=== PATIENT | female | born 1960 | race Caucasian/White ===

== ENCOUNTER 2017-05-27 16:38 | Inpatient (IN) | payer SELFPAY ==
[~2017-05-27] VITALS: Ht 157.5 cm; Wt 52.5 kg
[2017-05-27 17:11] VITALS: BP 140/78; PULSE 107; RESP 12; TEMP 97.7; O2SAT 97
[2017-05-27 17:22] VITALS: BP 140/78; PULSE 107; RESP 12; TEMP 97.7; O2SAT 97
[2017-05-27] MEDS ORDERED: SODIUM CHLORIDE 0.9% FLUSH 5 ML FLUSH IV FLUSH PRN (17:30)
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
--- NOTE | 2017-05-27 17:55 | RADRPT ---
EXAM DATE/TIME: 05/27/2017 17:38 [facility] COMPARISON: No previous studies available for comparison. INDICATIONS : Short of breath and syncope. MEDICAL HISTORY : None. SURGICAL HISTORY : None. ENCOUNTER: Initial ACUITY: 1 day PAIN SCORE: 0/10 LOCATION: Bilateral chest FINDINGS: A single view of the chest demonstrates the lungs to be symmetrically aerated without evidence of mas s, infiltrate or effusion. The cardiomediastinal contours are unremarkable. Osseous structures are intact. CONCLUSION: No acute disease. Dayron Lombardi MD on May 27, 2017 at 17:53 Board Certified Radiologist. This report was verified electronically.
[2017-05-27 18:14] LABS: BASOPHIL # 0.1 TH/MM3 (0-0.2); BASOPHIL % 0.6 % (0.0-2.0); HEMATOCRIT 36.9 % (35.0-46.0); HEMO FLAGS DIFF FINAL; LYMPH % 28.3 % (9.0-44.0); LYMPHOCYTE # 2.7 TH/MM3 (1.0-4.8); MEAN CELL VOLUME 91.6 FL (80.0-100.0); MEAN CORPUSCULAR HGB CONC 33.9 % (32.0-36.0); MONO % 8.7 % (0.0-8.0); NEUT % 62.4 % (16.0-70.0); PLATELET COUNT 332 TH/MM3 (150-450); RED BLOOD COUNT 4.03 MIL/MM3 (4.00-5.30); RED CELL DISTRIBUTION WIDTH 14.5 % (11.6-17.2); WHITE BLOOD COUNT 9.6 TH/MM3 (4.0-11.0)
[2017-05-27 18:27] LABS: INTERNATIONAL NORMALIZED RATIO 0.9 RATIO; PROTHROMBIN TIME - PATIENT 9.7 SEC (9.8-11.6)
[2017-05-27 18:28] LABS: ANION GAP 13 MEQ/L (5-15)
[2017-05-27 18:29] LABS: APTT (PATIENT) 24.1 SEC (24.3-30.1)
[2017-05-27 18:33] LABS: ALKALINE PHOSPHATASE 79 U/L (45-117); ALT (GPT) 85 U/L (10-53); AST (GOT) 89 U/L (15-37); BICARBONATE 23.4 MEQ/L (21.0-32.0); BLOOD UREA NITROGEN 10 MG/DL (7-18); CHLORIDE 83 MEQ/L (98-107); CREATINE KINASE 333 U/L (26-192); GLOMERULAR FILTRATION RATE 78 ML/MIN (>89); TOTAL BILIRUBIN ADULT 0.3 MG/DL (0.2-1.0)
[2017-05-27 18:45] LABS: ALCOHOL 374 MG/DL (0-5); POTASSIUM 4.8 MEQ/L (3.5-5.1)
[2017-05-27 18:46] LABS: SODIUM (NA) 119 MEQ/L (136-145)
--- NOTE | 2017-05-27 18:56 | RADRPT ---
EXAM DATE/TIME: 05/27/2017 18:28 [facility] COMPARISON: No previous studies available for comparison. INDICATIONS : Confusion with altered mental status. RADIATION DOSE: 28.45 CTDIvol (mGy) MEDICAL HISTORY : Diabetes mellitus type 2. SURGICAL HISTORY : Cholecystectomy. section. ENCOUNTER: Initial ACUITY: 1 day PAIN SCALE: 9/10 LOCATION: Bilateral cranial TECHNIQUE: Multiple contiguous axial images were obtained of the head. Using automated exposure control and adj ustment of the mA and/or kV according to patient size, radiation dose was kept as low as reasonably a chievable to obtain optimal diagnostic quality images. DICOM format image data is available electro nically for review and comparison. FINDINGS: CEREBRUM: The ventricles are normal for age. No evidence of midline shift, mass lesion, hemorrhage or acute in farction. No extra-axial fluid collections are seen. POSTERIOR FOSSA: The cerebellum and brainstem are intact. The 4th ventricle is midline. The cerebellopontine angle i s unremarkable. EXTRACRANIAL: The visualized portion of the orbits is intact. SKULL: The calvaria is intact. No evidence of skull fracture. CONCLUSION: Normal examination for a patient of this age. Kevin Whitaker MD on May 27, 2017 at 18:54 Board Certified Radiologist. This report was verified electronically.
[2017-05-27 19:01] LABS: CKMB 2.3 NG/ML (0.5-3.6)
[2017-05-27] MEDS ORDERED: SODIUM CHLOR 0.9% 1000 ML INJ 1,000 ML IV ONE ×2 (19:15→20:45)
[2017-05-27] MEDS ORDERED: SODIUM CHLOR 0.9% 1000 ML INJ 1,000 ML IV SCH (19:55)
[2017-05-27 19:59] LABS: LACTIC ACID GHOST NOT REPORTABLE
[2017-05-27] MEDS ORDERED: NALOXONE HCL 0.4 MG/ML AMP IV PRN (20:00)
[2017-05-27] MEDS ORDERED: SODIUM CHLORIDE 0.9% FLUSH 10 ML FLUSH IV FLUSH PRN (20:00)
[2017-05-27 20:06] VITALS: BP 134/91; PULSE 99; RESP 18; O2SAT 99
[2017-05-27 21:00] VITALS: BP 143/82; PULSE 93; RESP 20; TEMP 98.1; O2SAT 97
[2017-05-27] MEDS: SODIUM CHLORIDE 0.9% FLUSH 10 ML FLUSH IV FLUSH SCH (21:00)
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
[2017-05-27] MEDS: LORazepam 2 MG/ML VIAL IV PUSH PRN ×2 (21:39→23:57)
[2017-05-27 22:14] VITALS: PULSE 104
[2017-05-27] MEDS: SODIUM CHLOR 0.9% 1000 ML INJ 1,000 ML IV SCH (23:27)
[2017-05-28] VITALS (10 sets, daily range): BP systolic 117–153; BP diastolic 58–82; PULSE 81–120; RESP 16–22; TEMP 96.9–99.5; O2SAT 93–99
[2017-05-28 00:21] LABS: BICARBONATE 26.5 MEQ/L (21.0-32.0); POTASSIUM 3.9 MEQ/L (3.5-5.1)
[2017-05-28 00:44] LABS: CKMB 2.4 NG/ML (0.5-3.6)
[2017-05-28 00:47] LABS: BACTERIA, URINE RARE /hpf; BLOOD, URINE NEG (NEG); COMMENT (UR) CULT NOT INDICATED; CULTURE IF INDICATED CULT NOT INDICATED; GLUCOSE,URINE NEG (NEG); KETONE, URINE NEG (NEG); NITRITE,URINE NEG (NEG); PH, URINE 6.5 (5.0-8.5); SQUAMOUS EPITHELIAL CELL URINE <1 /hpf (0-5); URINE COLOR COLORLESS (YELLW/STRAW)
[2017-05-28 03:25] LABS: AUTOMATED NEUTROPHIL # 5.7 TH/MM3 (1.8-7.7); BASOPHIL % 0.4 % (0.0-2.0); EOSINOPHIL % 0.2 % (0.0-4.0); HEMATOCRIT 31.6 % (35.0-46.0); HEMO FLAGS DIFF FINAL; LYMPH % 17.7 % (9.0-44.0); LYMPHOCYTE # 1.4 TH/MM3 (1.0-4.8); MEAN CELL VOLUME 92.3 FL (80.0-100.0); MEAN CORPUSCULAR HEMOGLOBIN 31.9 PG (27.0-34.0); MEAN CORPUSCULAR HGB CONC 34.6 % (32.0-36.0); MONO % 7.8 % (0.0-8.0); NEUT % 73.9 % (16.0-70.0); PLATELET COUNT 232 TH/MM3 (150-450); RED BLOOD COUNT 3.42 MIL/MM3 (4.00-5.30); RED CELL DISTRIBUTION WIDTH 14.4 % (11.6-17.2); WHITE BLOOD COUNT 7.8 TH/MM3 (4.0-11.0)
[2017-05-28 03:43] LABS: ALT (GPT) 58 U/L (10-53); ANION GAP 12 MEQ/L (5-15); AST (GOT) 38 U/L (15-37); BICARBONATE 24.7 MEQ/L (21.0-32.0); BLOOD UREA NITROGEN 9 MG/DL (7-18); CHLORIDE 101 MEQ/L (98-107); GLOMERULAR FILTRATION RATE 80 ML/MIN (>89); POTASSIUM 3.8 MEQ/L (3.5-5.1); SODIUM (NA) 138 MEQ/L (136-145)
[2017-05-28 03:45] LABS: ALKALINE PHOSPHATASE 65 U/L (45-117); CREATINE KINASE 244 U/L (26-192); TOTAL BILIRUBIN ADULT 0.2 MG/DL (0.2-1.0)
[2017-05-28] MEDS: LORazepam 2 MG/ML VIAL IV PUSH PRN ×6 (03:58→21:31)
[2017-05-28 04:03] LABS: CKMB 1.7 NG/ML (0.5-3.6)
[2017-05-28] MEDS: chlordiazePOXIDE 25 MG CAP PO SCH ×3 (08:41→20:06)
[2017-05-28] MEDS: ENOXAPARIN SODIUM 40 MG/0.4 ML SYRINGE SQ SCH (08:41)
[2017-05-28] MEDS: PANTOPRAZOLE SOD 40 MG DELAYED RELEASE TAB PO SCH (08:41)
[2017-05-28] MEDS: SODIUM CHLOR 0.9% 1000 ML INJ 1,000 ML IV SCH ×2 (08:43→15:33)
[2017-05-28] MEDS: SODIUM CHLORIDE 0.9% FLUSH 10 ML FLUSH IV FLUSH SCH ×2 (08:50→21:00)
[2017-05-28] MEDS ORDERED: ASPIRIN 325 MG TAB PO ONE (09:15)
[2017-05-28] MEDS ORDERED: LORazepam 2 MG/ML VIAL IV PUSH PRN (09:15)
[2017-05-28] MEDS ORDERED: FLUMAZENIL 0.5 MG/5 ML VIAL IV PUSH PRN (09:15)
[2017-05-28] MEDS ORDERED: LORazepam 1 MG TAB PO PRN (09:15)
[2017-05-28 11:08] LABS: BICARBONATE 27.8 MEQ/L (21.0-32.0); POTASSIUM 3.4 MEQ/L (3.5-5.1)
[2017-05-28 11:11] LABS: CREATINE KINASE 231 U/L (26-192)
[2017-05-28 16:19] LABS: CREATINE KINASE 197 U/L (26-192)
[2017-05-28 16:31] LABS: CKMB 0.9 NG/ML (0.5-3.6)
[2017-05-28] MEDS ORDERED: POTASSIUM BICARBONATE 25 MEQ EFFERVESCENT TAB PO ONE (17:15)
--- NOTE | 2017-05-28 17:23 | EKG ---
Date Performed: 05/27/2017 Time Performed: 17:28:52 PTAGE: 56 years EKG: SINUS TACHYCARDIA ABNORMAL RHYTHM ECG NO PREVIOUS TRACING DOCTOR: Breann Henderson Interpretating Date/Time 05/28/2017 17:22:00
--- NOTE | 2017-05-28 17:23 | HHI.PR ---
Subjective Remarks Patient states she feels anxious denies sob however c/o chest pain denies nausea or vomiting denies hallucinations Objective Vitals Vital Signs Date Time Temp Pulse Resp B/P (MAP) Pulse Ox O2 Delivery O2 Flow Rate FiO2 05/28/17 15:47 94 05/28/17 12:08 93 05/28/17 12:00 99.3 108 18 142/75 (97) 99 05/28/17 12:00 99.3 108 18 142/75 (97) 99 05/28/17 08:05 97 05/28/17 08:00 99.1 101 16 134/78 (96) 93 05/28/17 04:07 99.3 120 22 153/79 (103) 98 05/28/17 00:09 109 05/28/17 00:00 96.9 81 18 117/58 (77) 98 05/28/17 00:00 98.9 110 20 130/75 (93) 98 05/27/17 22:14 104 05/27/17 21:00 98.1 93 20 143/82 (102) 97 05/27/17 20:39 05/27/17 20:06 99 18 134/91 (105) 99 Room Air 05/27/17 17:22 97.7 107 12 140/78 (98) 97 Room Air 05/27/17 17:11 97.7 107 12 140/78 (98) 97 I/O 05/27/17 05/27/17 05/27/17 05/28/17 05/28/17 05/28/17 06:59 14:59 22:59 06:59 14:59 22:59 Intake Total 1000 ml 1180 ml 1000 ml Output Total 1400 ml 1100 ml Balance 1000 ml -220 ml -100 ml Intake Oral 480 ml IV Total 1000 ml 700 ml 1000 ml Output Urine Total 1400 ml 1100 ml # Voids 1 Result Diagram: 05/28/17 0308 05/28/17 1031 Imaging Last Impressions Head CT 05/27/171719 Signed Impressions: Service Date/Time: Saturday, May 27, 2017 18:28 - CONCLUSION: Normal examination for a patient of this age. Kvein Whitaker MD Chest X-Ray 05/27/171719 Signed Impressions: Service Date/Time: Sejal, May 27, 2017 17:38 - CONCLUSION: No acute disease. Dayron Lombardi MD Objective Remarks GENERAL: This is middle aged lady, anxious, tremulous, pleasant, not in distress , some tremors noted SKIN: No rashes, ecchymoses or lesions. Cool and dry. HEAD: Atraumatic. Normocephalic. No temporal or scalp tenderness. EYES: Pupils equal round and reactive. Extraocular motions intact. No scleral icterus. No injection or drainage. ENT: Nose without bleeding, purulent drainage or septal hematoma. Airway patent. NECK: Trachea midline. No JVD CARDIOVASCULAR: Regular rate and rhythm without murmurs, gallops, or rubs. RESPIRATORY: Clear to auscultation. Breath sounds equal bilaterally. No wheezes , rales, or rhonchi. GASTROINTESTINAL: Abdomen soft, non-tender, nondistended. No guarding. MUSCULOSKELETAL: Extremities without clubbing, cyanosis, or edema.No calf tenderness. NEUROLOGICAL: Awake and alert. Motor and sensory grossly within normal limits. Normal speech. Medications and IVs Current Medications Medications (Trade) Dose Ordered Sig/Jeremy Route Start Time Stop Time Status Last Admin (NS Flush) 2 ml UNSCH PRN IV FLUSH 05/27/17 20:00 (NS Flush) 2 ml BID IV FLUSH 05/27/17 21:00 (Narcan Inj) 0.4 mg UNSCH PRN IV 05/27/17 20:00 Sodium Chloride 1,000 ml @ 125 mls/hr Q8H IV 05/27/17 20:00 05/28/17 15:33 (Ativan Inj) 1 mg Q15M PRN IV PUSH 05/27/17 20:45 05/28/17 08:42 (Ativan Inj) 1 mg Q2H PRN IV PUSH 05/27/17 21:30 05/28/17 05:51 (Librium) 25 mg TID PO 05/28/17 09:00 05/28/17 12:37 (Lovenox Inj) 40 mg Q24H SQ 05/28/17 09:00 05/28/17 08:41 (Protonix) 40 mg DAILY PO 05/28/17 09:00 05/28/17 08:41 (Romazicon Inj) 0.2 mg Q1M PRN IV PUSH 05/28/17 09:15 (Ativan) 1 mg Q4H PRN PO 05/28/17 09:15 (Ativan Inj) 1 mg Q4H PRN IV PUSH 05/28/17 09:15 (Ativan) 2 mg Q2H PRN PO 05/28/17 09:15 (Ativan Inj) 2 mg Q2H PRN IV PUSH 05/28/17 09:15 05/28/17 17:04 (Ativan Inj) 2 mg Q1H PRN IV PUSH 05/28/17 09:15 (Ativan Inj) 2 mg Q15M PRN IV PUSH 05/28/17 09:15 (Effer-K Eff) 25 meq ONCE ONCE PO 05/28/17 17:15 05/28/17 17:16 Urinary Catheter: No A/P Problem List: (1) Encephalopathy acute ICD Code: G93.40 - Encephalopathy, unspecified Plan: Encephalopathy likely multifactorial and related to alcohol intoxication , severe hyponatremia and possible seizure episode. CT scan was normal. Encephalopathy seems to be improving, continue current supportive therapy with IV fluids. Ammonia within normal range (2) Hyponatremia ICD Code: E87.1 - Hypo-osmolality and hyponatremia Status: Acute Plan: Hyponatremia seems to have been rapidly overcorrected with racing serum sodium from 119-136 in a matter of hours on admission. Will monitor neuro checks and switched to 1/2 NS. (3) Lactic acidosis ICD Code: E87.2 - Acidosis Status: Acute Plan: Likely secondary to dehydration and hypovolemia. Resolved after IV fluid administration. (4) Acute alcohol intoxication ICD Code: F10.929 - Alcohol use, unspecified with intoxication, unspecified Status: Acute Plan: Alcohol level on admission was 374. We'll repeat alcohol level. Add thiamine and folic acid. (5) Hypokalemia ICD Code: E87.6 - Hypokalemia Plan: Likely secondary to nutritional deficiency secondary to alcoholism. I will replace orally and continue to monitor BMP. (6) Transaminitis ICD Code: R74.0 - Nonspecific elevation of levels of transaminase and lactic acid dehydrogenase [LDH] Plan: Will check hepatitis profile. Transaminases trending down. Continues to monitor her function test. (7) Elevated CK ICD Code: R74.8 - Abnormal levels of other serum enzymes Plan: Likely mild rhabdomyolysis with total CK elevated at 333, improving with IV fluid administration. Continue IV fluids. (8) Seizure disorder ICD Code: G40.909 - Epilepsy, unspecified, not intractable, without status epilepticus Plan: Patient reportedly has seizure disorder and has been noncompliant with medications. Patient currently is not on any anticonvulsants and has not had seizures. I will check an EEG. (9) Chest pain ICD Code: R07.9 - Chest pain, unspecified Plan: EKG obtained 2 showed sinus rhythm without ST changes suggestive of active ischemia. Cardiac enzymes including troponins negative 3. Chest pain possibly musculoskeletal versus related to gastritis/peptic ulcer disease. Rx Maalox when necessary chest pain. (10) Hyperglycemia ICD Code: R73.9 - Hyperglycemia, unspecified Plan: Likely stress related. I will check hemoglobin A1c. Assessment and Plan GI prophylaxis: PPI. DVT plexus: Lovenox subcutaneously. Problem Qualifiers (1) Acute alcohol intoxication: Qualified Codes: F10.929 - Alcohol use, unspecified with intoxication, unspecified Juanpablo Patel MD May 28, 2017 17:22
--- NOTE | 2017-05-28 17:24 | EKG ---
Date Performed: 05/28/2017 Time Performed: 09:48:55 PTAGE: 56 years EKG: Sinus tachycardia Compared to prior tracing no significant change ABNORMAL RHYTHM ECG PREVIOUS TRACING : 05/27/2017 17.28 DOCTOR: Breann Henderson Interpretating Date/Time 05/28/2017 17:22:14
[2017-05-28 17:52] LABS: BICARBONATE 28.9 MEQ/L (21.0-32.0); POTASSIUM 3.2 MEQ/L (3.5-5.1)
[2017-05-28] MEDS: 1/2 NS + KCL 20 MEQ INJ 1,000 ML IV SCH (20:07)
[2017-05-28 22:02] LABS: CREATINE KINASE 164 U/L (26-192)
[2017-05-28 22:09] LABS: FREE T3 2.74 PG/ML (2.18-3.98); FREE T4 0.8 NG/DL (0.76-1.46)
[2017-05-29] VITALS (8 sets, daily range): BP systolic 126–145; BP diastolic 70–92; PULSE 86–115; RESP 16–20; TEMP 96.9–98.6; O2SAT 97–99
[2017-05-29] MEDS: LORazepam 2 MG/ML VIAL IV PUSH PRN ×15 (00:49→22:57)
[2017-05-29 01:04] LABS: ALT (GPT) 45 U/L (10-53); ANION GAP 6 MEQ/L (5-15); AST (GOT) 25 U/L (15-37); BICARBONATE 29.1 MEQ/L (21.0-32.0); BLOOD UREA NITROGEN 8 MG/DL (7-18); CHLORIDE 105 MEQ/L (98-107); GLOMERULAR FILTRATION RATE 93 ML/MIN (>89); MAGNESIUM 1.9 MG/DL (1.5-2.5); POTASSIUM 3.7 MEQ/L (3.5-5.1); SODIUM (NA) 140 MEQ/L (136-145)
[2017-05-29 01:07] LABS: ALKALINE PHOSPHATASE 61 U/L (45-117); CREATINE KINASE 146 U/L (26-192); TOTAL BILIRUBIN ADULT 0.4 MG/DL (0.2-1.0)
[2017-05-29] MEDS: 1/2 NS + KCL 20 MEQ INJ 1,000 ML IV SCH (05:34)
[2017-05-29 07:40] LABS: AUTOMATED NEUTROPHIL # 3.1 TH/MM3 (1.8-7.7); BASOPHIL % 0.7 % (0.0-2.0); EOSINOPHIL % 0.9 % (0.0-4.0); HEMATOCRIT 30.9 % (35.0-46.0); HEMO FLAGS DIFF FINAL; LYMPH % 31.3 % (9.0-44.0); LYMPHOCYTE # 1.6 TH/MM3 (1.0-4.8); MEAN CELL VOLUME 93.4 FL (80.0-100.0); MEAN CORPUSCULAR HEMOGLOBIN 32.4 PG (27.0-34.0); MEAN CORPUSCULAR HGB CONC 34.6 % (32.0-36.0); MONO % 6.6 % (0.0-8.0); NEUT % 60.5 % (16.0-70.0); PLATELET COUNT 211 TH/MM3 (150-450); RED CELL DISTRIBUTION WIDTH 14.2 % (11.6-17.2); WHITE BLOOD COUNT 5.1 TH/MM3 (4.0-11.0)
[2017-05-29] MEDS: ENOXAPARIN SODIUM 40 MG/0.4 ML SYRINGE SQ SCH (09:18)
[2017-05-29] MEDS: PANTOPRAZOLE SOD 40 MG DELAYED RELEASE TAB PO SCH (09:18)
[2017-05-29] MEDS: SODIUM CHLORIDE 0.9% FLUSH 10 ML FLUSH IV FLUSH SCH ×2 (09:18→19:40)
[2017-05-29] MEDS: chlordiazePOXIDE 25 MG CAP PO SCH ×3 (09:18→16:55)
--- NOTE | 2017-05-29 09:24 | RADRPT ---
EXAM DATE/TIME: 05/29/2017 07:57 [place] COMPARISON: No previous studies available for comparison. INDICATIONS : Increased lab values. MEDICAL HISTORY : Diabetes. Claustrophobia. SURGICAL HISTORY : Cholecystectomy. section. ENCOUNTER: Initial ACUITY: 1 day PAIN SCORE: 2/10 LOCATION: Bilateral upper quadrant MEASUREMENTS: LIVER: 18.7 cm length COMMON DUCT: 5 mm RIGHT KIDNEY: 10.8 x 4.1 x 4.0 cm SPLEEN: 8.5 cm length FINDINGS: LIVER: The liver is enlarged measuring up to 18.7 cm with no focal mass or ductal dilatation. There is no as cites. There is normal hepatopedal blood flow in the portal vein. COMMON DUCT: No intraluminal mass or stone visualized. GALLBLADDER: Status post cholecystectomy. PANCREAS: The visualized portions are within normal limits. RIGHT KIDNEY: No hydronephrosis, stone or solid mass. There is a small cyst in the upper pole. SPLEEN: No focal lesion. CONCLUSION: 1. Liver is mildly prominent with no focal abnormality. 2. Status post cholecystectomy. 3. Small simple cyst in the upper pole the right kidney. Robbie Ryder MD on May 29, 2017 at 9:22 Board Certified Radiologist. This report was verified electronically.
[2017-05-29 12:40] LABS: TRANSFERRIN IRON PROFILE 213 MG/DL (200-360)
[2017-05-29 12:43] LABS: FERRITIN 103 NG/ML (8-252)
[2017-05-29] MEDS: POTASSIUM PHOSPHATE/SODIUM PHOSPHATE 250 MG TAB PO SCH ×2 (12:56→20:42)
--- NOTE | 2017-05-29 15:28 | PD.PSY.CON ---
Provisional Diagnosis Admission Date May 27, 2017 at 19:18 [place] I. Unspecified psychosis, adjustment disorder with anxiety, alcohol use disorder [place] II. Deferred [place] III. HTN, diabetes, metabolic encephalopathy, transaminitis History of Present Illness Service Psychiatry Consult Requested By Dr. Mcdonough Reason for Consult Agitation, hostility, visual hallucinations Primary Care Physician No Primary Care Physician HPI The patient is a 56 years old woman, domiciled with friends in [facility] , unemployed, single, with psychiatric history of anxiety, depression, 3 previous psychiatric hospitalizations, last hospitalization was about 20 years ago, no established outpatient care, no medications, no previous suicidal attempts, alcohol use disorder, she denies history of withdrawal, no detox or rehabilitation programs in the past, medical history of diabetes, hypertension, who came to the ER intoxicated with alcohol, BAL initially was 374, acute transaminitis, chest pain, metabolic encephalopathy. mild rhabdomyolysis with total CK elevated at 333. Consulted to psychiatry due to agitation, hostility, disorganized and aggressive behavior in the floor, visual hallucinations. As per nursing charge patient has been very difficult to handle the floor, she has been voicing, cursing, agitated, had to be restrained in order to protect the IV line. I also spoke with Dr. Mcdonough personally requested the patient is admitted in the med psych unit due to the difficulties managing her in the medical floor. On psychiatric evaluation today patient is found restrained in 2 points. Patient is superficially cooperative, guarded. She is tearful, stating that she is very anxious and depressed. However, patient doesn't elaborate about the reason of her depression remains guarded. 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 At this moment she does not seem to be delirious. However, she reports visual hallucinations "people passing around me and screaming at me". Review of Systems Constitutional: DENIES: Diaphoretic episodes, Fatigue, Fever, Weight gain, Weight loss, Chills, Dizziness, Change in appetite, Night Sweats Endocrine: DENIES: Abnorml menstrual pattern, Heat/cold intolerance, Polydipsia , Polyuria, Polyphagia Eyes: DENIES: Blurred vision, Diplopia, Eye inflammation, Eye pain, Vision loss , Photosensitivity, Double Vision Ears, nose, mouth, throat: DENIES: Tinnitus, Hearing loss, Vertigo, Nasal discharge, Oral lesions, Throat pain, Hoarseness, Ear Pain, Running Nose, Epistaxis, Sinus Pain, Toothache, Odynophagia Respiratory: DENIES: Apneas, Cough, Snoring, Wheezing, Hemoptysis, Sputum production, Shortness of breath Cardiovascular: COMPLAINS OF: Chest pain, DENIES: Palpitations, Syncope, Dyspnea on Exertion, PND, Lower Extremity Edema, Orthopnea, Claudication Gastrointestinal: DENIES: Abdominal pain, Black stools, Bloody stools, Constipation, Diarrhea, Nausea, Vomiting, Difficulty Swallowing, Anorexia Musculoskeletal: DENIES: Joint pain, Muscle aches, Stiffness, Joint Swelling, Back pain, Neck pain Hematologic/lymphatic: DENIES: Bruising, Lymphadenopathy Immunologic/allergic: DENIES: Eczema, Urticaria Neurologic: DENIES: Abnormal gait, Headache, Localized weakness, Paresthesias, Seizures, Speech Problems, Tremor, Poor Balance Psychiatric: COMPLAINS OF: Anxiety, Depression, Hallucinations Past Family Social History Coded Allergies: No Known Allergies (Unverified , 05/27/17) Unable to Obtain Active Prescriptions or Reported Meds Current Medications Medications (Trade) Dose Ordered Sig/Jeremy Route Start Time Stop Time Status Last Admin (NS Flush) 2 ml UNSCH PRN IV FLUSH 05/27/17 20:00 (NS Flush) 2 ml BID IV FLUSH 05/27/17 21:00 (Narcan Inj) 0.4 mg UNSCH PRN IV 05/27/17 20:00 (Ativan Inj) 1 mg Q15M PRN IV PUSH 05/27/17 20:45 05/28/17 08:42 (Ativan Inj) 1 mg Q2H PRN IV PUSH 05/27/17 21:30 05/28/17 05:51 (Librium) 25 mg TID PO 05/28/17 09:00 05/29/17 12:56 (Lovenox Inj) 40 mg Q24H SQ 05/28/17 09:00 05/29/17 09:18 (Protonix) 40 mg DAILY PO 05/28/17 09:00 05/29/17 09:18 (Romazicon Inj) 0.2 mg Q1M PRN IV PUSH 05/28/17 09:15 (Ativan) 1 mg Q4H PRN PO 05/28/17 09:15 (Ativan Inj) 1 mg Q4H PRN IV PUSH 05/28/17 09:15 (Ativan) 2 mg Q2H PRN PO 05/28/17 09:15 (Ativan Inj) 2 mg Q2H PRN IV PUSH 05/28/17 09:15 05/29/17 13:59 (Ativan Inj) 2 mg Q1H PRN IV PUSH 05/28/17 09:15 05/29/17 12:56 (Ativan Inj) 2 mg Q15M PRN IV PUSH 05/28/17 09:15 Potassium Chloride/Sodium Chloride 1,000 ml @ 100 mls/hr Q10H IV 05/28/17 18:00 05/29/17 05:34 (K-Phos Neutral) 250 mg Q8HR PO 05/29/17 14:00 05/29/17 12:56 Family History She denies family psychiatric history, she says that she is adopted Social History Patient was born and raised in [place], she lives with friends in [facility], unemployed, single, highest level of education is some college Patient's Strengths (min. 2) Under observation Physical Exam Vital Signs Vital Signs Date Time Temp Pulse Resp B/P (MAP) Pulse Ox O2 Delivery O2 Flow Rate FiO2 05/29/17 11:33 96.9 112 16 141/80 (100) 99 05/27/17 20:06 Room Air I/O 05/29/17 05/29/17 05/30/17 08:00 16:00 00:00 Output Total 1000 ml 800 ml Balance -1000 ml -800 ml Lab Results Test 05/28/17 17:27 05/28/17 21:18 05/29/17 00:32 05/29/17 06:18 Blood Urea Nitrogen 5 MG/DL 8 MG/DL Creatinine 0.73 MG/DL 0.66 MG/DL Random Glucose 103 MG/DL 102 MG/DL Calcium Level 7.9 MG/DL 8.0 MG/DL Sodium Level 138 MEQ/L 140 MEQ/L Potassium Level 3.2 MEQ/L 3.7 MEQ/L Chloride Level 103 MEQ/L 105 MEQ/L Carbon Dioxide Level 28.9 MEQ/L 29.1 MEQ/L Anion Gap 6 MEQ/L 6 MEQ/L Estimat Glomerular Filtration Rate 82 ML/MIN 93 ML/MIN Lactic Acid Level 1.1 mmol/L 0.6 mmol/L Total Creatine Kinase 164 U/L 146 U/L Troponin I LESS THAN 0.02 NG/ML Free Thyroxine 0.80 NG/DL Free Triiodothyronine (T3) pg/dL 2.74 PG/ML Thyroid Stimulating Hormone 3rd Gen 0.887 uIU/ML Hepatitis A IgM Antibody NEGATIVE Hepatitis B Surface Antigen NEGATIVE Hepatitis B Core IgM Antibody NEGATIVE Hepatitis C Antibody REACTIVE Total Protein 6.0 GM/DL Albumin 3.0 GM/DL Phosphorus Level 2.3 MG/DL Magnesium Level 1.9 MG/DL Alkaline Phosphatase 61 U/L Aspartate Amino Transf (AST/SGOT) 25 U/L Alanine Aminotransferase (ALT/SGPT) 45 U/L Total Bilirubin 0.4 MG/DL Iron Level 81 MCG/DL Total Iron Binding Capacity 298 MCG/DL Percent Iron Saturation 27.2 % Ferritin 103 NG/ML White Blood Count 5.1 TH/MM3 Red Blood Count 3.30 MIL/MM3 Hemoglobin 10.7 GM/DL Hematocrit 30.9 % Mean Corpuscular Volume 93.4 FL Mean Corpuscular Hemoglobin 32.4 PG Mean Corpuscular Hemoglobin Concent 34.6 % Red Cell Distribution Width 14.2 % Platelet Count 211 TH/MM3 Mean Platelet Volume 8.7 FL Neutrophils (%) (Auto) 60.5 % Lymphocytes (%) (Auto) 31.3 % Monocytes (%) (Auto) 6.6 % Eosinophils (%) (Auto) 0.9 % Basophils (%) (Auto) 0.7 % Neutrophils # (Auto) 3.1 TH/MM3 Lymphocytes # (Auto) 1.6 TH/MM3 Monocytes # (Auto) 0.3 TH/MM3 Eosinophils # (Auto) 0.0 TH/MM3 Basophils # (Auto) 0.0 TH/MM3 CBC Comment DIFF FINAL Differential Comment Date/Time Source Procedure Growth Status 05/27/17 23:50 Blood Peripheral Aerobic Blood Culture - Preliminary NO GROWTH IN 2 DAYS Resulted 05/27/17 23:50 Blood Peripheral Anaerobic Blood Culture - Preliminary NO GROWTH IN 2 DAYS Resulted 05/29/17 10:00 Stool Stool Stool Occult Blood (BEKA) - Final HEMOCCULT NEGATIVE Complete Mental Status Examination Appearance woman, age appearing, poorly cooperative, guarded Speech: Unremarkable Orientation: x3 Memory: Unremarkable Thought Process: Goal Directed, Linear Thought Content: Unremarkable Hallucination Type: None Attention and Concentration: Good Suicidal Ideation: No Previous Suicide Attempts: No Homicidal Ideation: No Previous Homicide Attempts: No Judgment: Poor Affect: Sad Mood: Sad Motor Activity: Normal gait Assessment & Plan Problem List: (1) Unspecified psychosis ICD Codes: F29 - Unspecified psychosis not due to a substance or known physiological condition Assessment & Plan: Patient presents with agitation, restraint and 2 points, visual hallucinations, episodic hostility, she also reports depressed mood and anxiety. Patient has been difficult to handle in the medical floor due to her behavioral dysregulation and disorganization. Patient qualifies to be transferred to med psych floor. Continue CIWA protocol. Will increase Librium to 50 mg 3 times a day. Will add Seroquel 50 mg twice a day. Can also give Haldol 2 milligrams IM every 8 hours when necessary agitation and hostility. Assessment & Plan Estimated LOS: Fabio Vidales MD May 29, 2017 15:28
--- NOTE | 2017-05-29 15:43 | HHI.PR ---
Subjective Remarks Patient very confused, having hallucinations and nit following commands as per RN As per RN patient scoring 17 on CIWA assessment scale Patient denies cp/sob afebrile tachycardic Objective Vitals Vital Signs Date Time Temp Pulse Resp B/P (MAP) Pulse Ox O2 Delivery O2 Flow Rate FiO2 05/29/17 11:33 96.9 112 16 141/80 (100) 99 05/29/17 08:00 97.7 94 18 141/86 (104) 99 05/29/17 07:39 86 05/29/17 04:00 97.7 99 20 145/92 (109) 99 05/29/17 00:00 98.6 90 18 126/70 (88) 97 05/28/17 20:00 98.9 97 18 128/78 (95) 96 05/28/17 16:00 99.5 84 18 132/82 (99) 97 05/28/17 15:47 94 I/O 05/28/17 05/28/17 05/28/17 05/29/17 05/29/17 05/29/17 07:00 15:00 23:00 07:00 15:00 23:00 Intake Total 1180 ml 1925 ml Output Total 1400 ml 3100 ml 1000 ml 800 ml Balance -220 ml -1175 ml -1000 ml -800 ml Intake Oral 480 ml 360 ml IV Total 700 ml 1565 ml Output Urine Total 1400 ml 3100 ml 1000 ml 800 ml # Voids 2 # Bowel Movements 3 1 Result Diagram: 05/29/17 0618 05/29/17 0032 Imaging Last Impressions Liver Ultrasound 05/29/17 0000 Signed Impressions: Service Date/Time: April 07:57 - CONCLUSION: 1. Liver is mildly prominent with no focal abnormality. 2. Status post cholecystectomy. 3. Small simple cyst in the upper pole the right kidney. Robbie Ryder MD Head CT 05/27/171719 Signed Impressions: Service Date/Time: Saturday, May 27, 2017 18:28 - CONCLUSION: Normal examination for a patient of this age. Kevin Whitaker MD Chest X-Ray 05/27/171719 Signed Impressions: Service Date/Time: Saturday, May 27, 2017 17:38 - CONCLUSION: No acute disease. Dayron Lobmardi MD Objective Remarks GENERAL: This is middle aged lady, confused, anxious. SKIN: No rashes, ecchymoses or lesions. Cool and dry. HEAD: Atraumatic. Normocephalic. No temporal or scalp tenderness. EYES: Pupils equal round and reactive. Extraocular motions intact. No scleral icterus. No injection or drainage. ENT: Nose without bleeding, purulent drainage or septal hematoma. Airway patent. NECK: Trachea midline. No JVD CARDIOVASCULAR: Tachycardic with regular rate and rhythm without murmurs, gallops, or rubs. RESPIRATORY: Clear to auscultation. Breath sounds equal bilaterally. No wheezes , rales, or rhonchi. GASTROINTESTINAL: Abdomen soft, non-tender, nondistended. No guarding. MUSCULOSKELETAL: Extremities without clubbing, cyanosis, or edema.No calf tenderness. NEUROLOGICAL: Awake and alert. Motor and sensory grossly within normal limits. Normal speech. Medications and IVs Current Medications Medications (Trade) Dose Ordered Sig/Jeremy Route Start Time Stop Time Status Last Admin (NS Flush) 2 ml UNSCH PRN IV FLUSH 05/27/17 20:00 (NS Flush) 2 ml BID IV FLUSH 05/27/17 21:00 (Narcan Inj) 0.4 mg UNSCH PRN IV 05/27/17 20:00 (Ativan Inj) 1 mg Q15M PRN IV PUSH 05/27/17 20:45 05/28/17 08:42 (Ativan Inj) 1 mg Q2H PRN IV PUSH 05/27/17 21:30 05/28/17 05:51 (Lovenox Inj) 40 mg Q24H SQ 05/28/17 09:00 05/29/17 09:18 (Protonix) 40 mg DAILY PO 05/28/17 09:00 05/29/17 09:18 (Romazicon Inj) 0.2 mg Q1M PRN IV PUSH 05/28/17 09:15 (Ativan) 1 mg Q4H PRN PO 05/28/17 09:15 (Ativan Inj) 1 mg Q4H PRN IV PUSH 05/28/17 09:15 (Ativan) 2 mg Q2H PRN PO 05/28/17 09:15 (Ativan Inj) 2 mg Q2H PRN IV PUSH 05/28/17 09:15 05/29/17 13:59 (Ativan Inj) 2 mg Q1H PRN IV PUSH 05/28/17 09:15 05/29/17 12:56 (Ativan Inj) 2 mg Q15M PRN IV PUSH 05/28/17 09:15 Potassium Chloride/Sodium Chloride 1,000 ml @ 100 mls/hr Q10H IV 05/28/17 18:00 05/29/17 05:34 (K-Phos Neutral) 250 mg Q8HR PO 05/29/17 14:00 05/29/17 12:56 (Librium) 50 mg TID PO 05/29/17 18:00 (SEROquel) 25 mg BID PO 05/29/17 15:00 Urinary Catheter: No Vascular Central Line Catheter: No A/P Problem List: (1) Encephalopathy acute ICD Code: G93.40 - Encephalopathy, unspecified Plan: Encephalopathy likely multifactorial and related to alcohol intoxication , severe hyponatremia and possible seizure episode. CT scan was normal. Ammonia within normal range. 05/29 Patient with worsening delirium due to etoh withdrawal. Discussed w RN, I consulted psychiatry. Discussed the case with Dr. Nguyen who recommended increasing Librium dose to 50 mg by mouth 3 times a day to decrease the requirement of IV Ativan. I will also transfer the patient to [facility] [place] [place] given that the patient requires closer monitoring. Retrain physically with soft limb restraints as needed. (2) Hyponatremia ICD Code: E87.1 - Hypo-osmolality and hyponatremia Status: Acute Plan: Hyponatremia seems to have been rapidly overcorrected with racing serum sodium from 119-136 in a matter of hours on admission. Patient with increasing sodium, will switch to 1/4 ns and monitor BMP every 6 hours. (3) Lactic acidosis ICD Code: E87.2 - Acidosis Status: Acute (4) Acute alcohol intoxication ICD Code: F10.929 - Alcohol use, unspecified with intoxication, unspecified Status: Acute Plan: Alcohol level on admission was 374. We'll repeat alcohol level. Add thiamine and folic acid. (5) Hypokalemia ICD Code: E87.6 - Hypokalemia Plan: Likely secondary to nutritional deficiency secondary to alcoholism. K within normal range - continue fluids with K to avoid drop. (6) Transaminitis ICD Code: R74.0 - Nonspecific elevation of levels of transaminase and lactic acid dehydrogenase [LDH] Status: Resolved Plan: Will check hepatitis profile. Transaminases trending down. Continues to monitor her function test. hepatitis C antibody reactive - Patient has h/o hepatitis C. Liver ultrasound did not show any major abnormalities. A small simple cyst on the upper pole of the right kidney. (7) Elevated CK ICD Code: R74.8 - Abnormal levels of other serum enzymes Plan: Likely mild rhabdomyolysis with total CK elevated at 333, improving with IV fluid administration. Continue IV fluids. 05/29 total ck down to normal level. (8) Seizure disorder ICD Code: G40.909 - Epilepsy, unspecified, not intractable, without status epilepticus Plan: Patient reportedly has seizure disorder and has been noncompliant with medications. Patient currently is not on any anticonvulsants and has not had seizures. EEG ordered and pending. (9) Chest pain ICD Code: R07.9 - Chest pain, unspecified Plan: EKG obtained 2 showed sinus rhythm without ST changes suggestive of active ischemia. Cardiac enzymes including troponins negative 3. Chest pain possibly musculoskeletal versus related to gastritis/peptic ulcer disease. Rx Maalox when necessary chest pain. 05/29 repeat EKG on night of 12/27 showed sinus rythm without st changes. (10) Hyperglycemia ICD Code: R73.9 - Hyperglycemia, unspecified Plan: Likely stress related. I will check hemoglobin A1c ----> pending Blood sugars reviewed and stable. Assessment and Plan GI prophylaxis: PPI. DVT plexus: Lovenox subcutaneously. Discharge Planning Transfer to [facility] [place] [place] due to worsening etoh withdrawal. Problem Qualifiers (1) Acute alcohol intoxication: Qualified Codes: F10.929 - Alcohol use, unspecified with intoxication, unspecified Juanpablo Patel MD May 29, 2017 15:43
[2017-05-29] MEDS: THIAMINE INJ 100 MG in SODIUM CHLORIDE 0.9% INJ 100 ML IV SCH (15:45)
[2017-05-29 16:39] LABS: HEMOGLOBIN A1a 1.5 %; HEMOGLOBIN Ao 83.4 %; HEMOGLOBIN F 1.1 %; HEMOGLOBIN LA1C 2.2 %; HEMOGLOBIN P3 4.3 %
[2017-05-29] MEDS: QUEtiapine FUMARATE 25 MG TAB PO SCH ×2 (16:55→19:40)
[2017-05-29] MEDS: POTASSIUM CHLORIDE INJ 20 MEQ, SODIUM CHLORIDE 23.4% INJ 38.5 MEQ in WATER STERILE FOR ... IV SCH (17:00)
--- NOTE | 2017-05-29 17:45 | EKG ---
Date Performed: 05/28/2017 Time Performed: 14:08:57 PTAGE: 56 years EKG: Sinus rhythm NORMAL ECG Compared to prior tracing no significant change PREVIOUS TRACING : 05/28/2017 09.48 DOCTOR: Warren Chandra Interpretating Date/Time 05/29/2017 17:45:39
--- NOTE | 2017-05-29 17:47 | EKG ---
Date Performed: 05/28/2017 Time Performed: 21:09:48 PTAGE: 56 years EKG: Sinus rhythm POSSIBLE RIGHT VENTRICULAR CONDUCTION DELAY BORDERLINE ECG Compared to prior tracing no significant change PREVIOUS TRACING : 05/28/2017 14.08 DOCTOR: Warren Chandra Interpretating Date/Time 05/29/2017 17:46:09
[2017-05-29 21:17] LABS: BICARBONATE 23.6 MEQ/L (21.0-32.0); POTASSIUM 3.9 MEQ/L (3.5-5.1)
[2017-05-29] MEDS: DEXMEDETOMIDINE INJ 200 MCG in SODIUM CHLORIDE 0.9% INJ 50 ML IV PRN (23:44)
[2017-05-30] VITALS (9 sets, daily range): BP systolic 87–125; BP diastolic 55–77; PULSE 53–101; RESP 16–18; TEMP 98–99; O2SAT 96–98
[2017-05-30] MEDS: POTASSIUM PHOSPHATE/SODIUM PHOSPHATE 250 MG TAB PO SCH ×3 (05:35→20:40)
[2017-05-30] MEDS: LORazepam 2 MG/ML VIAL IV PUSH PRN ×9 (05:36→23:17)
[2017-05-30] MEDS: POTASSIUM CHLORIDE INJ 20 MEQ, SODIUM CHLORIDE 23.4% INJ 38.5 MEQ in WATER STERILE FOR ... IV SCH ×3 (05:38→23:16)
[2017-05-30 05:57] LABS: BICARBONATE 25.5 MEQ/L (21.0-32.0); POTASSIUM 3.7 MEQ/L (3.5-5.1)
[2017-05-30] MEDS: THIAMINE INJ 100 MG in SODIUM CHLORIDE 0.9% INJ 100 ML IV SCH (09:00)
[2017-05-30] MEDS: QUEtiapine FUMARATE 25 MG TAB PO SCH ×2 (09:10→20:40)
[2017-05-30] MEDS: PANTOPRAZOLE SOD 40 MG DELAYED RELEASE TAB PO SCH (09:10)
[2017-05-30] MEDS: chlordiazePOXIDE 25 MG CAP PO SCH ×3 (09:10→18:44)
[2017-05-30] MEDS: ENOXAPARIN SODIUM 40 MG/0.4 ML SYRINGE SQ SCH (09:11)
[2017-05-30] MEDS: SODIUM CHLORIDE 0.9% FLUSH 10 ML FLUSH IV FLUSH SCH ×2 (09:14→20:43)
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
[2017-05-30] MEDS ORDERED: SODIUM CHLORID 0.9% 500 ML INJ 500 ML IV ONE (18:45)
--- NOTE | 2017-05-30 18:50 | HHI.PR ---
Subjective Remarks fu for encephalopathy, acute alcohol intoxication, seizure disorder, alcohol withdrawal. As per RN patient very agitated all day that she had to be restrained. As per RN the patient set up and pulled her IV use and her mouth Patient has been trying to get out of bed, is on and off awake/drowsy. Objective Vitals Vital Signs Date Time Temp Pulse Resp B/P (MAP) Pulse Ox O2 Delivery O2 Flow Rate FiO2 05/30/17 16:00 98.8 96 18 98/65 (76) 96 05/30/17 16:00 81 05/30/17 14:00 72 05/30/17 12:00 99.0 86 16 87/55 (66) 96 05/30/17 12:00 86 05/30/17 08:00 98.8 96 18 114/75 (88) 96 05/30/17 08:00 96 05/30/17 04:00 98.0 91 16 120/77 (91) 98 05/30/17 04:00 91 05/30/17 00:00 98.3 101 18 125/76 (92) 96 05/30/17 00:00 101 05/29/17 20:00 98.0 115 20 140/83 (102) 98 I/O 05/29/17 05/29/17 05/29/17 05/30/17 05/30/17 05/30/17 06:59 14:59 22:59 06:59 14:59 22:59 Intake Total 560 ml 350 ml Output Total 1000 ml 800 ml Balance -1000 ml -240 ml 350 ml Intake Oral 560 ml 350 ml Output Urine Total 1000 ml 800 ml # Voids 3 2 3 # Bowel Movements 5 1 0 Result Diagram: 05/29/17 0618 05/30/17 0500 Imaging Last Impressions Liver Ultrasound 05/29/17 0000 Signed Impressions: Service Date/Time: April 07:57 - CONCLUSION: 1. Liver is mildly prominent with no focal abnormality. 2. Status post cholecystectomy. 3. Small simple cyst in the upper pole the right kidney. Robbie Ryder MD Head CT 05/27/17 1720 Signed Impressions: Service Date/Time: Saturday, May 27, 2017 18:28 - CONCLUSION: Normal examination for a patient of this age. Kevin Whitaker MD Chest X-Ray 05/27/17 1720 Signed Impressions: Service Date/Time: Saturday, May 27, 2017 17:38 - CONCLUSION: No acute disease. Dayron Lombardi MD Objective Remarks GENERAL: This is middle aged lady, lethargic under the effect of Precedex. SKIN: No rashes, ecchymoses or lesions. Cool and dry. HEAD: Atraumatic. Normocephalic. No temporal or scalp tenderness. EYES: Pupils equal round and reactive. Extraocular motions intact. No scleral icterus. No injection or drainage. ENT: Nose without bleeding, purulent drainage or septal hematoma. Airway patent. NECK: Trachea midline. No JVD CARDIOVASCULAR: Tachycardic with regular rate and rhythm without murmurs, gallops, or rubs. RESPIRATORY: Clear to auscultation. Breath sounds equal bilaterally. No wheezes , rales, or rhonchi. GASTROINTESTINAL: Abdomen soft, non-tender, nondistended. No guarding. MUSCULOSKELETAL: Extremities without clubbing, cyanosis, or edema.No calf tenderness. NEUROLOGICAL: Awake and alert. Motor and sensory grossly within normal limits. Normal speech. Medications and IVs Current Medications Medications (Trade) Dose Ordered Sig/Jeremy Route Start Time Stop Time Status Last Admin (NS Flush) 2 ml UNSCH PRN IV FLUSH 05/27/17 20:00 (NS Flush) 2 ml BID IV FLUSH 05/27/17 21:00 05/30/17 09:14 (Narcan Inj) 0.4 mg UNSCH PRN IV 05/27/17 20:00 (Ativan Inj) 1 mg Q15M PRN IV PUSH 05/27/17 20:45 05/28/17 08:42 (Ativan Inj) 1 mg Q2H PRN IV PUSH 05/27/17 21:30 05/28/17 05:51 (Lovenox Inj) 40 mg Q24H SQ 05/28/17 09:00 05/30/17 09:11 (Protonix) 40 mg DAILY PO 05/28/17 09:00 05/30/17 09:10 (Romazicon Inj) 0.2 mg Q1M PRN IV PUSH 05/28/17 09:15 (Ativan) 1 mg Q4H PRN PO 05/28/17 09:15 (Ativan Inj) 1 mg Q4H PRN IV PUSH 05/28/17 09:15 (Ativan) 2 mg Q2H PRN PO 05/28/17 09:15 (Ativan Inj) 2 mg Q2H PRN IV PUSH 05/28/17 09:15 05/29/17 13:59 (Ativan Inj) 2 mg Q1H PRN IV PUSH 05/28/17 09:15 05/30/17 10:15 (Ativan Inj) 2 mg Q15M PRN IV PUSH 05/28/17 09:15 05/30/17 15:58 (K-Phos Neutral) 250 mg Q8HR PO 05/29/17 14:00 05/30/17 13:53 (Librium) 50 mg TID PO 05/29/17 18:00 05/30/17 13:53 (SEROquel) 25 mg BID PO 05/29/17 15:00 05/30/17 09:10 Thiamine HCl 100 mg/Sodium Chloride 101 ml @ 101 mls/hr DAILY IV 05/29/17 15:45 Potassium Chloride 20 meq/ Sodium Chloride 38.5 meq/Sterile Water 1,019.625 ml @ 100 mls/hr [id number] IV 05/29/17 17:00 05/30/17 05:38 Dexmedetomidine HCl 200 mcg/ Sodium Chloride 52 ml @ 2.36 mls/hr TITRATE PRN IV 05/29/17 23:30 05/29/17 23:44 Urinary Catheter: No Vascular Central Line Catheter: No A/P Problem List: (1) Encephalopathy acute ICD Code: G93.40 - Encephalopathy, unspecified (2) Hyponatremia ICD Code: E87.1 - Hypo-osmolality and hyponatremia Status: Acute (3) Lactic acidosis ICD Code: E87.2 - Acidosis Status: Acute (4) Acute alcohol intoxication ICD Code: F10.929 - Alcohol use, unspecified with intoxication, unspecified Status: Acute (5) Hypokalemia ICD Code: E87.6 - Hypokalemia (6) Transaminitis ICD Code: R74.0 - Nonspecific elevation of levels of transaminase and lactic acid dehydrogenase [LDH] Status: Resolved (7) Elevated CK ICD Code: R74.8 - Abnormal levels of other serum enzymes (8) Seizure disorder ICD Code: G40.909 - Epilepsy, unspecified, not intractable, without status epilepticus (9) Chest pain ICD Code: R07.9 - Chest pain, unspecified (10) Hyperglycemia ICD Code: R73.9 - Hyperglycemia, unspecified (11) Hypotension ICD Code: I95.9 - Hypotension, unspecified Status: Acute Plan: Likely secondary to increase in Precedex drip. I will order 500 miles of normal saline IV bolus and to hold Precedex drip until BP improved. Assessment and Plan (1) Encephalopathy acute Plan: Encephalopathy likely multifactorial and related to alcohol intoxication , severe hyponatremia and possible seizure episode. CT scan was normal. Ammonia within normal range. 05/29 Patient with worsening delirium due to etoh withdrawal. Discussed w RN, I consulted psychiatry. Discussed the case with Dr. Nguyen who recommended increasing Librium dose to 50 mg by mouth 3 times a day to decrease the requirement of IV Ativan. I will also [place] [facility] that the patient requires closer monitoring. Retrain physically with soft limb restraints as needed. 05/30 patient very agitated and confused, trying to climb out of bed and is pulling IV lines. Needs continued rehabilitation and restraints as needed. Patient was started on Precedex drip overnight. RN states he had been going up and the dose. We'll try to titrate as per protocol. (2) Hyponatremia Plan: Hyponatremia seems to have been rapidly overcorrected with racing serum sodium from 119-136 in a matter of hours on admission. Patient with increasing sodium, will switch to 1/4 ns and monitor BMP every 6 hours. 05/30 sodium has been stable, patient not getting IV fluids consistently since she has been pulling IV lines. Continue 1/4 NS and continue to monitor BMP. (3) Lactic acidosis Plan: Lactic acidosis resolved after IV fluid administration. Likely secondary to dehydration and hypovolemia. Continue IV fluids for now. (4) Acute alcohol intoxication Plan: Alcohol level on admission was 374. We'll repeat alcohol level. Add thiamine and folic acid. (5) Hypokalemia Plan: Likely secondary to nutritional deficiency secondary to alcoholism. K within normal range - continue fluids with K to avoid drop. (6) Transaminitis Plan: Will check hepatitis profile. Transaminases trending down. Continues to monitor her function test. hepatitis C antibody reactive - Patient has h/o hepatitis C. Liver ultrasound did not show any major abnormalities. A small simple cyst on the upper pole of the right kidney. (7) Elevated CK Plan: Likely mild rhabdomyolysis with total CK elevated at 333, improving with IV fluid administration. Continue IV fluids. 05/29 total ck down to normal level. (8) Seizure disorder Plan: Patient reportedly has seizure disorder and has been noncompliant with medications. Patient currently is not on any anticonvulsants and has not had seizures. 05/30 EKG showed overall normal appearing EEG. Some beta with frequency seen at times possible due to medicine effects such as benzodiazepines. No epileptic form features reported. (9) Chest pain Plan: EKG obtained 2 showed sinus rhythm without ST changes suggestive of active ischemia. Cardiac enzymes including troponins negative 3. Chest pain possibly musculoskeletal versus related to gastritis/peptic ulcer disease. Rx Maalox when necessary chest pain. 05/29 repeat EKG on night of 12/27 showed sinus rythm without st changes. (10) Hyperglycemia Plan: Likely stress related. I will check hemoglobin A1c ----> 6.1. Patient is prediabetic. Will likely benefit from being started on metformin upon discharge. Blood sugars reviewed and stable. GI prophylaxis: PPI. DVT plexus: Lovenox subcutaneously. Discharge Planning [place] [facility] Problem Qualifiers (1) Acute alcohol intoxication: Qualified Codes: F10.929 - Alcohol use, unspecified with intoxication, unspecified (2) Hypotension: Qualified Codes: I95.2 - Hypotension due to drugs Juanpablo Patel MD May 30, 2017 18:50
[2017-05-30] MEDS: DEXMEDETOMIDINE INJ 200 MCG in SODIUM CHLORIDE 0.9% INJ 50 ML IV PRN (20:43)
[2017-05-31] VITALS (12 sets, daily range): BP systolic 86–146; BP diastolic 55–76; PULSE 50–99; RESP 16–33; TEMP 97.6–98.7; O2SAT 92–98
[2017-05-31] MEDS: DEXMEDETOMIDINE INJ 200 MCG in SODIUM CHLORIDE 0.9% INJ 50 ML IV PRN ×5 (00:20→20:06)
[2017-05-31] MEDS: LORazepam 2 MG/ML VIAL IV PUSH PRN ×6 (02:25→23:02)
[2017-05-31] MEDS: POTASSIUM PHOSPHATE/SODIUM PHOSPHATE 250 MG TAB PO SCH ×3 (05:19→19:56)
[2017-05-31] MEDS: POTASSIUM CHLORIDE INJ 20 MEQ, SODIUM CHLORIDE 23.4% INJ 38.5 MEQ in WATER STERILE FOR ... IV SCH ×2 (05:54→17:06)
[2017-05-31 05:57] LABS: BICARBONATE 27.7 MEQ/L (21.0-32.0)
[2017-05-31] MEDS: QUEtiapine FUMARATE 25 MG TAB PO SCH ×2 (09:35→19:56)
[2017-05-31] MEDS: chlordiazePOXIDE 25 MG CAP PO SCH ×3 (09:35→17:06)
[2017-05-31] MEDS: SODIUM CHLORIDE 0.9% FLUSH 10 ML FLUSH IV FLUSH SCH ×2 (09:35→19:56)
[2017-05-31] MEDS: PANTOPRAZOLE SOD 40 MG DELAYED RELEASE TAB PO SCH (09:35)
[2017-05-31] MEDS: THIAMINE INJ 100 MG in SODIUM CHLORIDE 0.9% INJ 100 ML IV SCH (09:36)
[2017-05-31] MEDS: ENOXAPARIN SODIUM 40 MG/0.4 ML SYRINGE SQ SCH (09:36)
[2017-05-31] MEDS ORDERED: ALUMINUM/MAGNESIUM/SIMETH 30 ML CUP PO PRN (12:15)
[2017-05-31] MEDS ORDERED: ALUMINUM/MAGNESIUM/SIMETH 30 ML CUP PO ONE (12:15)
--- NOTE | 2017-05-31 12:29 | HHI.PR ---
Subjective Remarks Patient is more awake c/o of chest pain and back pain in the lower and midthoracic region denies sob c/o tremors (+) visual hallucinations denies nausea or abdominal pain As per RN patient has been scoring 18 on her CIWA protocol assesment Objective Vitals Vital Signs Date Time Temp Pulse Resp B/P (MAP) Pulse Ox O2 Delivery O2 Flow Rate FiO2 05/31/17 10:00 69 05/31/17 08:00 54 05/31/17 08:00 97.6 54 18 146/72 (96) 95 05/31/17 06:00 54 05/31/17 04:00 97.9 52 16 131/65 (87) 96 05/31/17 04:00 52 05/31/17 02:00 53 05/31/17 00:00 98.5 61 18 104/65 (78) 96 05/31/17 00:00 50 05/30/17 22:00 53 05/30/17 20:00 98.0 63 16 103/70 (81) 98 05/30/17 20:00 63 05/30/17 18:00 61 05/30/17 16:00 98.8 96 18 98/65 (76) 96 05/30/17 16:00 81 05/30/17 14:00 72 I/O 05/30/17 05/30/17 05/30/17 05/31/17 05/31/17 05/31/17 07:00 15:00 23:00 07:00 15:00 23:00 Intake Total 350 ml 800 ml 720 ml 151 ml Balance 350 ml 800 ml 720 ml 151 ml Intake Oral 350 ml 800 ml 720 ml IV Total 151 ml # Voids 3 4 3 # Bowel Movements 0 0 Result Diagram: 05/29/17 0618 05/31/17 0507 Imaging Last Impressions Liver Ultrasound 05/29/17 0000 Signed Impressions: Service Date/Time: April 07:57 - CONCLUSION: 1. Liver is mildly prominent with no focal abnormality. 2. Status post cholecystectomy. 3. Small simple cyst in the upper pole the right kidney. Robbie Ryder MD Head CT 05/27/17 1720 Signed Impressions: Service Date/Time: Saturday, May 27, 2017 18:28 - CONCLUSION: Normal examination for a patient of this age. Kevin J. Siragusa, MD Chest X-Ray 05/27/17 1720 Signed Impressions: Service Date/Time: Saturday, May 27, 2017 17:38 - CONCLUSION: No acute disease. Dayron Lombardi MD Objective Remarks GENERAL: This is middle aged lady, awake and alert, tremulous. SKIN: No rashes, ecchymoses or lesions. Cool and dry. HEAD: Atraumatic. Normocephalic. No temporal or scalp tenderness. EYES: Pupils equal round and reactive. Extraocular motions intact. No scleral icterus. No injection or drainage. ENT: Nose without bleeding, purulent drainage or septal hematoma. Airway patent. NECK: Trachea midline. No JVD CARDIOVASCULAR: S1-S2 present with regular rate and rhythm without murmurs, gallops, or rubs. RESPIRATORY: Clear to auscultation. Breath sounds equal bilaterally. No wheezes , rales, or rhonchi. GASTROINTESTINAL: Abdomen soft, non-tender, nondistended. No guarding. MUSCULOSKELETAL: Extremities without clubbing, cyanosis, or edema.No calf tenderness. NEUROLOGICAL: Awake and alert. Motor and sensory grossly within normal limits. Normal speech. Medications and IVs Current Medications Medications (Trade) Dose Ordered Sig/Jeremy Route Start Time Stop Time Status Last Admin (NS Flush) 2 ml UNSCH PRN IV FLUSH 05/27/17 20:00 (NS Flush) 2 ml BID IV FLUSH 05/27/17 21:00 05/31/17 09:35 (Narcan Inj) 0.4 mg UNSCH PRN IV 05/27/17 20:00 (Ativan Inj) 1 mg Q15M PRN IV PUSH 05/27/17 20:45 05/28/17 08:42 (Ativan Inj) 1 mg Q2H PRN IV PUSH 05/27/17 21:30 05/28/17 05:51 (Lovenox Inj) 40 mg Q24H SQ 05/28/17 09:00 05/31/17 09:36 (Protonix) 40 mg DAILY PO 05/28/17 09:00 05/31/17 09:35 (Romazicon Inj) 0.2 mg Q1M PRN IV PUSH 05/28/17 09:15 (Ativan) 1 mg Q4H PRN PO 05/28/17 09:15 (Ativan Inj) 1 mg Q4H PRN IV PUSH 05/28/17 09:15 (Ativan) 2 mg Q2H PRN PO 05/28/17 09:15 (Ativan Inj) 2 mg Q2H PRN IV PUSH 05/28/17 09:15 05/31/17 02:25 (Ativan Inj) 2 mg Q1H PRN IV PUSH 05/28/17 09:15 05/31/17 11:39 (Ativan Inj) 2 mg Q15M PRN IV PUSH 05/28/17 09:15 05/30/17 15:58 (K-Phos Neutral) 250 mg Q8HR PO 05/29/17 14:00 05/31/17 05:19 (Librium) 50 mg TID PO 05/29/17 18:00 05/31/17 09:35 (SEROquel) 25 mg BID PO 05/29/17 15:00 05/31/17 09:35 Thiamine HCl 100 mg/Sodium Chloride 101 ml @ 101 mls/hr DAILY IV 05/29/17 15:45 05/31/17 09:36 Potassium Chloride 20 meq/ Sodium Chloride 38.5 meq/Sterile Water 1,019.625 ml @ 100 mls/hr [id number] IV 05/29/17 17:00 05/31/17 05:54 Dexmedetomidine HCl 200 mcg/ Sodium Chloride 52 ml @ 2.36 mls/hr TITRATE PRN IV 05/29/17 23:30 05/31/17 10:30 (Mag-Al Plus Susp Liq) 30 ml ONCE ONCE PO 05/31/17 12:15 05/31/17 12:16 UNV (Mag-Al Plus Susp Liq) 30 ml Q6H PRN PO 05/31/17 12:15 UNV Urinary Catheter: No Vascular Central Line Catheter: No A/P Problem List: (1) Encephalopathy acute ICD Code: G93.40 - Encephalopathy, unspecified (2) Hyponatremia ICD Code: E87.1 - Hypo-osmolality and hyponatremia Status: Acute (3) Lactic acidosis ICD Code: E87.2 - Acidosis Status: Acute (4) Acute alcohol intoxication ICD Code: F10.929 - Alcohol use, unspecified with intoxication, unspecified Status: Acute (5) Hypokalemia ICD Code: E87.6 - Hypokalemia (6) Transaminitis ICD Code: R74.0 - Nonspecific elevation of levels of transaminase and lactic acid dehydrogenase [LDH] Status: Resolved (7) Elevated CK ICD Code: R74.8 - Abnormal levels of other serum enzymes Status: Resolved (8) Seizure disorder ICD Code: G40.909 - Epilepsy, unspecified, not intractable, without status epilepticus Status: Chronic (9) Chest pain ICD Code: R07.9 - Chest pain, unspecified Status: Acute (10) Hyperglycemia ICD Code: R73.9 - Hyperglycemia, unspecified Status: Acute (11) Hypotension ICD Code: I95.9 - Hypotension, unspecified Status: Resolved Plan: Hypotension resolved after Precedex strip was titrated. Patient also on IV fluids. Continue IV fluids. Assessment and Plan (1) Encephalopathy acute Plan: Encephalopathy likely multifactorial and related to alcohol intoxication , severe hyponatremia and possible seizure episode. CT scan was normal. Ammonia was checked and within normal range. The patient with worsening diarrhea delirium on 05/29. Psychiatry was consulted and the case was discussed with Dr. Nguyen who recommended increasing the dose of Librium from 25 minutes by mouth 3 times a day to 50 minutes by mouth 3 times a day in an effort to decrease the doses of IV Ativan that were being administered at the time. The patient was very agitated and confused and scoring 17-18 on the CIWA protocol so she was transferred to the intensive care unit where she was started on Precedex. 9/2 Toxic metabolic encephalopathy from etoh withdrawal. Improving. Continue Precedex and titrate as per RASS. Continue with oral Librium at same dose and continue to administer Ativan as per CIWA protocol. (2) Hyponatremia Plan: Hyponatremia seems to have been rapidly overcorrected with racing serum sodium from 119-136 in a matter of hours on admission. Patient had increase in sodium at 140 and fluids were switched initially to half -normal saline and then to one fourth normal saline. 9/2 sodium is now improving and down to 138. Continue hypotonic saline and continue to monitor BMP. (3) Lactic acidosis Plan: Lactic acidosis resolved after IV fluid administration. Likely secondary to dehydration and hypovolemia. Continue IV fluids for now. (4) Acute alcohol intoxication Plan: Alcohol level on admission was 374. We'll repeat alcohol level. Continue thiamine and folic acid. (5) Hypokalemia Plan: Likely secondary to nutritional deficiency secondary to alcoholism. Potassium within normal level. Continue to administer fluids with added potassium. (6) Transaminitis Plan: Will check hepatitis profile. Transaminases trending down. Continues to monitor her function test. hepatitis C antibody reactive - Patient has h/o hepatitis C. Liver ultrasound did not show any major abnormalities. A small simple cyst on the upper pole of the right kidney. (7) Elevated CK Plan: Likely mild rhabdomyolysis with total CK elevated at 333, improving with IV fluid administration. Continue IV fluids. 05/29 total ck down to normal level. (8) Seizure disorder Plan: Patient reportedly has seizure disorder and has been noncompliant with medications. Patient currently is not on any anticonvulsants and has not had seizures. 05/30 EEG showed overall normal appearing EEG. Some beta with frequency seen at times possible due to medicine effects such as benzodiazepines. No epileptic form features reported. (9) Chest pain Plan: EKG obtained 2 showed sinus rhythm without ST changes suggestive of active ischemia. Cardiac enzymes including troponins negative 3. Chest pain possibly musculoskeletal versus related to gastritis/peptic ulcer disease. Rx Maalox when necessary chest pain. 05/29 repeat EKG on night of 12/27 showed sinus rythm without st changes. 05/31 comprise of chest pain. Ordered EKG stat which shows sinus rhythm at a ventricular rate of [address]-T changes suggestive of active ischemia. (10) Hyperglycemia Plan: Likely stress related. I will check hemoglobin A1c ----> 6.1. Patient is prediabetic. Will likely benefit from being started on metformin upon discharge. Blood sugars reviewed and stable. GI prophylaxis: PPI. DVT plexus: Lovenox subcutaneously. Discharge Planning Continue care at [facility] [place]. Patient still on Precedex drip and scoring high on the CIWA protocol Problem Qualifiers (1) Acute alcohol intoxication: Qualified Codes: F10.929 - Alcohol use, unspecified with intoxication, unspecified (2) Hypotension: Qualified Codes: I95.2 - Hypotension due to drugs Juanpablo Patel MD May 31, 2017 12:29
--- NOTE | 2017-05-31 17:20 | EKG ---
Date Performed: 05/31/2017 Time Performed: 12:17:54 PTAGE: 56 years EKG: Sinus rhythm Normal ECG PREVIOUS TRACING : 05/28/2017 21.09 DOCTOR: Neel Cerna Interpretating Date/Time 05/31/2017 17:18:15
[2017-05-31] MEDS: LORazepam 2 MG TAB PO PRN (20:04)
[2017-05-31] MEDS ORDERED: ACETAMINOPHEN/HYDROcodone 325 MG/5 MG TAB PO ONE (21:30)
[2017-06-01] VITALS (12 sets, daily range): BP systolic 87–99; BP diastolic 51–63; PULSE 58–99; RESP 19–25; TEMP 97.6–98.4; O2SAT 92–97
[2017-06-01] MEDS: LORazepam 2 MG TAB PO PRN ×3 (01:58→18:11)
[2017-06-01] MEDS: LORazepam 2 MG/ML VIAL IV PUSH PRN ×5 (03:05→20:41)
[2017-06-01] MEDS: POTASSIUM PHOSPHATE/SODIUM PHOSPHATE 250 MG TAB PO SCH ×3 (04:24→20:38)
[2017-06-01] MEDS: POTASSIUM CHLORIDE INJ 20 MEQ, SODIUM CHLORIDE 23.4% INJ 38.5 MEQ in WATER STERILE FOR ... IV SCH ×2 (04:24→18:11)
[2017-06-01 06:14] LABS: AUTOMATED NEUTROPHIL # 5.3 TH/MM3 (1.8-7.7); BASOPHIL % 0.6 % (0.0-2.0); EOSINOPHIL # 0.2 TH/MM3 (0-0.4); EOSINOPHIL % 2.1 % (0.0-4.0); HEMATOCRIT 34.4 % (35.0-46.0); HEMO FLAGS DIFF FINAL; LYMPH % 27.1 % (9.0-44.0); LYMPHOCYTE # 2.2 TH/MM3 (1.0-4.8); MEAN CELL VOLUME 93.7 FL (80.0-100.0); MEAN CORPUSCULAR HEMOGLOBIN 30.7 PG (27.0-34.0); MEAN CORPUSCULAR HGB CONC 32.7 % (32.0-36.0); MONO % 6.2 % (0.0-8.0); PLATELET COUNT 206 TH/MM3 (150-450); RED BLOOD COUNT 3.67 MIL/MM3 (4.00-5.30); WHITE BLOOD COUNT 8.2 TH/MM3 (4.0-11.0)
[2017-06-01 06:39] LABS: ANION GAP 9 MEQ/L (5-15); AST (GOT) 22 U/L (15-37); BICARBONATE 29.1 MEQ/L (21.0-32.0); BLOOD UREA NITROGEN 28 MG/DL (7-18); CHLORIDE 102 MEQ/L (98-107); GLOMERULAR FILTRATION RATE 69 ML/MIN (>89); POTASSIUM 4.3 MEQ/L (3.5-5.1); SODIUM (NA) 140 MEQ/L (136-145)
[2017-06-01 06:58] LABS: ALKALINE PHOSPHATASE 59 U/L (45-117); ALT (GPT) 38 U/L (10-53); TOTAL BILIRUBIN ADULT 0.3 MG/DL (0.2-1.0)
[2017-06-01] MEDS: ENOXAPARIN SODIUM 40 MG/0.4 ML SYRINGE SQ SCH (07:25)
[2017-06-01] MEDS: QUEtiapine FUMARATE 25 MG TAB PO SCH ×2 (07:25→20:37)
[2017-06-01] MEDS: PANTOPRAZOLE SOD 40 MG DELAYED RELEASE TAB PO SCH (07:26)
[2017-06-01] MEDS: chlordiazePOXIDE 25 MG CAP PO SCH ×3 (07:26→18:11)
[2017-06-01] MEDS: SODIUM CHLORIDE 0.9% FLUSH 10 ML FLUSH IV FLUSH SCH ×2 (07:26→20:37)
[2017-06-01] MEDS: THIAMINE INJ 100 MG in SODIUM CHLORIDE 0.9% INJ 100 ML IV SCH (07:26)
[2017-06-01] MEDS: DEXMEDETOMIDINE INJ 200 MCG in SODIUM CHLORIDE 0.9% INJ 50 ML IV PRN ×3 (09:49→20:39)
[2017-06-01] MEDS ORDERED: SODIUM CHLORID 0.9% 500 ML INJ 500 ML IV ONE ×2 (10:00→13:30)
--- NOTE | 2017-06-01 13:30 | HHI.PR ---
Subjective Remarks As per RN report the patient was very agitated last night. Noted to be hypotensive and lethargic but arousable when spoken to. denies cp/sob Objective Vitals Vital Signs Date Time Temp Pulse Resp B/P (MAP) Pulse Ox O2 Delivery O2 Flow Rate FiO2 06/01/17 12:02 97 06/01/17 12:00 97.6 58 25 87/55 (66) 94 06/01/17 12:00 58 06/01/17 10:00 66 06/01/17 08:00 60 06/01/17 08:00 98.3 60 23 97/61 (73) 93 06/01/17 06:00 95 06/01/17 04:00 97.9 64 19 91/51 (64) 97 06/01/17 04:00 64 06/01/17 02:00 99 06/01/17 00:00 70 06/01/17 00:00 98.3 70 24 99/63 (75) 92 05/31/17 22:00 99 05/31/17 20:00 98.7 72 33 93/65 (74) 96 05/31/17 20:00 72 05/31/17 18:00 69 05/31/17 16:00 68 05/31/17 16:00 97.8 68 23 86/55 (65) 92 05/31/17 14:00 82 I/O 05/31/17 05/31/17 05/31/17 06/01/17 06/01/17 06/01/17 07:00 15:00 23:00 07:00 15:00 23:00 Intake Total 720 ml 151 ml 3140.625 ml 350 ml 52 ml Balance 720 ml 151 ml 3140.625 ml 350 ml 52 ml Intake Oral 720 ml 960 ml 350 ml Oral Supplement 960 ml IV Total 151 ml 1220.625 ml 52 ml # Voids 3 6 5 # Bowel Movements 0 0 Result Diagram: 06/01/17 0533 06/01/17 0533 Imaging Last Impressions Liver Ultrasound 05/29/17 0000 Signed Impressions: Service Date/Time: April 07:57 - CONCLUSION: 1. Liver is mildly prominent with no focal abnormality. 2. Status post cholecystectomy. 3. Small simple cyst in the upper pole the right kidney. Robbie Ryder MD Head CT [id number]/27/[id number] Signed Impressions: Service Date/Time: Saturday, May 27, 2017 18:28 - CONCLUSION: Normal examination for a patient of this age. Kevin Whitaker MD Chest X-Ray 05/27/171719 Signed Impressions: Service Date/Time: Saturday, May 27, 2017 17:38 - CONCLUSION: No acute disease. Dayron Lombardi MD Objective Remarks GENERAL: This is middle aged lady, lethargic, no tremors noted. SKIN: No rashes, ecchymoses or lesions. Cool and dry. HEAD: Atraumatic. Normocephalic. No temporal or scalp tenderness. EYES: Pupils equal round and reactive. Extraocular motions intact. No scleral icterus. No injection or drainage. ENT: Nose without bleeding, purulent drainage or septal hematoma. Airway patent. NECK: Trachea midline. No JVD CARDIOVASCULAR: S1-S2 present with regular rate and rhythm without murmurs, gallops, or rubs. RESPIRATORY: Clear to auscultation. Breath sounds equal bilaterally. No wheezes , rales, or rhonchi. GASTROINTESTINAL: Abdomen soft, non-tender, nondistended. No guarding. MUSCULOSKELETAL: Extremities without clubbing, cyanosis, or edema.No calf tenderness. NEUROLOGICAL: Awake and alert. Motor and sensory grossly within normal limits. garbled speech. Procedures none Medications and IVs Current Medications Medications (Trade) Dose Ordered Sig/Jeremy Route Start Time Stop Time Status Last Admin (NS Flush) 2 ml UNSCH PRN IV FLUSH 05/27/17 20:00 (NS Flush) 2 ml BID IV FLUSH 05/27/17 21:00 06/01/17 07:26 (Narcan Inj) 0.4 mg UNSCH PRN IV 05/27/17 20:00 (Ativan Inj) 1 mg Q15M PRN IV PUSH 05/27/17 20:45 05/28/17 08:42 (Ativan Inj) 1 mg Q2H PRN IV PUSH 05/27/17 21:30 05/28/17 05:51 (Lovenox Inj) 40 mg Q24H SQ 05/28/17 09:00 06/01/17 07:25 (Protonix) 40 mg DAILY PO 05/28/17 09:00 06/01/17 07:26 (Romazicon Inj) 0.2 mg Q1M PRN IV PUSH 05/28/17 09:15 (Ativan) 1 mg Q4H PRN PO 05/28/17 09:15 (Ativan Inj) 1 mg Q4H PRN IV PUSH 05/28/17 09:15 (Ativan) 2 mg Q2H PRN PO 05/28/17 09:15 06/01/17 10:04 (Ativan Inj) 2 mg Q2H PRN IV PUSH 05/28/17 09:15 06/01/17 10:04 (Ativan Inj) 2 mg Q1H PRN IV PUSH 05/28/17 09:15 05/31/17 16:49 (Ativan Inj) 2 mg Q15M PRN IV PUSH 05/28/17 09:15 05/30/17 15:58 (K-Phos Neutral) 250 mg Q8HR PO 05/29/17 14:00 06/01/17 04:24 (Librium) 50 mg TID PO 05/29/17 18:00 06/01/17 07:26 (SEROquel) 25 mg BID PO 05/29/17 15:00 06/01/17 07:25 Thiamine HCl 100 mg/Sodium Chloride 101 ml @ 101 mls/hr DAILY IV 05/29/17 15:45 06/01/17 07:26 Potassium Chloride 20 meq/ Sodium Chloride 38.5 meq/Sterile Water 1,019.625 ml @ 100 mls/hr [id number] IV 05/29/17 17:00 06/01/17 04:24 Dexmedetomidine HCl 200 mcg/ Sodium Chloride 52 ml @ 2.36 mls/hr TITRATE PRN IV 05/29/17 23:30 06/01/17 09:49 (Mag-Al Plus Susp Liq) 30 ml Q6H PRN PO 05/31/17 12:15 Urinary Catheter: No Vascular Central Line Catheter: No A/P Problem List: (1) Encephalopathy acute ICD Code: G93.40 - Encephalopathy, unspecified (2) Hyponatremia ICD Code: E87.1 - Hypo-osmolality and hyponatremia Status: Acute (3) Lactic acidosis ICD Code: E87.2 - Acidosis Status: Acute (4) Acute alcohol intoxication ICD Code: F10.929 - Alcohol use, unspecified with intoxication, unspecified Status: Acute (5) Hypokalemia ICD Code: E87.6 - Hypokalemia (6) Transaminitis ICD Code: R74.0 - Nonspecific elevation of levels of transaminase and lactic acid dehydrogenase [LDH] Status: Resolved (7) Elevated CK ICD Code: R74.8 - Abnormal levels of other serum enzymes Status: Resolved (8) Seizure disorder ICD Code: G40.909 - Epilepsy, unspecified, not intractable, without status epilepticus Status: Chronic (9) Chest pain ICD Code: R07.9 - Chest pain, unspecified Status: Acute (10) Hyperglycemia ICD Code: R73.9 - Hyperglycemia, unspecified Status: Acute (11) Hypotension ICD Code: I95.9 - Hypotension, unspecified Status: Resolved Plan: Patient still hypotensive - Titrated down Precedex as tolerated by patient's symptoms. Ordered 500 ml ns IV bolus with slight improvement of BP, Will repeat IV normal saline bolus and continue to monitor blood pressure. Discussed with RN. Assessment and Plan (1) Encephalopathy acute Plan: Encephalopathy likely multifactorial and related to alcohol intoxication , severe hyponatremia and possible seizure episode. CT scan was normal. Ammonia was checked and within normal range. The patient with worsening diarrhea delirium on 05/29. Psychiatry was consulted and the case was discussed with Dr. Nguyen who recommended increasing the dose of Librium from 25 minutes by mouth 3 times a day to 50 minutes by mouth 3 times a day in an effort to decrease the doses of IV Ativan that were being administered at the time. The patient was very agitated and confused and scoring 17-18 on the CIWA protocol so she was transferred to the intensive care unit where she was started on Precedex. 05/31 Toxic metabolic encephalopathy from etoh withdrawal. Improving. Continue Precedex and titrate as per RASS. Continue with oral Librium at same dose and continue to administer Ativan as per CIWA protocol. 06/01 Patient still lethargic and confused. Continue Precedex and titrate as per RASS. Continue CIWA and Librium. Continue to restraint as needed. (2) Hyponatremia Plan: Hyponatremia seems to have been rapidly overcorrected with racing serum sodium from 119-136 in a matter of hours on admission. Patient had increase in sodium at 140 and fluids were switched initially to half -normal saline and then to one fourth normal saline. 06/01 Continue hypotonic saline for now. Sodium stable at 140 but slightly increased from 138. (3) Lactic acidosis Plan: Lactic acidosis resolved after IV fluid administration. Likely secondary to dehydration and hypovolemia. Continue IV fluids for now. (4) Acute alcohol intoxication Plan: Alcohol level on admission was 374. We'll repeat alcohol level. Continue thiamine and folic acid. (5) Hypokalemia Plan: Likely secondary to nutritional deficiency secondary to alcoholism. Potassium within normal level. Continue to administer fluids with added potassium. (6) Transaminitis Plan: Will check hepatitis profile. Transaminases trending down. Continues to monitor her function test. hepatitis C antibody reactive - Patient has h/o hepatitis C. Liver ultrasound did not show any major abnormalities. A small simple cyst on the upper pole of the right kidney. (7) Elevated CK Plan: Likely mild rhabdomyolysis with total CK elevated at 333, improving with IV fluid administration. Continue IV fluids. 05/29 total ck down to normal level. (8) Seizure disorder Plan: Patient reportedly has seizure disorder and has been noncompliant with medications. Patient currently is not on any anticonvulsants and has not had seizures. 05/30 EEG showed overall normal appearing EEG. Some beta with frequency seen at times possible due to medicine effects such as benzodiazepines. No epileptic form features reported. (9) Chest pain Plan: EKG obtained 2 showed sinus rhythm without ST changes suggestive of active ischemia. Cardiac enzymes including troponins negative 3. Chest pain possibly musculoskeletal versus related to gastritis/peptic ulcer disease. Rx Maalox when necessary chest pain. 05/29 repeat EKG on night of 12/27 showed sinus rythm without st changes. 05/31 c/o chest pain. Ordered EKG stat which shows sinus rhythm at a ventricular rate of [address]-T changes suggestive of active ischemia. 06/01 Chest pain resolved. (10) Hyperglycemia Plan: Likely stress related. I will check hemoglobin A1c ----> 6.1. Patient is prediabetic. Will likely benefit from being started on metformin upon discharge. Blood sugars reviewed and stable. GI prophylaxis: PPI. DVT plexus: Lovenox subcutaneously. Discharge Planning Continue care at [facility] [place]. Patient still on Precedex drip and scoring high on the CIWA protocol Problem Qualifiers (1) Acute alcohol intoxication: Qualified Codes: F10.929 - Alcohol use, unspecified with intoxication, unspecified (2) Hypotension: Qualified Codes: I95.2 - Hypotension due to drugs Juanpablo Patel MD Jun 01, 2017 13:30
[2017-06-02] VITALS (34 sets, daily range): BP systolic 69–144; BP diastolic 46–80; PULSE 49–122; RESP 12–35; TEMP 98.1–100.9; O2SAT 90–100
[2017-06-02] MEDS: LORazepam 2 MG/ML VIAL IV PUSH PRN ×9 (00:56→23:30)
[2017-06-02] MEDS: DEXMEDETOMIDINE INJ 200 MCG in SODIUM CHLORIDE 0.9% INJ 50 ML IV PRN ×6 (00:57→21:00)
[2017-06-02] MEDS: LORazepam 2 MG TAB PO PRN ×3 (02:15→22:04)
[2017-06-02] MEDS: POTASSIUM CHLORIDE INJ 20 MEQ, SODIUM CHLORIDE 23.4% INJ 38.5 MEQ in WATER STERILE FOR ... IV SCH ×3 (02:16→23:00)
[2017-06-02] MEDS: POTASSIUM PHOSPHATE/SODIUM PHOSPHATE 250 MG TAB PO SCH ×3 (05:35→22:04)
[2017-06-02] MEDS: chlordiazePOXIDE 25 MG CAP PO SCH ×3 (08:07→17:09)
[2017-06-02] MEDS: QUEtiapine FUMARATE 25 MG TAB PO SCH ×2 (08:07→20:17)
[2017-06-02] MEDS: PANTOPRAZOLE SOD 40 MG DELAYED RELEASE TAB PO SCH (08:07)
[2017-06-02] MEDS: SODIUM CHLORIDE 0.9% FLUSH 10 ML FLUSH IV FLUSH SCH ×2 (08:08→20:20)
[2017-06-02] MEDS: ENOXAPARIN SODIUM 40 MG/0.4 ML SYRINGE SQ SCH (08:08)
[2017-06-02] MEDS: THIAMINE INJ 100 MG in SODIUM CHLORIDE 0.9% INJ 100 ML IV SCH (08:08)
[2017-06-02 12:07] LABS: POTASSIUM 4.2 MEQ/L (3.5-5.1)
--- NOTE | 2017-06-02 13:26 | HHI.PR ---
Subjective Remarks As per Rn report patient still confused and agitated Precedex drip had to be increased last night Patient is awake denies cp/sob noted to be hypotensive Objective Vitals Vital Signs Date Time Temp Pulse Resp B/P (MAP) Pulse Ox O2 Delivery O2 Flow Rate FiO2 06/02/17 12:15 58 14 75/52 (60) 97 06/02/17 12:14 58 20 69/46 (54) 97 06/02/17 12:11 57 19 87/53 (64) 97 06/02/17 12:09 58 17 83/52 (62) 97 06/02/17 12:04 59 12 84/56 (65) 98 06/02/17 12:03 57 18 82/52 (62) 99 06/02/17 12:02 60 22 82/53 (63) 100 06/02/17 12:00 61 23 85/52 (63) 99 06/02/17 11:30 60 19 109/59 (76) 100 06/02/17 11:29 61 21 99/60 (73) 100 06/02/17 11:03 60 22 103/64 (77) 100 06/02/17 11:01 62 21 71/50 (57) 98 06/02/17 11:00 68 31 98 06/02/17 10:30 60 17 81/61 (68) 99 06/02/17 10:00 49 15 109/71 (84) 96 06/02/17 09:30 51 15 106/68 (81) 95 06/02/17 09:00 49 15 119/75 (90) 97 06/02/17 08:30 57 18 126/73 (90) 99 06/02/17 08:01 61 17 127/60 (82) 98 06/02/17 08:00 61 19 97 06/02/17 08:00 98.3 06/02/17 04:00 98.3 66 19 108/65 (79) 90 06/02/17 00:00 98.1 93 29 106/61 (76) 96 06/01/17 20:00 98.0 91 23 91/58 (69) 96 06/01/17 18:00 62 06/01/17 16:00 63 06/01/17 16:00 98.4 63 25 95/56 (69) 97 06/01/17 14:00 83 I/O 06/01/17 06/01/17 06/01/17 06/02/17 06/02/17 06/02/17 06:59 14:59 22:59 06:59 14:59 22:59 Intake Total 350 ml 1653 ml 2075 ml 480 ml Balance 350 ml 1653 ml 2075 ml 480 ml Intake Oral 350 ml 1200 ml 480 ml IV Total 1653 ml 875 ml # Voids 5 4 6 # Bowel Movements 0 1 Result Diagram: 06/01/17 0533 06/02/17 1034 Imaging Last Impressions Liver Ultrasound 05/29/17 0000 Signed Impressions: Service Date/Time: April 07:57 - CONCLUSION: 1. Liver is mildly prominent with no focal abnormality. 2. Status post cholecystectomy. 3. Small simple cyst in the upper pole the right kidney. Robbie Ryder MD Head CT 05/27/17 1720 Signed Impressions: Service Date/Time: Saturday, May 27, 2017 18:28 - CONCLUSION: Normal examination for a patient of this age. Kevin Whitaker MD Chest X-Ray 05/27/[id number] Signed Impressions: Service Date/Time: Saturday, May 27, 2017 17:38 - CONCLUSION: No acute disease. Dayron Lombardi MD Objective Remarks GENERAL: This is middle aged lady, awake but confused. SKIN: No rashes, ecchymoses or lesions. Cool and dry. HEAD: Atraumatic. Normocephalic. No temporal or scalp tenderness. EYES: Pupils equal round and reactive. Extraocular motions intact. No scleral icterus. No injection or drainage. ENT: Nose without bleeding, purulent drainage or septal hematoma. Airway patent. NECK: Trachea midline. No JVD CARDIOVASCULAR: S1-S2 present with regular rate and rhythm without murmurs, gallops, or rubs. RESPIRATORY: Clear to auscultation. Breath sounds equal bilaterally. No wheezes , rales, or rhonchi. GASTROINTESTINAL: Abdomen soft, non-tender, nondistended. No guarding. MUSCULOSKELETAL: Extremities without clubbing, cyanosis, or edema.No calf tenderness. NEUROLOGICAL: Awake and alert. Motor and sensory grossly within normal limits. follows simple commands. Procedures none Medications and IVs Current Medications Medications (Trade) Dose Ordered Sig/Jeremy Route Start Time Stop Time Status Last Admin (NS Flush) 2 ml UNSCH PRN IV FLUSH 05/27/17 20:00 (NS Flush) 2 ml BID IV FLUSH 05/27/17 21:00 06/02/17 08:08 (Narcan Inj) 0.4 mg UNSCH PRN IV 05/27/17 20:00 (Ativan Inj) 1 mg Q15M PRN IV PUSH 05/27/17 20:45 06/02/17 08:08 (Ativan Inj) 1 mg Q2H PRN IV PUSH 05/27/17 21:30 05/28/17 05:51 (Lovenox Inj) 40 mg Q24H SQ 05/28/17 09:00 06/02/17 08:08 (Protonix) 40 mg DAILY PO 05/28/17 09:00 06/02/17 08:07 (Romazicon Inj) 0.2 mg Q1M PRN IV PUSH 05/28/17 09:15 (Ativan) 1 mg Q4H PRN PO 05/28/17 09:15 (Ativan Inj) 1 mg Q4H PRN IV PUSH 05/28/17 09:15 (Ativan) 2 mg Q2H PRN PO 05/28/17 09:15 06/02/17 06:06 (Ativan Inj) 2 mg Q2H PRN IV PUSH 05/28/17 09:15 06/02/17 00:56 (Ativan Inj) 2 mg Q1H PRN IV PUSH 05/28/17 09:15 05/31/17 16:49 (Ativan Inj) 2 mg Q15M PRN IV PUSH 05/28/17 09:15 05/30/17 15:58 (K-Phos Neutral) 250 mg Q8HR PO 05/29/17 14:00 06/02/17 05:35 (Librium) 50 mg TID PO 05/29/17 18:00 06/02/17 08:07 (SEROquel) 25 mg BID PO 05/29/17 15:00 06/02/17 08:07 Thiamine HCl 100 mg/Sodium Chloride 101 ml @ 101 mls/hr DAILY IV 05/29/17 15:45 06/02/17 08:08 Potassium Chloride 20 meq/ Sodium Chloride 38.5 meq/Sterile Water 1,019.625 ml @ 100 mls/hr [id number] IV 05/29/17 17:00 06/02/17 09:50 Dexmedetomidine HCl 200 mcg/ Sodium Chloride 52 ml @ 2.36 mls/hr TITRATE PRN IV 05/29/17 23:30 06/02/17 09:43 (Mag-Al Plus Susp Liq) 30 ml Q6H PRN PO 05/31/17 12:15 Urinary Catheter: No Vascular Central Line Catheter: No A/P Problem List: (1) Encephalopathy acute ICD Code: G93.40 - Encephalopathy, unspecified (2) Hyponatremia ICD Code: E87.1 - Hypo-osmolality and hyponatremia Status: Resolved (3) Lactic acidosis ICD Code: E87.2 - Acidosis Status: Resolved (4) Acute alcohol intoxication ICD Code: F10.929 - Alcohol use, unspecified with intoxication, unspecified Status: Resolved (5) Hypokalemia ICD Code: E87.6 - Hypokalemia Status: Resolved (6) Transaminitis ICD Code: R74.0 - Nonspecific elevation of levels of transaminase and lactic acid dehydrogenase [LDH] Status: Resolved (7) Elevated CK ICD Code: R74.8 - Abnormal levels of other serum enzymes Status: Resolved (8) Seizure disorder ICD Code: G40.909 - Epilepsy, unspecified, not intractable, without status epilepticus Status: Chronic (9) Chest pain ICD Code: R07.9 - Chest pain, unspecified Status: Resolved (10) Hyperglycemia ICD Code: R73.9 - Hyperglycemia, unspecified Status: Resolved (11) Hypotension ICD Code: I95.9 - Hypotension, unspecified Status: Resolved Assessment and Plan (1) Encephalopathy acute Plan: Encephalopathy likely multifactorial and related to alcohol intoxication , severe hyponatremia and possible seizure episode. CT scan was normal. Ammonia was checked and within normal range. The patient with worsening diarrhea delirium on 05/29. Psychiatry was consulted and the case was discussed with Dr. Nguyen who recommended increasing the dose of Librium from 25 minutes by mouth 3 times a day to 50 minutes by mouth 3 times a day in an effort to decrease the doses of IV Ativan that were being administered at the time. The patient was very agitated and confused and scoring 17-18 on the CIWA protocol so she was transferred to the intensive care unit where she was started on Precedex. 06/01 Patient still lethargic and confused. Continue Precedex and titrate as per RASS. Continue CIWA and Librium. Continue to restraint as needed. (2) Hyponatremia Plan: Hyponatremia seems to have been rapidly overcorrected with racing serum sodium from 119-136 in a matter of hours on admission. Patient had increase in sodium at 140 and fluids were switched initially to half -normal saline and then to one fourth normal saline. 06/02 DC hypotonic saline and place on normal saline for maintenance. (3) Lactic acidosis Plan: Lactic acidosis resolved after IV fluid administration. Likely secondary to dehydration and hypovolemia. Continue IV fluids for now. (4) Acute alcohol intoxication Plan: Alcohol level on admission was 374. We'll repeat alcohol level. Continue thiamine and folic acid. 06/02 repeat etoh level on 05/31 is less than 3. (5) Hypokalemia Plan: Likely secondary to nutritional deficiency secondary to alcoholism. Potassium within normal level. Continue to administer fluids with added potassium. (6) Transaminitis Plan: Will check hepatitis profile. Transaminases trending down. Continues to monitor her function test. hepatitis C antibody reactive - Patient has h/o hepatitis C. Liver ultrasound did not show any major abnormalities. A small simple cyst on the upper pole of the right kidney. (7) Elevated CK Plan: Likely mild rhabdomyolysis with total CK elevated at 333, improving with IV fluid administration. Continue IV fluids. 05/29 total ck down to normal level. (8) Seizure disorder Plan: Patient reportedly has seizure disorder and has been noncompliant with medications. Patient currently is not on any anticonvulsants and has not had seizures. 05/30 EEG showed overall normal appearing EEG. Some beta with frequency seen at times possible due to medicine effects such as benzodiazepines. No epileptic form features reported. (9) Chest pain Plan: EKG obtained 2 showed sinus rhythm without ST changes suggestive of active ischemia. Cardiac enzymes including troponins negative 3. Chest pain possibly musculoskeletal versus related to gastritis/peptic ulcer disease. Rx Maalox when necessary chest pain. 05/29 repeat EKG on night of 12/27 showed sinus rythm without st changes. 05/31 c/o chest pain. Ordered EKG stat which shows sinus rhythm at a ventricular rate of [address]-T changes suggestive of active ischemia. 06/01 Chest pain resolved. (10) Hyperglycemia Plan: Likely stress related. I will check hemoglobin A1c ----> 6.1. Patient is prediabetic. Will likely benefit from being started on metformin upon discharge. Blood sugars reviewed and stable. GI prophylaxis: PPI. DVT plexus: Lovenox subcutaneously. Discharge Planning [place] [facility] Patient still on Precedex drip and scoring high on the CIWA protocol Problem Qualifiers (1) Acute alcohol intoxication: Qualified Codes: F10.929 - Alcohol use, unspecified with intoxication, unspecified (2) Hypotension: Qualified Codes: I95.2 - Hypotension due to drugs Juanpablo Patel MD Jun 02, 2017 13:26
[2017-06-02] MEDS ORDERED: SODIUM CHLORID 0.9% 500 ML INJ 500 ML IV ONE (13:30)
[2017-06-02] MEDS ORDERED: Vancomycin Consult Pharmacy 1 EA OTHER SCH (19:30)
[2017-06-02] MEDS ORDERED: ACETAMINOPHEN 500 MG CPLT PO PRN (19:30)
[2017-06-02] MEDS: SODIUM CHLOR 0.9% 1000 ML INJ 1,000 ML IV SCH (20:00)
[2017-06-02] MEDS: VANCOMYCIN INJ 1,000 MG in SODIUM CHLOR 0.9% 250 ML INJ 250 ML IV SCH (20:00)
--- NOTE | 2017-06-02 20:06 | RADRPT ---
EXAM DATE/TIME: 06/02/2017 19:37 [facility] COMPARISON: CHEST SINGLE AP, May 27, 2017, 17:38. INDICATIONS : Fever MEDICAL HISTORY : Diabetes mellitus type II. SURGICAL HISTORY : Cholecystectomy. section. ENCOUNTER: Subsequent ACUITY: 4 - 6 days PAIN SCORE: 0/10 LOCATION: chest FINDINGS: A single AP erect portable view of the chest was obtained and now demonstrates streaky opacity at bot h lung bases. There is no focal consolidation or effusion. The heart and mediastinal structures remai n within normal limits. The bony thorax is intact. There are multiple overlying echocardiogram leads. CONCLUSION: New streaky opacity in both lung bases. Differential diagnosis includes atelectasis. Infiltrate is less likely. Robbie Ryder MD on June 02, 2017 at 20:04 Board Certified Radiologist. This report was verified electronically.
[2017-06-02] MEDS: PIPERACIL-TAZO 4.5 GM PREMIX 100 ML IV SCH (20:17)
[2017-06-02] MEDS ORDERED: ACETAMINOPHEN/HYDROcodone 325 MG/5 MG TAB PO ONE (22:00)
[2017-06-03] VITALS (17 sets, daily range): BP systolic 97–148; BP diastolic 59–105; PULSE 60–124; RESP 14–35; TEMP 97.7–98.7; O2SAT 91–99
[2017-06-03] MEDS: LORazepam 2 MG/ML VIAL IV PUSH PRN ×12 (01:15→23:53)
[2017-06-03] MEDS: DEXMEDETOMIDINE INJ 200 MCG in SODIUM CHLORIDE 0.9% INJ 50 ML IV PRN ×2 (03:30→09:22)
[2017-06-03] MEDS: PIPERACIL-TAZO 4.5 GM PREMIX 100 ML IV SCH ×3 (04:00→20:00)
[2017-06-03] MEDS: SODIUM CHLOR 0.9% 1000 ML INJ 1,000 ML IV SCH (06:00)
[2017-06-03] MEDS: POTASSIUM PHOSPHATE/SODIUM PHOSPHATE 250 MG TAB PO SCH ×2 (06:59→14:16)
[2017-06-03] MEDS: QUEtiapine FUMARATE 25 MG TAB PO SCH ×2 (08:15→20:00)
[2017-06-03] MEDS: THIAMINE INJ 100 MG in SODIUM CHLORIDE 0.9% INJ 100 ML IV SCH (08:15)
[2017-06-03] MEDS: PANTOPRAZOLE SOD 40 MG DELAYED RELEASE TAB PO SCH (08:15)
[2017-06-03] MEDS: chlordiazePOXIDE 25 MG CAP PO SCH ×3 (08:15→17:57)
[2017-06-03] MEDS: ENOXAPARIN SODIUM 40 MG/0.4 ML SYRINGE SQ SCH (08:16)
[2017-06-03] MEDS: SODIUM CHLORIDE 0.9% FLUSH 10 ML FLUSH IV FLUSH SCH ×2 (08:16→20:00)
[2017-06-03] MEDS: POTASSIUM CHLORIDE INJ 20 MEQ, SODIUM CHLORIDE 23.4% INJ 38.5 MEQ in WATER STERILE FOR ... IV SCH (10:58)
[2017-06-03] MEDS: VANCOMYCIN INJ 1,000 MG in SODIUM CHLOR 0.9% 250 ML INJ 250 ML IV SCH (14:16)
[2017-06-03] MEDS ORDERED: diphenhydrAMINE HCL 25 MG CAP PO ONE (17:45)
[2017-06-03 19:35] LABS: BICARBONATE 25.9 MEQ/L (21.0-32.0)
[2017-06-04] VITALS (14 sets, daily range): BP systolic 114–150; BP diastolic 66–96; PULSE 97–122; RESP 18–33; TEMP 98–98.3; O2SAT 95–96
[2017-06-04] MEDS: LORazepam 2 MG TAB PO PRN ×3 (01:02→06:38)
[2017-06-04] MEDS: LORazepam 2 MG/ML VIAL IV PUSH PRN ×3 (02:07→13:51)
[2017-06-04] MEDS ORDERED: LORazepam 2 MG/ML VIAL IM ONE (02:45)
[2017-06-04] MEDS ORDERED: HALOPERIDOL LACTATE 5 MG/ML AMP IM ONE (02:45)
[2017-06-04] MEDS: PIPERACIL-TAZO 4.5 GM PREMIX 100 ML IV SCH ×2 (04:50→12:35)
[2017-06-04 06:17] LABS: AUTOMATED NEUTROPHIL # 4.4 TH/MM3 (1.8-7.7); BASOPHIL % 0.6 % (0.0-2.0); EOSINOPHIL # 0.1 TH/MM3 (0-0.4); EOSINOPHIL % 0.8 % (0.0-4.0); HEMATOCRIT 34.3 % (35.0-46.0); HEMO FLAGS DIFF FINAL; LYMPH % 22.7 % (9.0-44.0); LYMPHOCYTE # 1.6 TH/MM3 (1.0-4.8); MEAN CELL VOLUME 93.8 FL (80.0-100.0); MEAN CORPUSCULAR HEMOGLOBIN 31.5 PG (27.0-34.0); MEAN CORPUSCULAR HGB CONC 33.6 % (32.0-36.0); MONO % 13.2 % (0.0-8.0); NEUT % 62.7 % (16.0-70.0); PLATELET COUNT 257 TH/MM3 (150-450); RED BLOOD COUNT 3.65 MIL/MM3 (4.00-5.30); RED CELL DISTRIBUTION WIDTH 14.6 % (11.6-17.2)
[2017-06-04 07:14] LABS: ALKALINE PHOSPHATASE 64 U/L (45-117); ALT (GPT) 47 U/L (10-53); ANION GAP 7 MEQ/L (5-15); AST (GOT) 38 U/L (15-37); BLOOD UREA NITROGEN 16 MG/DL (7-18); CHLORIDE 106 MEQ/L (98-107); GLOMERULAR FILTRATION RATE 62 ML/MIN (>89); MAGNESIUM 2.5 MG/DL (1.5-2.5); SODIUM (NA) 141 MEQ/L (136-145); TOTAL BILIRUBIN ADULT 0.2 MG/DL (0.2-1.0)
[2017-06-04] MEDS: VANCOMYCIN INJ 1,000 MG in SODIUM CHLOR 0.9% 250 ML INJ 250 ML IV SCH (08:56)
[2017-06-04] MEDS: SODIUM CHLORIDE 0.9% FLUSH 10 ML FLUSH IV FLUSH SCH (09:00)
[2017-06-04] MEDS: chlordiazePOXIDE 25 MG CAP PO SCH ×2 (09:01→12:35)
[2017-06-04] MEDS: ENOXAPARIN SODIUM 40 MG/0.4 ML SYRINGE SQ SCH (09:01)
[2017-06-04] MEDS: QUEtiapine FUMARATE 25 MG TAB PO SCH (09:01)
[2017-06-04] MEDS: PANTOPRAZOLE SOD 40 MG DELAYED RELEASE TAB PO SCH (09:01)
[2017-06-04] MEDS: THIAMINE INJ 100 MG in SODIUM CHLORIDE 0.9% INJ 100 ML IV SCH (10:25)
[2017-06-04] MEDS ORDERED: QUEtiapine FUMARATE 25 MG TAB PO SCH (12:30)
--- NOTE | 2017-06-04 14:56 | HHI.PYPN ---
Subjective Remarks On psychiatric evaluation today patient continues to be disorganized, paranoid, very anxious and confused. Patient has been agitated and hostile in the ICU. I spoke with Dr. Mcdonough who suggested that patient should be transferred to the [facility] psych unit for stabilization of psychosis and behavioral control. Patient will be Kendrick acted to transfer to [facility] psych Review of Systems Other No somatic complaints Objective Alert: Yes Morrison: Person Mood: Agitated Affect: Labile Memory Intact: Comment (no fully assessed) Hallucinations: Other (denies) Delusions: Yes Delusion Type: Paranoid Suicidal: Ideation (no SI) Homicidal: Ideation (no HI) Insight/Judgment Poor Labs Test 06/03/17 18:14 06/04/17 05:28 Blood Urea Nitrogen 19 MG/DL 16 MG/DL Creatinine 1.14 MG/DL 0.93 MG/DL Random Glucose 102 MG/DL 89 MG/DL Calcium Level 9.0 MG/DL 9.7 MG/DL Phosphorus Level 4.1 MG/DL 4.3 MG/DL Sodium Level 140 MEQ/L 141 MEQ/L Potassium Level 4.0 MEQ/L 4.0 MEQ/L Chloride Level 105 MEQ/L 106 MEQ/L Carbon Dioxide Level 25.9 MEQ/L 28.0 MEQ/L Anion Gap 9 MEQ/L 7 MEQ/L Estimat Glomerular Filtration Rate 49 ML/MIN 62 ML/MIN White Blood Count 7.0 TH/MM3 Red Blood Count 3.65 MIL/MM3 Hemoglobin 11.5 GM/DL Hematocrit 34.3 % Mean Corpuscular Volume 93.8 FL Mean Corpuscular Hemoglobin 31.5 PG Mean Corpuscular Hemoglobin Concent 33.6 % Red Cell Distribution Width 14.6 % Platelet Count 257 TH/MM3 Mean Platelet Volume 8.6 FL Neutrophils (%) (Auto) 62.7 % Lymphocytes (%) (Auto) 22.7 % Monocytes (%) (Auto) 13.2 % Eosinophils (%) (Auto) 0.8 % Basophils (%) (Auto) 0.6 % Neutrophils # (Auto) 4.4 TH/MM3 Lymphocytes # (Auto) 1.6 TH/MM3 Monocytes # (Auto) 0.9 TH/MM3 Eosinophils # (Auto) 0.1 TH/MM3 Basophils # (Auto) 0.0 TH/MM3 CBC Comment DIFF FINAL Differential Comment Total Protein 7.7 GM/DL Albumin 3.9 GM/DL Magnesium Level 2.5 MG/DL Alkaline Phosphatase 64 U/L Aspartate Amino Transf (AST/SGOT) 38 U/L Alanine Aminotransferase (ALT/SGPT) 47 U/L Total Bilirubin 0.2 MG/DL Date/Time Source Procedure Growth Status 06/02/17 20:55 Blood Peripheral Aerobic Blood Culture - Preliminary NO GROWTH IN 2 DAYS Resulted 06/02/17 20:55 Blood Peripheral Anaerobic Blood Culture - Preliminary NO GROWTH IN 2 DAYS Resulted 05/29/17 10:00 Stool Stool Stool Occult Blood (BEKA) - Final HEMOCCULT NEGATIVE Complete Vitals/IOs Vital Signs Date Time Temp Pulse Resp B/P (MAP) Pulse Ox O2 Delivery O2 Flow Rate FiO2 06/04/17 12:00 98.0 105 23 115/67 (83) 06/04/17 04:00 95 Intake and Output 06/04/17 06/04/17 06/04/17 07:59 15:59 23:59 Intake Total 340 ml 351 ml Balance 340 ml 351 ml Assessment & Plan Problem List: (1) Unspecified psychosis ICD Codes: F29 - Unspecified psychosis not due to a substance or known physiological condition Assessment & Plan Estimated LOS: days Justification for Cont. Inpt. Patient is acutely psychotic, very paranoid and disorganized, with a transfer to med psych unit. Continue current psychotropic regimen. Fabio Nguyen MD Jun 04, 2017 14:56
[2017-06-04] MEDS ORDERED: QUET1TAB7 PO (15:53)
[2017-06-04] MEDS ORDERED: PANT40TA3 PO (15:53)
[2017-06-04] MEDS ORDERED: ZOSY4.5P IV (15:54)
--- NOTE | 2017-06-04 15:57 | HHI.DCPOC ---
Discharge Care Plan Diagnosis: (1) Acute alcohol intoxication (2) Chest pain (3) Hyperglycemia (4) Lactic acidosis (5) Hypokalemia (6) Hyponatremia (7) Elevated CK (8) Hypotension (9) Transaminitis (10) Unspecified psychosis (11) Encephalopathy acute Goals to Promote Your Health * To prevent worsening of your condition and complications * To maintain your health at the optimal level Directions to Meet Your Goals Take your medications as prescribed Follow your dietary instruction Follow activity as directed Keep your appointments as scheduled Take your immunizations and boosters as scheduled If your symptoms worsen call your PCP, if no PCP go to Urgent Care Center or Emergency Room Smoking is Dangerous to Your Health. Avoid second hand smoke Call the 24-hour hour crisis hotline for domestic abuse at Juanpablo Patel MD Jun 04, 2017 15:57
--- NOTE | 2017-06-04 16:00 | HHI.DS ---
Discharge Summary Admission Date May 27, 2017 at 19:18 Discharge Date: Jun 04, 2017 Admitting Diagnosis AMS, alcohol intoxication, hyponatremia, lactic acidosis (1) Encephalopathy acute ICD Code: G93.40 - Encephalopathy, unspecified Diagnosis: Principal (2) Hyponatremia ICD Code: E87.1 - Hypo-osmolality and hyponatremia Diagnosis: Principal Status: Resolved (3) Lactic acidosis ICD Code: E87.2 - Acidosis Diagnosis: Principal Status: Resolved (4) Acute alcohol intoxication ICD Code: F10.929 - Alcohol use, unspecified with intoxication, unspecified Diagnosis: Principal Status: Resolved (5) Hypokalemia ICD Code: E87.6 - Hypokalemia Diagnosis: Principal Status: Resolved (6) Transaminitis ICD Code: R74.0 - Nonspecific elevation of levels of transaminase and lactic acid dehydrogenase [LDH] Diagnosis: Principal Status: Resolved (7) Elevated CK ICD Code: R74.8 - Abnormal levels of other serum enzymes Diagnosis: Principal Status: Resolved (8) Seizure disorder ICD Code: G40.909 - Epilepsy, unspecified, not intractable, without status epilepticus Diagnosis: Principal Status: Chronic (9) Chest pain ICD Code: R07.9 - Chest pain, unspecified Diagnosis: Principal Status: Resolved (10) Hyperglycemia ICD Code: R73.9 - Hyperglycemia, unspecified Diagnosis: Principal Status: Resolved (11) Hypotension ICD Code: I95.9 - Hypotension, unspecified Diagnosis: Principal Status: Resolved (12) Delirium tremens ICD Code: F10.231 - Alcohol dependence with withdrawal delirium Diagnosis: Principal Procedures none Brief History - From Admission History from patient, ER physician communication, and review of medical records. Patient was somewhat of a poor historian while she was in ER. According to ER communication, patient was brought in by ambulance personnel because she was found running naked in her apartment complex. She was noted to have stool streaks in front of her bilateral knees and lower extremity. Patient herself denies running around as such. She however cannot tell me the exact circumstances of how the ambulance was called. She however tells me that she has not had her seizure medications since about 4 PM yesterday. She is asking for her seizure medications because she is also having tremors. She reports her seizure medication starts with K and when asked whether this was Prior, she stated yes. She takes 3 times a day although she doesn't know the dose. She also reports of chest pains which started around 3 AM. She is not able to describe the nature of her pain. When asked about radiation of the pain, she pointed to her back and to her left armpit. She reports associated nausea. The patient also reports of nausea and vomiting for last couple of days. Denies any black color vomits or red color vomits. Also reports of diarrhea about 5 times a day for past couple of days. Denies any black color stool or red color stool. Denies any blood in her urine or in her stool. Denies any fever or chills. Denies cough. Reports her shortness of breath but then states that her shortness of breath is worse when at rest." Patch when I get up and walk, I am okay" Reports of history of UTI. She also reports of burning and pain on urination the past few days. She was on Bactrim for UTI though she cannot remember the exact date that she was taking. Patient is still somewhat confused as she cannot recall the medications list and she cannot tell me CBC/BMP: 06/04/17 0528 06/04/17 0528 Significant Findings Laboratory Tests Test 06/02/17 10:34 06/02/17 20:50 06/03/17 18:14 06/04/17 05:28 Blood Urea Nitrogen 20 MG/DL (7-18) 19 MG/DL (7-18) Random Glucose 113 MG/DL (74-106) Estimat Glomerular Filtration Rate 75 ML/MIN (>89) 49 ML/MIN (>89) 62 ML/MIN (>89) Acetaminophen Level LESS THAN 2.0 MCG/ML Creatinine 1.14 MG/DL (0.50-1.00) Red Blood Count 3.65 MIL/MM3 (4.00-5.30) Hemoglobin 11.5 GM/DL (11.6-15.3) Hematocrit 34.3 % (35.0-46.0) Monocytes (%) (Auto) 13.2 % (0.0-8.0) Aspartate Amino Transf (AST/SGOT) 38 U/L (15-37) Imaging Last Impressions Chest X-Ray 06/02/17 0000 Signed Impressions: Service Date/Time: Friday, June 02, 2017 19:37 - CONCLUSION: New streaky opacity in both lung bases. Differential diagnosis includes atelectasis. Infiltrate is less likely. Robbie Ryder MD Liver Ultrasound 05/29/17 0000 Signed Impressions: Service Date/Time: April 07:57 - CONCLUSION: 1. Liver is mildly prominent with no focal abnormality. 2. Status post cholecystectomy. 3. Small simple cyst in the upper pole the right kidney. Robbie Ryder MD Head CT 05/27/17 1720 Signed Impressions: Service Date/Time: Saturday, May 27, 2017 18:28 - CONCLUSION: Normal examination for a patient of this age. Kevin Whitaker MD PE at Discharge GENERAL: This is middle aged lady, awake but confused. SKIN: No rashes, ecchymoses or lesions. Cool and dry. HEAD: Atraumatic. Normocephalic. No temporal or scalp tenderness. EYES: Pupils equal round and reactive. Extraocular motions intact. No scleral icterus. No injection or drainage. ENT: Nose without bleeding, purulent drainage or septal hematoma. Airway patent. NECK: Trachea midline. No JVD CARDIOVASCULAR: S1-S2 present with regular rate and rhythm without murmurs, gallops, or rubs. RESPIRATORY: Clear to auscultation. Breath sounds equal bilaterally. No wheezes , rales, or rhonchi. GASTROINTESTINAL: Abdomen soft, non-tender, nondistended. No guarding. MUSCULOSKELETAL: Extremities without clubbing, cyanosis, or edema.No calf tenderness. NEUROLOGICAL: Awake and alert. Motor and sensory grossly within normal limits. follows simple commands. Pt update on day of discharge Patient awake and alert. Delirium resolved. Denies cp/sob Hospital Course (1) Encephalopathy acute Encephalopathy likely multifactorial and related to alcohol intoxication, delirium tremens, severe hyponatremia and possible seizure episode. CT scan was normal. Ammonia was checked and within normal range. The patient with worsening delirium on 05/29. Psychiatry was consulted and the case was discussed with Dr. Nguyen who recommended increasing the dose of Librium from 25 minutes by mouth 3 times a day to 50 minutes by mouth 3 times a day in an effort to decrease the doses of IV Ativan that were being administered at the time. The patient was very agitated and confused and scoring 17-18 on the CIWA protocol so she was transferred to the intensive care unit where she was started on Precedex. Precedex drip titrated to off. Patient's encephalopathy resolved. Once patient stable, the patient was discharged to psychiatry unit. (2) Hyponatremia Plan: Hyponatremia seems to have been rapidly overcorrected with racing serum sodium from 119-136 in a matter of hours on admission. Patient had increase in sodium at 140 and fluids were switched initially to half -normal saline and then to one fourth normal saline. 06/02 DC hypotonic saline and place on normal saline for maintenance. (3) Lactic acidosis Lactic acidosis resolved after IV fluid administration. Likely secondary to dehydration and hypovolemia. Continue IV fluids for now. (4) Acute alcohol intoxication/ Delirium Tremens Alcohol level on admission was 374. Continue thiamine and folic acid. 06/02 repeat etoh level on 05/31 is less than 3. (5) Hypokalemia Likely secondary to nutritional deficiency secondary to alcoholism. Potassium within normal level. Continue to administer fluids with added potassium. (6) Transaminitis . Transaminases trending down. Continues to monitor her function test. hepatitis C antibody reactive - Patient has h/o hepatitis C. Liver ultrasound did not show any major abnormalities. A small simple cyst on the upper pole of the right kidney. (7) Elevated CK Likely mild rhabdomyolysis with total CK elevated at 333, improving with IV fluid administration. Treated with Iv fluids. 05/29 total ck down to normal level. (8) Seizure disorder Patient reportedly has seizure disorder and has been noncompliant with medications. Patient currently is not on any anticonvulsants and has not had seizures. 05/30 EEG showed overall normal appearing EEG. Some beta with frequency seen at times possible due to medicine effects such as benzodiazepines. No epileptic form features reported. (9) Chest pain EKG obtained 2 showed sinus rhythm without ST changes suggestive of active ischemia. Cardiac enzymes including troponins negative 3. Chest pain possibly musculoskeletal versus related to gastritis/peptic ulcer disease. Rx Maalox when necessary chest pain. 05/29 repeat EKG on night of 12/27 showed sinus rythm without st changes. 05/31 c/o chest pain. Ordered EKG stat which shows sinus rhythm at a ventricular rate of [address]-T changes suggestive of active ischemia. 9/ Chest pain resolved. (10) Hyperglycemia Likely stress related. Hemoglobin A1C 6.1. Patient is prediabetic. Discussed with patient - will discuss with primary physician regarding being started on metformin.. GI prophylaxis: PPI. DVT plexus: Lovenox subcutaneously. Pt Condition on Discharge: Stable Discharge Disposition: Disc to Psych Care Fac Discharge Time: > 30 minutes Discharge Instructions DIET: Follow Instructions for: Heart Healthy Diet Activities you can perform: Continue Bedrest Other Activity Instructions: restraint as needed New Medications: Piperacillin-Tazobactam Inj (Zosyn Inj) 4.5 Gram Inj 4.5 GM IV Q8H for Infection for 7 Days, BAG 0 Refills Pantoprazole (Pantoprazole) 40 Mg Tab 40 MG PO DAILY for GI prophylaxis, #20 TAB Quetiapine (Quetiapine) 25 Mg Tab 25 MG PO BID for Agitation, #20 TAB Juanpablo Patel MD Jun 04, 2017 16:00
[2017-06-05] MEDS ORDERED: PHARMACY ORDERED LAB ONE (01:45)
--- NOTE | 2017-06-24 22:01 | HHI.PR ---
Subjective Remarks Late entry - patient seen on 06/03 at 17:10 Patient more awake denies cp/sob Objective Objective Remarks GENERAL: This is middle aged lady, awake but confused. SKIN: No rashes, ecchymoses or lesions. Cool and dry. HEAD: Atraumatic. Normocephalic. No temporal or scalp tenderness. EYES: Pupils equal round and reactive. Extraocular motions intact. No scleral icterus. No injection or drainage. ENT: Nose without bleeding, purulent drainage or septal hematoma. Airway patent. NECK: Trachea midline. No JVD CARDIOVASCULAR: S1-S2 present with regular rate and rhythm without murmurs, gallops, or rubs. RESPIRATORY: Clear to auscultation. Breath sounds equal bilaterally. No wheezes , rales, or rhonchi. GASTROINTESTINAL: Abdomen soft, non-tender, nondistended. No guarding. MUSCULOSKELETAL: Extremities without clubbing, cyanosis, or edema.No calf tenderness. NEUROLOGICAL: Awake and alert. Motor and sensory grossly within normal limits. follows simple commands. Procedures none A/P Problem List: (1) Encephalopathy acute ICD Code: G93.40 - Encephalopathy, unspecified (2) Hyponatremia ICD Code: E87.1 - Hypo-osmolality and hyponatremia Status: Resolved (3) Lactic acidosis ICD Code: E87.2 - Acidosis Status: Resolved (4) Acute alcohol intoxication ICD Code: F10.929 - Alcohol use, unspecified with intoxication, unspecified Status: Resolved (5) Hypokalemia ICD Code: E87.6 - Hypokalemia Status: Resolved (6) Transaminitis ICD Code: R74.0 - Nonspecific elevation of levels of transaminase and lactic acid dehydrogenase [LDH] Status: Resolved (7) Elevated CK ICD Code: R74.8 - Abnormal levels of other serum enzymes Status: Resolved (8) Seizure disorder ICD Code: G40.909 - Epilepsy, unspecified, not intractable, without status epilepticus Status: Chronic (9) Chest pain ICD Code: R07.9 - Chest pain, unspecified Status: Resolved (10) Hyperglycemia ICD Code: R73.9 - Hyperglycemia, unspecified Status: Resolved (11) Hypotension ICD Code: I95.9 - Hypotension, unspecified Status: Resolved (12) Delirium tremens ICD Code: F10.231 - Alcohol dependence with withdrawal delirium Assessment and Plan (1) Encephalopathy acute Plan: Encephalopathy likely multifactorial and related to alcohol intoxication , severe hyponatremia and possible seizure episode. CT scan was normal. Ammonia was checked and within normal range. The patient with worsening diarrhea delirium on 05/29. Psychiatry was consulted and the case was discussed with Dr. Nguyen who recommended increasing the dose of Librium from 25 minutes by mouth 3 times a day to 50 minutes by mouth 3 times a day in an effort to decrease the doses of IV Ativan that were being administered at the time. The patient was very agitated and confused and scoring 17-18 on the CIWA protocol so she was transferred to the intensive care unit where she was started on Precedex. 06/03 Encephalopathy slowly resolving. Discussed with RN - titrate Precedex to off. (2) Hyponatremia Plan: Hyponatremia seems to have been rapidly overcorrected with racing serum sodium from 119-136 in a matter of hours on admission. Patient had increase in sodium at 140 and fluids were switched initially to half -normal saline and then to one fourth normal saline. 06/02 DC hypotonic saline and place on normal saline for maintenance. (3) Lactic acidosis Plan: Lactic acidosis resolved after IV fluid administration. Likely secondary to dehydration and hypovolemia. Continue IV fluids for now. (4) Acute alcohol intoxication Plan: Alcohol level on admission was 374. We'll repeat alcohol level. Continue thiamine and folic acid. 06/02 repeat etoh level on 05/31 is less than 3. (5) Hypokalemia Plan: Likely secondary to nutritional deficiency secondary to alcoholism. Potassium within normal level. Continue to administer fluids with added potassium. (6) Transaminitis Plan: Will check hepatitis profile. Transaminases trending down. Continues to monitor her function test. hepatitis C antibody reactive - Patient has h/o hepatitis C. Liver ultrasound did not show any major abnormalities. A small simple cyst on the upper pole of the right kidney. (7) Elevated CK Plan: Likely mild rhabdomyolysis with total CK elevated at 333, improving with IV fluid administration. Continue IV fluids. 05/29 total ck down to normal level. (8) Seizure disorder Plan: Patient reportedly has seizure disorder and has been noncompliant with medications. Patient currently is not on any anticonvulsants and has not had seizures. 05/30 EEG showed overall normal appearing EEG. Some beta with frequency seen at times possible due to medicine effects such as benzodiazepines. No epileptic form features reported. (9) Chest pain Plan: EKG obtained 2 showed sinus rhythm without ST changes suggestive of active ischemia. Cardiac enzymes including troponins negative 3. Chest pain possibly musculoskeletal versus related to gastritis/peptic ulcer disease. Rx Maalox when necessary chest pain. 05/29 repeat EKG on night of 12/27 showed sinus rythm without st changes. 05/31 c/o chest pain. Ordered EKG stat which shows sinus rhythm at a ventricular rate of [address]-T changes suggestive of active ischemia. 06/01 Chest pain resolved. (10) Hyperglycemia Plan: Likely stress related. I will check hemoglobin A1c ----> 6.1. Patient is prediabetic. Will likely benefit from being started on metformin upon discharge. Blood sugars reviewed and stable. GI prophylaxis: PPI. DVT plexus: Lovenox subcutaneously. Discharge Planning Continue care at [facility] [place]. Patient still on Precedex drip and scoring high on the CIWA protocol Problem Qualifiers (1) Acute alcohol intoxication: Qualified Codes: F10.929 - Alcohol use, unspecified with intoxication, unspecified (2) Hypotension: Qualified Codes: I95.2 - Hypotension due to drugs Juanpablo Patel MD Jun 24, 2017 22:01
== END 2017-06-04 18:01 | DRG 640 ==
LOC: NEPC 16:38 → NEDA 19:18 → HOCA 20:43 → HIMN 05-29 16:30
PROVIDERS: ADMIT Hospitalist; ATTEND Hospitalist
DX: E87.1 Hypo-osmolality and hyponatremia (principal); G93.49 Other encephalopathy; E86.0 Dehydration; E87.2 Acidosis; M62.82 Rhabdomyolysis; I95.9 Hypotension, unspecified; E11.65 Type 2 diabetes mellitus with hyperglycemia; F10.239 Alcohol dependence with withdrawal, unspecified; F10.229 Alcohol dependence with intoxication, unspecified; Y90.8 Blood alcohol level of 240 mg/100 ml or more; E87.6 Hypokalemia; G40.909 Epilepsy, unspecified, not intractable, without status epilepticus; Z78.1 Physical restraint status; Z91.14 Patient's other noncompliance with medication regimen; F29 Unspecified psychosis not due to a substance or known physiological condition
CPT/HCPCS: 70450; 71010; 76705; 76937; 80048; 80053; 80074; 80307; 81001; 82140; 82272; 82550; 82552; 82728; 83036; 83540; 83550; 83605; 83735; 84100; 84439; 84443; 84481; 84484; 85025; 85610; 85730; 87040; 93005; 95819; J1630; J1650; J2060; J2543; J3370; J3411; J3480; J7030; J7040; J7050

== ENCOUNTER 2017-06-04 17:08 | Inpatient (IN) | payer SELFPAY ==
[~2017-06-04 17:08] MED LIST: PANT40TA3 PO; QUET1TAB7 PO; ZOSY4.5P IV
[2017-06-04] MEDS ORDERED: ALUMINUM/MAGNESIUM/SIMETH 30 ML CUP PO PRN (19:15)
[2017-06-04] MEDS ORDERED: MAGNESIUM HYDROXIDE SUSP 30 ML CUP PO PRN (19:15)
[2017-06-04] MEDS ORDERED: LORazepam 2 MG TAB PO PRN (19:15)
[2017-06-04] MEDS ORDERED: LORazepam 2 MG/ML VIAL IV PUSH PRN ×4 (19:15)
[2017-06-04] MEDS ORDERED: LORazepam 1 MG TAB PO PRN ×2 (19:15)
[2017-06-04] MEDS ORDERED: LORazepam 0.5 MG TAB PO PRN (19:15)
[2017-06-04] MEDS: NICOTINE 21 MG/24 HR PATCH T-DERMAL SCH (19:15)
[2017-06-04] MEDS ORDERED: LORazepam 2 MG/ML VIAL IM PRN ×2 (19:15)
[2017-06-04] MEDS ORDERED: FLUMAZENIL 0.5 MG/5 ML VIAL IV PUSH PRN (19:15)
[2017-06-04] MEDS: QUEtiapine FUMARATE 25 MG TAB PO SCH (20:23)
[2017-06-05 05:21] VITALS: BP 127/75; PULSE 116; RESP 16; TEMP 98.2; O2SAT 93
[2017-06-05] MEDS: NICOTINE 21 MG/24 HR PATCH T-DERMAL SCH (08:22)
[2017-06-05] MEDS: QUEtiapine FUMARATE 25 MG TAB PO SCH ×2 (08:22→21:18)
[2017-06-05] MEDS ORDERED: HALOPERIDOL LACTATE 5 MG/ML AMP ONE (10:22)
[2017-06-05] MEDS ORDERED: HALOPERIDOL LACTATE 5 MG/ML AMP IM ONE (10:30)
[2017-06-05] MEDS ORDERED: LORazepam 2 MG/ML VIAL IM ONE (10:30)
[2017-06-05] MEDS ORDERED: LORazepam 2 MG TAB PO STA (12:09)
--- NOTE | 2017-06-05 12:30 | HHI.HP ---
Provisional Diagnosis Admission Date Jun 04, 2017 at 18:03 [place] I. Unspecified psychosis [place] II. Deferred Certification of Person's Competence To Provide Express and Informed Consent I have personally examined Yris Aleman , a person being served at [facility] on, Jun 05, 2017 12:21. Express and informed consent means consent voluntarily given in writing, by a competent person, after sufficient explanation and disclosure of the subject matter involved to enable the person to make a knowing and willful decision without any element of force, fraud, deceit, duress, or other form of constraint or coercion. This person is 18 years of age or older, is not now known to be incompetent to consent to treatment with a guardian advocate, and does not have a health care surrogate or proxy currently making medical treatment decisions. I have found this person to be one of the following: [] Competent to provide express and informed consent, as defined above, for voluntary admission to this facility and is competent to provide express and informed consent for treatment. He/she has the consistent capacity to make well reasoned, willful, and knowing decisions concerning his or her medical or mental health treatment. The person fully and consistently understands the purpose of the admission for examination/placement and is fully capable of personally exercising all rights assured under [place] [] Incompetent to provide express and informed consent to voluntary admission, and this is incompetent to provide express and informed consent to treatment. The person must be transferred to involuntary status and a petition for a guardian advocate filed with the Circuit Court. [X] Refusing to provide express and informed consent to voluntary admission but is competent to provide express and informed consent for treatment. The person must be discharged or transferred to involuntary status. Form shall be completed within 24 hours of a person's arrival at the receiving facility and filed in the clinical record of each person: 1. Admitted on a voluntary basis 2. Permitted to provide express and informed consent to his/her own treatment 3. Allowed to transfer from involuntary to voluntary status 4. Prior to permitting a person to consent to his or her own treatment after having been previously found incompetent to consent to treatment. History of Present Illness Capacity: Has Capacity HPI 05/29/2017The patient is a 56 years old woman, domiciled with friends in [facility], unemployed, single, with psychiatric history of anxiety, depression , 3 previous psychiatric hospitalizations, last hospitalization was about 20 years ago, no established outpatient care, no medications, no previous suicidal attempts, alcohol use disorder, she denies history of withdrawal, no detox or rehabilitation programs in the past, medical history of diabetes, hypertension, who came to the ER intoxicated with alcohol, BAL initially was 374, acute transaminitis, chest pain, metabolic encephalopathy. mild rhabdomyolysis with total CK elevated at 333. Consulted to psychiatry due to agitation, hostility, disorganized and aggressive behavior in the floor, visual hallucinations. As per nursing charge patient has been very difficult to handle the floor, she has been voicing, cursing, agitated, had to be restrained in order to protect the IV line. I also spoke with Dr. Mcdonough personally requested the patient is admitted in the med psych unit due to the difficulties managing her in the medical floor. On psychiatric evaluation today patient is found restrained in 2 points. Patient is superficially cooperative, guarded. She is tearful, stating that she is very anxious and depressed. However, patient doesn't elaborate about the reason of her depression remains guarded. 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 At this moment she does not seem to be delirious. However, she reports visual hallucinations "people passing around me and screaming at me". 06/04/2017 On psychiatric evaluation today patient continues to be disorganized, paranoid, very anxious and confused. Patient has been agitated and hostile in the ICU. I spoke with Dr. Mcdonough who suggested that patient should be transferred to the med psych unit for stabilization of psychosis and behavioral control. Patient will be [facility] acted to transfer to [facility] psych. 06/05/2017 Patient was seen today for psychiatric evaluation in the med psych unit. Patient says that she wants to go to see her daughter. She says that she doesn't understand what she has to be in assisted and incarcerated "you are bad people, you want to hurt me". Patient is very labile, irritable, with emotional incontinence. During evaluation patient become increasingly verbally hostile, agitated and even aggressive. She is started banging her head in the wall took her walker with her hands and tried to hit nurse in charge with it. She was not responsive to verbal de-escalation techniques. She has to be medicated with Haldol 5 mg IM, and Ativan 2 mg IM in order to calm her down. Review of Systems Constitutional: DENIES: Diaphoretic episodes, Fatigue, Fever, Weight gain, Weight loss, Chills, Dizziness, Change in appetite, Night Sweats Endocrine: DENIES: Abnorml menstrual pattern, Heat/cold intolerance, Polydipsia , Polyuria, Polyphagia Eyes: DENIES: Blurred vision, Diplopia, Eye inflammation, Eye pain, Vision loss , Photosensitivity, Double Vision Ears, nose, mouth, throat: DENIES: Tinnitus, Hearing loss, Vertigo, Nasal discharge, Oral lesions, Throat pain, Hoarseness, Ear Pain, Running Nose, Epistaxis, Sinus Pain, Toothache, Odynophagia Respiratory: DENIES: Apneas, Cough, Snoring, Wheezing, Hemoptysis, Sputum production, Shortness of breath Cardiovascular: DENIES: Chest pain, Palpitations, Syncope, Dyspnea on Exertion , PND, Lower Extremity Edema, Orthopnea, Claudication Genitourinary: DENIES: Abnormal vaginal bleeding, Dysmenorrhea, Dyspareunia, Sexual dysfunction, Urinary frequency, Urinary incontinence, Urgency, Hematuria , Dysuria, Nocturia, Vaginal discharge Musculoskeletal: DENIES: Joint pain, Muscle aches, Stiffness, Joint Swelling, Back pain, Neck pain Hematologic/lymphatic: DENIES: Bruising, Lymphadenopathy Immunologic/allergic: DENIES: Eczema, Urticaria Neurologic: DENIES: Abnormal gait, Headache, Localized weakness, Paresthesias, Seizures, Speech Problems, Tremor, Poor Balance Psychiatric: COMPLAINS OF: Mood changes, Agitation, Delusions, DENIES: Anxiety , Confusion, Depression, Hallucinations, Suicidal Ideation, Homicidal Ideation Past Psych History Violence risk - others (6 mos) Increased Violence risk - self (6 mos) Increased Substance Abuse History Drugs/Alcohol past 12 months Patient reports the use of alcohol, 4-6 beers per day. Past Family Social History Coded Allergies: No Known Allergies (Unverified , 05/27/17) Active Scripts Piperacillin-Tazobactam Inj (Zosyn Inj) 4.5 Gram Inj, 4.5 GM IV Q8H for Infection for 7 Days, BAG 0 Refills Prov:Juanpablo Patel MD 06/04/17 Pantoprazole (Pantoprazole) 40 Mg Tab, 40 MG PO DAILY for GI prophylaxis, #20 TAB Prov:Juanpablo Patel MD 06/04/17 Quetiapine (Quetiapine) 25 Mg Tab, 25 MG PO BID for Agitation, #20 TAB Prov:Juanpablo Patel MD 06/04/17 Current Medications Medications (Trade) Dose Ordered Sig/Jeremy Route Start Time Stop Time Status Last Admin (SEROquel) 25 mg BID PO 06/04/17 21:00 06/05/17 08:22 (Ativan) 1 mg Q6H PRN PO 06/04/17 19:15 (Ativan Inj) 1 mg Q6H PRN IM 06/04/17 19:15 (Ativan) 0.5 mg Q12H PRN PO 06/04/17 19:15 (Ativan Inj) 0.5 mg Q12H PRN IM 06/04/17 19:15 (Tylenol) 650 mg Q4H PRN PO 06/04/17 19:15 (Milk Of Magnesia Liq) 30 ml DAILY PRN PO 06/04/17 19:15 (Mag-Al Plus Susp Liq) 30 ml Q6H PRN PO 06/04/17 19:15 (Habitrol 21 Mg Patch.24 Hr) 1 patch DAILY T-DERMAL 06/04/17 19:15 (Romazicon Inj) 0.2 mg Q1M PRN IV PUSH 06/04/17 19:15 (Ativan) 1 mg Q4H PRN PO 06/04/17 19:15 (Ativan Inj) 1 mg Q4H PRN IV PUSH 06/04/17 19:15 06/05/17 00:55 (Ativan) 2 mg Q2H PRN PO 06/04/17 19:15 06/05/17 12:11 (Ativan Inj) 2 mg Q2H PRN IV PUSH 06/04/17 19:15 06/04/17 23:00 (Ativan Inj) 2 mg Q1H PRN IV PUSH 06/04/17 19:15 (Ativan Inj) 2 mg Q15M PRN IV PUSH 06/04/17 19:15 Family History Denies family psychiatric history Social History Patient was born and raised in [place], she lives with friends in [facility], unemployed, single, highest level of education is some college Patient's Strengths (min. 2) Verbal communication Physical Exam Vital Signs Vital Signs Date Time Temp Pulse Resp B/P (MAP) Pulse Ox O2 Delivery O2 Flow Rate FiO2 06/05/17 05:21 98.2 116 16 127/75 (92) 93 I/O 06/05/17 06/05/17 06/06/17 08:00 16:00 00:00 Intake Total 460 ml 480 ml Balance 460 ml 480 ml Mental Status Examination Appearance woman, disheveled, poor hygiene, irritable, poorly cooperative, agitated Speech: Rapid, Hesitant, Other (loud ) Orientation: x3 Memory: Unremarkable Thought Process: Linear, Loose Association, Tangential Thought Content: Paranoid Hallucination Type: None Attention and Concentration: Abnormal Suicidal Ideation: No Previous Suicide Attempts: No Homicidal Ideation: No Previous Homicide Attempts: No Judgment: Poor Affect: Irritable Mood: Angry Motor Activity: Normal gait Assessment & Plan Problem List: (1) Unspecified psychosis ICD Codes: F29 - Unspecified psychosis not due to a substance or known physiological condition Assessment & Plan: On psychiatric evaluation patient shows symptoms of acute psychosis, consisting in paranoia, disorganized behavior and thought, hostility , agitation and aggressive behavior. Patient had to be medicated with Haldol 5 mg and lorazepam 2 mg IM stat in order to calm her down. Patient will continue her psychiatric hospitalization for stabilization and safety. Will consult psychiatry for second opinion. Will consult Hospital person continue treatment of underlying medical conditions. Will increase Seroquel to 50 mg twice a day. Continue CIWA. Haldol 5 mg IM every 8 hours when necessary aggressive behavior and agitation. easement worker intervention for psychosocial assessment , to coordinate safe discharge plan, individual and group psychotherapy. Extensive support, motivation and psychoeducation provided. Assessment & Plan Estimated LOS: Fabio Vidales MD Jun 05, 2017 12:30
[2017-06-05 14:10] LABS: ANION GAP 8 MEQ/L (5-15); BICARBONATE 26.3 MEQ/L (21.0-32.0); BLOOD UREA NITROGEN 13 MG/DL (7-18); CHLORIDE 102 MEQ/L (98-107); GLOMERULAR FILTRATION RATE 57 ML/MIN (>89); POTASSIUM 3.7 MEQ/L (3.5-5.1); SODIUM (NA) 136 MEQ/L (136-145)
[2017-06-05 14:12] LABS: HDL CHOLESTEROL 129.2 MG/DL (40.0-60.0); LDL CHOLESTEROL 96 MG/DL (0-99)
[2017-06-05] MEDS: ACETAMINOPHEN 325 MG TAB PO PRN ×2 (15:11→21:24)
--- NOTE | 2017-06-05 15:14 | PD.PSY.CON ---
Provisional Diagnosis Admission Date Jun 04, 2017 at 18:03 [place] I. 1. Unspecified psychosis 2. History of alcohol use disorder [place] II. Deferred History of Present Illness Service Psychiatry Consult Requested By Dr. Nguyen Reason for Consult Second opinion for involuntary psychiatric hospitalization Primary Care Physician Unknown HPI From Dr. Nguyen's H&P: 05/29/2017The patient is a 56 years old woman, domiciled with friends in [facility], unemployed, single, with psychiatric history of anxiety, depression , 3 previous psychiatric hospitalizations, last hospitalization was about 20 years ago, no established outpatient care, no medications, no previous suicidal attempts, alcohol use disorder, she denies history of withdrawal, no detox or rehabilitation programs in the past, medical history of diabetes, hypertension, who came to the ER intoxicated with alcohol, BAL initially was 374, acute transaminitis, chest pain, metabolic encephalopathy. mild rhabdomyolysis with total CK elevated at 333. Consulted to psychiatry due to agitation, hostility, disorganized and aggressive behavior in the floor, visual hallucinations. As per nursing charge patient has been very difficult to handle the floor, she has been voicing, cursing, agitated, had to be restrained in order to protect the IV line. I also spoke with Dr. Mcdonough personally requested the patient is admitted in the med psych unit due to the difficulties managing her in the medical floor. On psychiatric evaluation today patient is found restrained in 2 points. Patient is superficially cooperative, guarded. She is tearful, stating that she is very anxious and depressed. However, patient doesn't elaborate about the reason of her depression remains guarded. 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 At this moment she does not seem to be delirious. However, she reports visual hallucinations "people passing around me and screaming at me". 06/04/2017 On psychiatric evaluation today patient continues to be disorganized, paranoid, very anxious and confused. Patient has been agitated and hostile in the ICU. I spoke with Dr. Mcdonough who suggested that patient should be transferred to the med psych unit for stabilization of psychosis and behavioral control. Patient will be [facility] acted to transfer to med psych. 06/05/2017 Patient was seen today for psychiatric evaluation in the med psych unit. Patient says that she wants to go to see her daughter. She says that she doesn't understand what she has to be in senior living and incarcerated "you are bad people, you want to hurt me". Patient is very labile, irritable, with emotional incontinence. During evaluation patient become increasingly verbally hostile, agitated and even aggressive. She is started banging her head in the wall took her walker with her hands and tried to hit nurse in charge with it. She was not responsive to verbal de-escalation techniques. She has to be medicated with Haldol 5 mg IM, and Ativan 2 mg IM in order to calm her down. On my examination today: Patient seen and examined with nurse. Chart reviewed. Case discussed with nursing staff. Nurse reports that the patient was quite agitated this morning and required medication with Haldol and Ativan. On my examination today, the patient is a little bit groggy as a result but is alert enough to participate in interview. She endorses subjective confusion for several months without any obvious trigger. She does say that her diet is fairly poor. No issues with mood reported. Affect is fairly flat. Denies any auditory hallucinations at this time. She does say that she is seeing "dust bunnies" on the floor, although I can see none. Denies any suicidal or homicidal ideation but seems unreliable to contract for safety. No delusions elicited at this time. Remainder of the psychiatric ROS is negative. Past psychiatric history: The patient endorses a history of bipolar illness. She is not currently under the care of a psychiatrist. She reports a history of psychiatric admission but says that it was "years" ago. Denies a history of suicide attempts. Family history: The patient is unsure of her family psychiatric history as she was adopted at 6 weeks. Chemical dependency history: The patient reports that she drinks 2 large high gravity beers daily. She denies any liquor or wine. She endorses a history of DTs and withdrawal seizures. She denies any other substance use. Social history: The patient is homeless but is staying on a friend's couch. She has a daughter. She has an associates degree. She is not presently working. Review of Systems ROS Limitations: Psychotic, Poor Historian Except as stated in HPI: all other systems reviewed are Neg Past Family Social History Coded Allergies: No Known Allergies (Unverified , 05/27/17) Past Medical History See electronic medical record Active Scripts Piperacillin-Tazobactam Inj (Zosyn Inj) 4.5 Gram Inj, 4.5 GM IV Q8H for Infection for 7 Days, BAG 0 Refills Prov:Juanpablo Patel MD 06/04/17 Pantoprazole (Pantoprazole) 40 Mg Tab, 40 MG PO DAILY for GI prophylaxis, #20 TAB Prov:Juanpablo Patel MD 06/04/17 Quetiapine (Quetiapine) 25 Mg Tab, 25 MG PO BID for Agitation, #20 TAB Prov:Juanpablo Patel MD 06/04/17 Current Medications Medications (Trade) Dose Ordered Sig/Jeremy Route Start Time Stop Time Status Last Admin (Ativan) 1 mg Q6H PRN PO 06/04/17 19:15 (Ativan Inj) 1 mg Q6H PRN IM 06/04/17 19:15 (Ativan) 0.5 mg Q12H PRN PO 06/04/17 19:15 (Ativan Inj) 0.5 mg Q12H PRN IM 06/04/17 19:15 (Tylenol) 650 mg Q4H PRN PO 06/04/17 19:15 06/05/17 15:11 (Milk Of Magnesia Liq) 30 ml DAILY PRN PO 06/04/17 19:15 (Mag-Al Plus Susp Liq) 30 ml Q6H PRN PO 06/04/17 19:15 (Habitrol 21 Mg Patch.24 Hr) 1 patch DAILY T-DERMAL 06/04/17 19:15 (Romazicon Inj) 0.2 mg Q1M PRN IV PUSH 06/04/17 19:15 (Ativan) 1 mg Q4H PRN PO 06/04/17 19:15 (Ativan Inj) 1 mg Q4H PRN IV PUSH 06/04/17 19:15 06/05/17 00:55 (Ativan) 2 mg Q2H PRN PO 06/04/17 19:15 (Ativan Inj) 2 mg Q2H PRN IV PUSH 06/04/17 19:15 06/04/17 23:00 (Ativan Inj) 2 mg Q1H PRN IV PUSH 06/04/17 19:15 (Ativan Inj) 2 mg Q15M PRN IV PUSH 06/04/17 19:15 (SEROquel) 50 mg BID PO 06/05/17 21:00 Patient's Strengths (min. 2) In a monitored setting. Verbally fluent. Physical Exam Physical exam completed by hospitalist prior to transfer to the medical psychiatric unit. On my examination today, the patient appears to be in no acute physical distress. No hand tremor, no tongue fasciculations noted. Mydriasis noted. Slow eye movements noted. Labs and vitals reviewed: Vital Signs Vital Signs Date Time Temp Pulse Resp B/P (MAP) Pulse Ox O2 Delivery O2 Flow Rate FiO2 06/05/17 05:21 98.2 116 16 127/75 (92) 93 I/O 06/05/17 06/05/17 06/06/17 08:00 16:00 00:00 Intake Total 460 ml 480 ml Balance 460 ml 480 ml Lab Results Item Value Date Time White Blood Count 7.0 TH/MM3 06/04/17 0528 Hemoglobin 11.5 GM/DL L 06/04/17 0528 Platelet Count 257 TH/MM3 06/04/17 0528 Sodium Level 136 MEQ/L 06/05/17 1323 Potassium Level 3.7 MEQ/L 06/05/17 1323 Chloride Level 102 MEQ/L 06/05/17 1323 Carbon Dioxide Level 26.3 MEQ/L 06/05/17 1323 Blood Urea Nitrogen 13 MG/DL 06/05/17 1323 Creatinine 1.01 MG/DL H 06/05/17 1323 Aspartate Amino Transf (AST/SGOT) 38 U/L H 06/04/17 0528 Alanine Aminotransferase (ALT/SGPT) 47 U/L 06/04/17 0528 Alkaline Phosphatase 64 U/L 06/04/17 0528 Thyroid Stimulating Hormone 3rd Gen 0.887 uIU/ML 05/28/178 Ammonia 22 MCMOL/L 05/27/17 1743 Urine Opiates Screen NEG 05/27/17 2230 Urine Barbiturates Screen NEG 05/27/17 2230 Urine Amphetamines Screen NEG 05/27/17 2230 Urine Benzodiazepines Screen NEG 05/27/17 223 Urine Cocaine Screen NEG 05/27/17 2230 Urine Cannabinoids Screen NEG 05/27/17 2230 Ethyl Alcohol Level LESS THAN 3 MG/DL 05/31/17 0507 Hepatitis A IgM Antibody NEGATIVE 8/30/17 2118 Hepatitis B Surface Antigen NEGATIVE 05/28/172117 Hepatitis B Core IgM Antibody NEGATIVE 05/28/172117 Hepatitis C Antibody REACTIVE H 05/28/172117 Mental Status Examination Registration 3 out of 3 and recall 2 out of 3 at 3 minutes. Oriented to person , place and date except she believes that it is the first of the month. She is able spell the word world forwards but not backwards. Motor exam as above. Appearance Somewhat disheveled. In hospital gown. Speech: Slow Orientation: Person, Place, Time Memory: Impaired (describe) (as above.) Thought Process: Linear Thought Content: Other (no delusions at this time but paranoia was apparently noted earlier) Language Unremarkable Fund of Knowledge Seems approximately average Hallucination Type: Visual ("dust bunnies") Attention and Concentration: Abnormal Suicidal Ideation: No Previous Suicide Attempts: No Homicidal Ideation: No Previous Homicide Attempts: No Insight: Poor Judgment: Poor Affect if Inappropriate: Flat Mood: Other (No issues) Assessment & Plan Problem List: (1) Unspecified psychosis ICD Codes: F29 - Unspecified psychosis not due to a substance or known physiological condition Assessment & Plan Given the circumstances of the patient's presentation here and her presentation on my examination today, I concur with Dr. Nguyen that the patient meets criteria for involuntary psychiatric hospitalization under the Kendrick act. I have completed the second opinion paperwork. Further care as per Dr. Nguyen. Thank you very much for this consultation. Signing off. Rodger Wren MD Jun 05, 2017 15:14
[2017-06-05 16:42] LABS: HEMOGLOBIN A1a 1.8 %; HEMOGLOBIN A1b 0.9 %; HEMOGLOBIN Ao 83.9 %; HEMOGLOBIN LA1C 2.1 %
--- NOTE | 2017-06-05 17:14 | PD.CONS ---
HPI Service [facility] Consult Requested By Dr galeano Reason for Consult Medical Management Primary Care Physician Unknown Diagnoses: History of Present Illness This is a 56-year-old female with past medical history significant for alcohol abuse, hepatitis C, seizures, hypothyroidism as per previous note supposed to be on methimazole but ran out off it about a month ago. The patient presented to the ER brought in by ambulance because she was found running naked in her apartment complex. The patient stated that she had not taking medications for seizure syncopal 4 PM the day before. The patient was asking for seizure medication and she had tremors. The patient was admitted to the hospital for alcohol withdrawal. The patient was initially in the general medical floor, however she required frequent Ativan administration despite the fact that she was getting Librium standing dose as well. The patient condition then deteriorated and she was transferred to the intensive care unit which she had to be started on Precedex. The patient remain on Precedex for several days until the delirium tremens improved. Once encephalopathy had improved and the patient was titrated off Precedex then the patient was discharged to the medical psychiatric unit. The patient denies any chest pain or shortness of breath, states that has severe anxiety and some tremors are noted. The RN taking care of the patient this morning states that she was very agitated throwing the walker against a wall and also banging her head against the wall.. The patient denies any headache, dizziness, or denies any other pain. Denies nausea, vomiting or abdominal pain, denies diarrhea. Review of Systems As per HPI other systems reviewed by me. Past Family Social History Allergies: Coded Allergies: No Known Allergies (Unverified , 05/27/17) Past Medical History gestational diabetes hepatitis C seizures hyperthytoidism- supposed to be on methimazole- run out of it about a month ago Past Surgical History none per patient Reported Medications Current Medications Medications (Trade) Dose Ordered Sig/Jeremy Route Start Time Stop Time Status Last Admin (Ativan) 1 mg Q6H PRN PO 06/04/17 19:15 (Ativan Inj) 1 mg Q6H PRN IM 06/04/17 19:15 (Ativan) 0.5 mg Q12H PRN PO 06/04/17 19:15 (Ativan Inj) 0.5 mg Q12H PRN IM 06/04/17 19:15 (Tylenol) 650 mg Q4H PRN PO 06/04/17 19:15 06/05/17 15:11 (Milk Of Magnesia Liq) 30 ml DAILY PRN PO 06/04/17 19:15 (Mag-Al Plus Susp Liq) 30 ml Q6H PRN PO 06/04/17 19:15 (Habitrol 21 Mg Patch.24 Hr) 1 patch DAILY T-DERMAL 06/04/17 19:15 (Romazicon Inj) 0.2 mg Q1M PRN IV PUSH 06/04/17 19:15 (Ativan) 1 mg Q4H PRN PO 06/04/17 19:15 (Ativan Inj) 1 mg Q4H PRN IV PUSH 06/04/17 19:15 06/05/17 00:55 (Ativan) 2 mg Q2H PRN PO 06/04/17 19:15 (Ativan Inj) 2 mg Q2H PRN IV PUSH 06/04/17 19:15 06/04/17 23:00 (Ativan Inj) 2 mg Q1H PRN IV PUSH 06/04/17 19:15 (Ativan Inj) 2 mg Q15M PRN IV PUSH 06/04/17 19:15 (SEROquel) 50 mg BID PO 06/05/17 21:00 Active Ordered Medications Current Medications Medications (Trade) Dose Ordered Sig/Jeremy Route Start Time Stop Time Status Last Admin (Ativan) 1 mg Q6H PRN PO 06/04/17 19:15 (Ativan Inj) 1 mg Q6H PRN IM 06/04/17 19:15 (Ativan) 0.5 mg Q12H PRN PO 06/04/17 19:15 (Ativan Inj) 0.5 mg Q12H PRN IM 06/04/17 19:15 (Tylenol) 650 mg Q4H PRN PO 06/04/17 19:15 06/05/17 15:11 (Milk Of Magnesia Liq) 30 ml DAILY PRN PO 06/04/17 19:15 (Mag-Al Plus Susp Liq) 30 ml Q6H PRN PO 06/04/17 19:15 (Habitrol 21 Mg Patch.24 Hr) 1 patch DAILY T-DERMAL 06/04/17 19:15 (Romazicon Inj) 0.2 mg Q1M PRN IV PUSH 06/04/17 19:15 (Ativan) 1 mg Q4H PRN PO 06/04/17 19:15 (Ativan Inj) 1 mg Q4H PRN IV PUSH 06/04/17 19:15 06/05/17 00:55 (Ativan) 2 mg Q2H PRN PO 06/04/17 19:15 (Ativan Inj) 2 mg Q2H PRN IV PUSH 06/04/17 19:15 06/04/17 23:00 (Ativan Inj) 2 mg Q1H PRN IV PUSH 06/04/17 19:15 (Ativan Inj) 2 mg Q15M PRN IV PUSH 06/04/17 19:15 (SEROquel) 50 mg BID PO 06/05/17 21:00 Family History adopted- does not know family hx Social History no smoking - quit 10yrs ago drinks etoh 6 beers a day no drugs from [facility], staying at someone's couch no longer driving Physical Exam Vital Signs Vital Signs Date Time Temp Pulse Resp B/P (MAP) Pulse Ox O2 Delivery O2 Flow Rate FiO2 06/05/17 15:47 18 06/05/17 05:21 98.2 116 16 127/75 (92) 93 Physical Exam GENERAL: This is a well-nourished, well-developed patient, in no apparent distress. SKIN: No rashes, ecchymoses or lesions. Cool and dry. HEAD: Atraumatic. Normocephalic. No temporal or scalp tenderness. EYES: Pupils equal round and reactive. Extraocular motions intact. No scleral icterus. No injection or drainage. ENT: Nose without bleeding, purulent drainage or septal hematoma. Throat without erythema, tonsillar hypertrophy or exudate. Uvula midline. Airway patent. NECK: Trachea midline. No JVD or lymphadenopathy. Supple, nontender, no meningeal signs. CARDIOVASCULAR: Regular rate and rhythm without murmurs, gallops, or rubs. RESPIRATORY: Clear to auscultation. Breath sounds equal bilaterally. No wheezes , rales, or rhonchi. GASTROINTESTINAL: Abdomen soft, non-tender, nondistended. No hepato-splenomegaly , or palpable masses. No guarding. MUSCULOSKELETAL: Extremities without clubbing, cyanosis, or edema. No joint tenderness, effusion, or edema noted. No calf tenderness. Negative Homans sign bilaterally. NEUROLOGICAL: Awake and alert. Cranial nerves II through XII intact. Motor and sensory grossly within normal limits. Five out of 5 muscle strength in all muscle groups. Normal speech. Laboratory Laboratory Tests Test 06/05/17 13:23 Blood Urea Nitrogen 13 Creatinine 1.01 Random Glucose 130 Calcium Level 9.6 Sodium Level 136 Potassium Level 3.7 Chloride Level 102 Carbon Dioxide Level 26.3 Anion Gap 8 Estimat Glomerular Filtration Rate 57 Hemoglobin A1c 6.0 Triglycerides Level 49 Cholesterol Level 235 LDL Cholesterol 96 HDL Cholesterol 129.2 Cholesterol/HDL Ratio 1.81 Result Diagram: 06/05/17 1323 Assessment and Plan Assessment and Plan (1) Encephalopathy acute Plan: Encephalopathy likely multifactorial and related to alcohol intoxication , severe hyponatremia and possible seizure episode. CT scan was normal. Ammonia was checked and within normal range. Continue to monitor neuro status. Patient still confused and agitated earlier today. (2) Transaminitis Plan: h/o hep C. On previous admission hep c antibody reactive. Fu as an outpatient. Not a candidate for treatment due to concurrent alcohol use. (3) Seizure disorder Plan: Patient reportedly has seizure disorder and has been noncompliant with medications. Patient currently is not on any anticonvulsants and has not had seizures. 05/30 EEG showed overall normal appearing EEG. Some beta with frequency seen at times possible due to medicine effects such as benzodiazepines. No epileptic form features reported. (4) Hyperglycemia/ prediabetes Plan: Will start patient on metformin since hemoglobin a1c is 6.4. Monitor accuchecks and cover with SSI with insulin novolog. GI prophylaxis: PPI. DVT plexus: Early ambulation Code Status Full code Discussed Condition With Juanpablo Rubio MD Jun 05, 2017 17:14
[2017-06-05 18:14] VITALS: BP 133/76; PULSE 114; RESP 16; TEMP 98; O2SAT 95
[2017-06-06 03:20] VITALS: BP 103/62; PULSE 90; RESP 14; O2SAT 97
[2017-06-06] MEDS: ACETAMINOPHEN 325 MG TAB PO PRN (06:25)
[2017-06-06] MEDS: NICOTINE 21 MG/24 HR PATCH T-DERMAL SCH (08:17)
[2017-06-06] MEDS: QUEtiapine FUMARATE 25 MG TAB PO SCH (08:17)
[2017-06-06] MEDS ORDERED: QUET1TAB7 PO (09:59)
--- NOTE | 2017-06-06 10:06 | HHI.DS ---
Psychiatry Discharge Summary Inpatient Psychiatric care?: Yes Advance Directive: No Reason Not Provided: does not have one Mental Health AdvanceDirective: No Health Care Proxy: No Admission Admission Date Jun 04, 2017 at 18:03 Admission Diagnosis: (1) Unspecified psychosis ICD Code: F29 - Unspecified psychosis not due to a substance or known physiological condition Brief History From Dr. Nguyen's H&P: 05/29/2017The patient is a 56 years old woman, domiciled with friends in [facility], unemployed, single, with psychiatric history of anxiety, depression , 3 previous psychiatric hospitalizations, last hospitalization was about 20 years ago, no established outpatient care, no medications, no previous suicidal attempts, alcohol use disorder, she denies history of withdrawal, no detox or rehabilitation programs in the past, medical history of diabetes, hypertension, who came to the ER intoxicated with alcohol, BAL initially was 374, acute transaminitis, chest pain, metabolic encephalopathy. mild rhabdomyolysis with total CK elevated at 333. Consulted to psychiatry due to agitation, hostility, disorganized and aggressive behavior in the floor, visual hallucinations. As per nursing charge patient has been very difficult to handle the floor, she has been voicing, cursing, agitated, had to be restrained in order to protect the IV line. I also spoke with Dr. Mcdonough personally requested the patient is admitted in the med psych unit due to the difficulties managing her in the medical floor. On psychiatric evaluation today patient is found restrained in 2 points. Patient is superficially cooperative, guarded. She is tearful, stating that she is very anxious and depressed. However, patient doesn't elaborate about the reason of her depression remains guarded. 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 At this moment she does not seem to be delirious. However, she reports visual hallucinations "people passing around me and screaming at me". 06/04/2017 On psychiatric evaluation today patient continues to be disorganized, paranoid, very anxious and confused. Patient has been agitated and hostile in the ICU. I spoke with Dr. Mcdonough who suggested that patient should be transferred to the med psych unit for stabilization of psychosis and behavioral control. Patient will be Kendrick acted to transfer to med psych. 06/05/2017 Patient was seen today for psychiatric evaluation in the med psych unit. Patient says that she wants to go to see her daughter. She says that she doesn't understand what she has to be in half-way and incarcerated "you are bad people, you want to hurt me". Patient is very labile, irritable, with emotional incontinence. During evaluation patient become increasingly verbally hostile, agitated and even aggressive. She is started banging her head in the wall took her walker with her hands and tried to hit nurse in charge with it. She was not responsive to verbal de-escalation techniques. She has to be medicated with Haldol 5 mg IM, and Ativan 2 mg IM in order to calm her down. On my examination today: Patient seen and examined with nurse. Chart reviewed. Case discussed with nursing staff. Nurse reports that the patient was quite agitated this morning and required medication with Haldol and Ativan. On my examination today, the patient is a little bit groggy as a result but is alert enough to participate in interview. She endorses subjective confusion for several months without any obvious trigger. She does say that her diet is fairly poor. No issues with mood reported. Affect is fairly flat. Denies any auditory hallucinations at this time. She does say that she is seeing "dust bunnies" on the floor, although I can see none. Denies any suicidal or homicidal ideation but seems unreliable to contract for safety. No delusions elicited at this time. Remainder of the psychiatric ROS is negative. Past psychiatric history: The patient endorses a history of bipolar illness. She is not currently under the care of a psychiatrist. She reports a history of psychiatric admission but says that it was "years" ago. Denies a history of suicide attempts. Family history: The patient is unsure of her family psychiatric history as she was adopted at 6 weeks. Chemical dependency history: The patient reports that she drinks 2 large high gravity beers daily. She denies any liquor or wine. She endorses a history of DTs and withdrawal seizures. She denies any other substance use. Social history: The patient is homeless but is staying on a friend's couch. She has a daughter. She has an associates degree. She is not presently working. Tobacco Use In Past 30 Days: No Tobacco Past 30 Days Alcohol Use: 4 or More Times Per Week Hospital Course Patient was admitted in the med psych unit due to acute psychosis. Immediate safety measure were taken. Psychiatric and psychosocial assessment done. Patient had visual hallucinations, increased paranoia and disorganized and aggressive behavior. Was restarted in Seroquel 25 mg twice a day, she showed a good response to this psychotropic regimen. She also participated in individual and group therapies and activities. During her stay in the hospital she was compliant with medications. Symmetrical side effects reported. She had some episodes of agitation and aggressive behavior in the unit needing Haldol 5 milligrams IM and Ativan IM to help her to calm down. At the moment of the discharge patient is a baseline, denies depressive symptoms, denies anxiety, no psychosis present, signs of anxiety ideation. He was widely educated about the importance of avoiding alcohol and other drugs. Patient was discharged with referral to rehabilitation program in a [facility]. Results Blood Pressure 103 / 62 Vital Signs Date Time Temp Pulse Resp B/P (MAP) Pulse Ox O2 Delivery O2 Flow Rate FiO2 06/06/17 03:20 90 14 103/62 (76) 97 06/05/17 18:14 98.0 Laboratory Tests Test 06/05/17 13:23 Creatinine 1.01 MG/DL (0.50-1.00) Random Glucose 130 MG/DL (74-106) Estimat Glomerular Filtration Rate 57 ML/MIN (>89) Cholesterol Level 235 MG/DL (120-200) HDL Cholesterol 129.2 MG/DL (40.0-60.0) Laboratory Results Test 06/05/17 13:23 Cholesterol Level 235 MG/DL (120-200) HDL Cholesterol 129.2 MG/DL (40.0-60.0) Hemoglobin A1c 6.0 % (4.3-6.0) LDL Cholesterol 96 MG/DL (0-99) Triglycerides Level 49 MG/DL (42-150) Summary of Procedures No procedures done Pending results at discharge: No Medications # of Antipsychotic meds at D/C: 1 Approp Antipsych med options 1 - Minimum of three failed multiple trials of monotherapy. 2 - Documented plan to taper to monotherapy due to previous use of multiple meds OR cross-taper in progress at D/C. 3 - Documentation of augmentation of Clozapine. 4 - Justification other than those listed in allowable values 1-3, document here : Discharge Discharge Date: Jun 06, 2017 Discharge Diagnosis: (1) Unspecified psychosis ICD Code: F29 - Unspecified psychosis not due to a substance or known physiological condition Mental Status Exam at Disch woman, age appearing, [facility], she is calm, cooperative a little bit irritable. Her speech is slow and low volume. Her mood is "I'm fine ", affect is irritable. Thought process is logical, coherent and relevant, goal directed. Thought content is devoid of suicidal ideation, homicidal ideation, visual and auditory hallucinations. Insight, impulse control, judgment are fair. Cognition is intact. Pt Condition on Discharge: Stable Discharge Disposition: Discharge Home Discharge Instructions Diet Instructions: As Tolerated, No Restrictions Activities you can perform: Weight Bearing as Miguel Scheduled Appointment: Krishna Mueller Act Appointment Date: Jun 11, 2017 Appointment Time: 7:30 am Discharge Time > 30 minutes Discharge/Advance Care Plan Health Problems: (1) Unspecified psychosis Goals to promote your health * To prevent worsening of your condition and complications * To maintain your health at the optimal level Directions to meet your goals Take your medications as prescribed Follow your dietary instruction Follow activity as directed Keep your appointments as scheduled Take your immunizations and boosters as scheduled If your symptoms worsen call your PCP, if no PCP go to Urgent Care Center or Emergency Room For 21/04 questions related to your inpatient stay or results of tests pending at discharge, please contact Dr. Fabio Nguyen at Smoking is Dangerous to Your Health. Avoid second hand smoking Fabio Nguyen MD Jun 06, 2017 10:06
[2017-06-06] MEDS ORDERED: metFORMIN HCL 500 MG TAB PO SCH (10:45)
[2017-06-06] MEDS ORDERED: AUGM875T3 PO (10:45)
[2017-06-06] MEDS ORDERED: METF500T PO (10:45)
--- NOTE | 2017-06-06 11:20 | HHI.PR ---
Subjective Remarks As per RN patient is much improved, not agressivve or with self injurious behavior patient states she feels some anxiety denies cp/sob denies fevers/chills Denies hallucinations Objective Vitals Vital Signs Date Time Temp Pulse Resp B/P (MAP) Pulse Ox O2 Delivery O2 Flow Rate FiO2 06/06/17 03:20 90 14 103/62 (76) 97 06/05/17 22:24 18 06/05/17 18:14 98.0 114 16 133/76 (95) 95 I/O 06/05/17 06/05/17 06/05/17 06/06/17 06/06/17 06/06/17 06:59 14:59 22:59 06:59 14:59 22:59 Intake Total 460 ml 480 ml 480 ml 240 ml 480 ml Balance 460 ml 480 ml 480 ml 240 ml 480 ml Intake Oral 460 ml 480 ml 480 ml 240 ml 480 ml # Voids 3 3 2 2 Result Diagram: 06/05/17 1323 Objective Remarks AAOx3 NAD Clear lungs BL, no wheezing or rhonchi CN II - XII grossly intact, m strength 5/5 all extremities abdomen soft, NT, ND, Bowel sounds present. no edema in lower extremities no tremors observed Medications and IVs Current Medications Medications (Trade) Dose Ordered Sig/Jeremy Route Start Time Stop Time Status Last Admin (Ativan) 1 mg Q6H PRN PO 06/04/17 19:15 06/05/17 21:23 (Ativan Inj) 1 mg Q6H PRN IM 06/04/17 19:15 (Ativan) 0.5 mg Q12H PRN PO 06/04/17 19:15 (Ativan Inj) 0.5 mg Q12H PRN IM 06/04/17 19:15 (Tylenol) 650 mg Q4H PRN PO 06/04/17 19:15 06/06/17 06:25 (Milk Of Magnesia Liq) 30 ml DAILY PRN PO 06/04/17 19:15 (Mag-Al Plus Susp Liq) 30 ml Q6H PRN PO 06/04/17 19:15 (Habitrol 21 Mg Patch.24 Hr) 1 patch DAILY T-DERMAL 06/04/17 19:15 (Romazicon Inj) 0.2 mg Q1M PRN IV PUSH 06/04/17 19:15 (Ativan) 1 mg Q4H PRN PO 06/04/17 19:15 (Ativan Inj) 1 mg Q4H PRN IV PUSH 06/04/17 19:15 06/05/17 00:55 (Ativan) 2 mg Q2H PRN PO 06/04/17 19:15 (Ativan Inj) 2 mg Q2H PRN IV PUSH 06/04/17 19:15 06/04/17 23:00 (Ativan Inj) 2 mg Q1H PRN IV PUSH 06/04/17 19:15 (Ativan Inj) 2 mg Q15M PRN IV PUSH 06/04/17 19:15 (SEROquel) 50 mg BID PO 06/05/17 21:00 06/06/17 08:17 (Glucophage) 500 mg BIDPC PO 06/06/17 10:45 A/P Assessment and Plan (1) Encephalopathy acute/etoh withdrawal Plan: Encephalopathy likely multifactorial and related to alcohol intoxication , severe hyponatremia and possible seizure episode. CT scan was normal. Ammonia was checked and within normal range. 06/06 Clear to DC from medical standpoint. Encephalopathy and etoh withdrawal resolved. (2) Transaminitis Plan: h/o hep C. On previous admission hep c antibody reactive. Fu as an outpatient. Not a candidate for treatment due to concurrent alcohol use. (3) Seizure disorder Plan: Patient reportedly has seizure disorder and has been noncompliant with medications. Patient currently is not on any anticonvulsants and has not had seizures. 05/30 EEG showed overall normal appearing EEG. Some beta with frequency seen at times possible due to medicine effects such as benzodiazepines. No epileptic form features reported. 06/06 Likely previous seizures are related to alcohol withdrawal. Advised alcohol abstinence. Will not discharge on anticonvulsants. (4) Hyperglycemia/ prediabetes Plan: Will start patient on metformin since hemoglobin a1c is 6.4. Monitor accuchecks and cover with SSI with insulin novolog. GI prophylaxis: PPI. DVT plexus: Early ambulation Juanpablo Patel MD Jun 06, 2017 11:20
== END 2017-06-06 13:15 | disposition home or self-care (01) | DRG 896 ==
LOC: H4EA 18:03 → HCPC 06-06 08:06 → H4EA 06-06 08:12
PROVIDERS: ADMIT Psychiatry & Neurology Psychiatry; ATTEND Psychiatry & Neurology Psychiatry
DX: F10.239 Alcohol dependence with withdrawal, unspecified (principal); G93.40 Encephalopathy, unspecified; E87.1 Hypo-osmolality and hyponatremia; G40.89 Other seizures; F41.9 Anxiety disorder, unspecified; F32.9 Major depressive disorder, single episode, unspecified; B19.20 Unspecified viral hepatitis C without hepatic coma; E03.9 Hypothyroidism, unspecified; F10.229 Alcohol dependence with intoxication, unspecified; Y90.8 Blood alcohol level of 240 mg/100 ml or more; Z91.14 Patient's other noncompliance with medication regimen
CPT/HCPCS: 80048; 80061; 83036; J1630; J2060

== ENCOUNTER 2017-06-11 14:59 | Emergency (ER) | payer SELFPAY ==
[~2017-06-11] VITALS: Ht 157.5 cm; Wt 51.0 kg
[~2017-06-11 14:59] MED LIST changes: +AUGM875T3 PO; +METF500T PO
[2017-06-11 15:11] VITALS: BP 121/75; PULSE 103; RESP 13; TEMP 98.8; O2SAT 97
[2017-06-11] MEDS ORDERED: ERGO2000 PO (16:17)
[2017-06-11] MEDS ORDERED: METH5TAB4 PO (16:17)
[2017-06-11 16:18] LABS: AUTOMATED NEUTROPHIL # 5.8 TH/MM3 (1.8-7.7); BASOPHIL # 0.1 TH/MM3 (0-0.2); BASOPHIL % 0.9 % (0.0-2.0); EOSINOPHIL # 0.1 TH/MM3 (0-0.4); EOSINOPHIL % 1.3 % (0.0-4.0); HEMATOCRIT 29.2 % (35.0-46.0); HEMO FLAGS DIFF FINAL; LYMPH % 32.5 % (9.0-44.0); LYMPHOCYTE # 3.2 TH/MM3 (1.0-4.8); MEAN CELL VOLUME 94.6 FL (80.0-100.0); MEAN CORPUSCULAR HEMOGLOBIN 31.4 PG (27.0-34.0); MEAN CORPUSCULAR HGB CONC 33.2 % (32.0-36.0); MONO % 6.6 % (0.0-8.0); NEUT % 58.7 % (16.0-70.0); PLATELET COUNT 373 TH/MM3 (150-450); RED BLOOD COUNT 3.09 MIL/MM3 (4.00-5.30); RED CELL DISTRIBUTION WIDTH 14.7 % (11.6-17.2); WHITE BLOOD COUNT 9.8 TH/MM3 (4.0-11.0)
--- NOTE | 2017-06-11 16:20 | PD ---
HPI Chief Complaint: Psychiatric Symptoms Time Seen by Provider: 16:07 Travel History International Travel<30 days: No Contact w/Intl Traveler<30days: No Traveled to known affect area: No History of Present Illness HPI 56-year-old female with history of bipolar disorder, presents to emergency department voluntarily for psychiatric evaluation. Patient is very difficult to follow during our conversation. She is tearful. She recently was admitted to the psychiatric unit for for acute psychosis, likely due to encephalopathy secondary to alcohol use. Patient was aggressive and agitated during that visit. She was discharged to follow-up with psychiatry the patient states she has not. Patient denies taking any medication. Denies any illicit drug use. Denies suicidal or homicidal ideations. She has no other symptoms to report. PFSH Past Medical History Cancer: No Cardiovascular Problems: No High Cholesterol: Yes Diabetes: Yes Patient Takes Glucophage: Yes Diminished Hearing: No Endocrine: No Genitourinary: Yes Immune Disorder: No Musculoskeletal: No Neurologic: Yes Psychiatric: Yes Reproductive: No Respiratory: No Menopausal: Yes : 2 Para: 2 Past Surgical History Abdominal Surgery: Yes (choly) Cardiac Surgery: No Section: Yes (X 2) Cholecystectomy: Yes Ear Surgery: No Endocrine Surgery: No Eye Surgery: No Genitourinary Surgery: No Gynecologic Surgery: Yes (c section X2) Thoracic Surgery: No Other Surgery: Yes Social History Alcohol Use: No Tobacco Use: No Substance Use: No Allergies-Medications (Allergen,Severity, Reaction): Coded Allergies: No Known Allergies (Unverified , 06/11/17) Reported Meds & Prescriptions Reported Meds & Active Scripts Active Metformin (Metformin HCl) 500 Mg Tab 500 Mg PO BIDPC With meals Augmentin (Amoxicillin-Clavulanate) 875-125 Mg Tab 1 Tab PO BID Reported Methimazole 5 Mg Tab 5 Mg PO DAILY Vitamin D2 (Ergocalciferol) 2,000 Unit Tab 50,000 Units PO DAILY Review of Systems ROS Limitations: Uncooperative, Psychotic Except as stated in HPI: all other systems reviewed are Neg Physical Exam Exam Limitations: Uncooperative, Psychotic Narrative GENERAL: Unkempt female patient, ambulatory and in no acute distress SKIN: Focused skin assessment warm/dry. Multiple ecchymosis markings on the anterior aspect the bilateral extremities. HEAD: Atraumatic. Normocephalic. EYES: Pupils equal and round. No scleral icterus. No injection or drainage. ENT: No nasal bleeding or discharge. Mucous membranes pink and moist. NECK: Trachea midline. No JVD. CARDIOVASCULAR: Tachycardic rate and rhythm. No murmur appreciated. RESPIRATORY: No accessory muscle use. Clear to auscultation. Breath sounds equal bilaterally. GASTROINTESTINAL: Abdomen soft, non-tender, nondistended. Hepatic and splenic margins not palpable. MUSCULOSKELETAL: No obvious deformities. No clubbing. No cyanosis. No edema. NEUROLOGICAL: Awake and alert. No obvious cranial nerve deficits. Motor grossly within normal limits. Normal speech. Data Data Last Documented VS Vital Signs Date Time Temp Pulse Resp B/P (MAP) Pulse Ox O2 Delivery O2 Flow Rate FiO2 06/11/17 21:25 111 24 112/61 (78) 98 Room Air 06/11/17 15:11 98.8 Orders Orders Complete Blood Count With Diff (06/11/17 15:36) Comprehensive Metabolic Panel (06/11/17 15:36) Psych Screen (06/11/17 15:36) Salicylates (Aspirin) (06/11/17 15:36) Diet Regular Basic (06/11/17 Dinner) Urinalysis - C+S If Indicated (06/11/17 16:49) Drug Screen, Random Urine (06/11/17 16:49) Alcohol (Ethanol) (06/11/17 17:09) Lorazepam Inj (Ativan Inj) (06/11/17 21:30) Labs Laboratory Tests Test 06/11/17 15:30 06/11/17 16:53 White Blood Count 9.8 TH/MM3 Red Blood Count 3.09 MIL/MM3 Hemoglobin 9.7 GM/DL Hematocrit 29.2 % Mean Corpuscular Volume 94.6 FL Mean Corpuscular Hemoglobin 31.4 PG Mean Corpuscular Hemoglobin Concent 33.2 % Red Cell Distribution Width 14.7 % Platelet Count 373 TH/MM3 Mean Platelet Volume 7.8 FL Neutrophils (%) (Auto) 58.7 % Lymphocytes (%) (Auto) 32.5 % Monocytes (%) (Auto) 6.6 % Eosinophils (%) (Auto) 1.3 % Basophils (%) (Auto) 0.9 % Neutrophils # (Auto) 5.8 TH/MM3 Lymphocytes # (Auto) 3.2 TH/MM3 Monocytes # (Auto) 0.6 TH/MM3 Eosinophils # (Auto) 0.1 TH/MM3 Basophils # (Auto) 0.1 TH/MM3 CBC Comment DIFF FINAL Differential Comment Blood Urea Nitrogen 13 MG/DL Creatinine 0.76 MG/DL Random Glucose 87 MG/DL Total Protein 7.0 GM/DL Albumin 3.4 GM/DL Calcium Level 7.8 MG/DL Alkaline Phosphatase 63 U/L Aspartate Amino Transf (AST/SGOT) 25 U/L Alanine Aminotransferase (ALT/SGPT) 27 U/L Total Bilirubin 0.1 MG/DL Sodium Level 135 MEQ/L Potassium Level 4.1 MEQ/L Chloride Level 102 MEQ/L Carbon Dioxide Level 23.6 MEQ/L Anion Gap 9 MEQ/L Estimat Glomerular Filtration Rate 79 ML/MIN Salicylates Level 2.8 MG/DL Ethyl Alcohol Level 246 MG/DL Urine Color STRAW Urine Turbidity CLEAR Urine pH 6.5 Urine Specific [place] 1.004 Urine Protein NEG mg/dL Urine Glucose (UA) NEG mg/dL Urine Ketones NEG mg/dL Urine Occult Blood NEG Urine Nitrite NEG Urine Bilirubin NEG Urine Urobilinogen LESS THAN 2.0 MG/DL Urine Leukocyte Esterase NEG Urine WBC LESS THAN 1 /hpf Urine Squamous Epithelial Cells <1 /hpf Microscopic Urinalysis Comment CULT NOT INDICATED Urine Opiates Screen NEG Urine Barbiturates Screen NEG Urine Amphetamines Screen NEG Urine Benzodiazepines Screen POS Urine Cocaine Screen NEG Urine Cannabinoids Screen NEG MDM Medical Decision Making Medical Screen Exam Complete: Yes Emergency Medical Condition: Yes Medical Record Reviewed: Yes Differential Diagnosis Mood disorder versus personality disorder versus adjustment reaction disorder Narrative Course 56 year-old female presents to emergency department voluntarily for psychiatric evaluation. Patient is difficult to interact with and carry on a conversation. She is tachycardic. She is slightly agitated but cooperative overall. Laboratory Tests Test 06/11/17 15:30 06/11/17 16:53 White Blood Count 9.8 TH/MM3 Red Blood Count 3.09 MIL/MM3 Hemoglobin 9.7 GM/DL Hematocrit 29.2 % Mean Corpuscular Volume 94.6 FL Mean Corpuscular Hemoglobin 31.4 PG Mean Corpuscular Hemoglobin Concent 33.2 % Red Cell Distribution Width 14.7 % Platelet Count 373 TH/MM3 Mean Platelet Volume 7.8 FL Neutrophils (%) (Auto) 58.7 % Lymphocytes (%) (Auto) 32.5 % Monocytes (%) (Auto) 6.6 % Eosinophils (%) (Auto) 1.3 % Basophils (%) (Auto) 0.9 % Neutrophils # (Auto) 5.8 TH/MM3 Lymphocytes # (Auto) 3.2 TH/MM3 Monocytes # (Auto) 0.6 TH/MM3 Eosinophils # (Auto) 0.1 TH/MM3 Basophils # (Auto) 0.1 TH/MM3 CBC Comment DIFF FINAL Differential Comment Blood Urea Nitrogen 13 MG/DL Creatinine 0.76 MG/DL Random Glucose 87 MG/DL Total Protein 7.0 GM/DL Albumin 3.4 GM/DL Calcium Level 7.8 MG/DL Alkaline Phosphatase 63 U/L Aspartate Amino Transf (AST/SGOT) 25 U/L Alanine Aminotransferase (ALT/SGPT) 27 U/L Total Bilirubin 0.1 MG/DL Sodium Level 135 MEQ/L Potassium Level 4.1 MEQ/L Chloride Level 102 MEQ/L Carbon Dioxide Level 23.6 MEQ/L Anion Gap 9 MEQ/L Estimat Glomerular Filtration Rate 79 ML/MIN Salicylates Level 2.8 MG/DL Ethyl Alcohol Level 246 MG/DL Urine Color STRAW Urine Turbidity CLEAR Urine pH 6.5 Urine Specific [place] 1.004 Urine Protein NEG mg/dL Urine Glucose (UA) NEG mg/dL Urine Ketones NEG mg/dL Urine Occult Blood NEG Urine Nitrite NEG Urine Bilirubin NEG Urine Urobilinogen LESS THAN 2.0 MG/DL Urine Leukocyte Esterase NEG Urine WBC LESS THAN 1 /hpf Urine Squamous Epithelial Cells <1 /hpf Microscopic Urinalysis Comment CULT NOT INDICATED Urine Opiates Screen NEG Urine Barbiturates Screen NEG Urine Amphetamines Screen NEG Urine Benzodiazepines Screen POS Urine Cocaine Screen NEG Urine Cannabinoids Screen NEG Patient is medically cleared to undergo psychiatric screening for further evaluation and disposition. Mental health screening discussed with the patient. Psychiatric screen ordered. Diagnosis Primary Impression: Unspecified psychosis Condition: Stable CristinaLissette MENDOZA Jun 11, 2017 16:20
[2017-06-11 16:41] LABS: ANION GAP 9 MEQ/L (5-15); AST (GOT) 25 U/L (15-37); BICARBONATE 23.6 MEQ/L (21.0-32.0); BLOOD UREA NITROGEN 13 MG/DL (7-18); CHLORIDE 102 MEQ/L (98-107); GLOMERULAR FILTRATION RATE 79 ML/MIN (>89); POTASSIUM 4.1 MEQ/L (3.5-5.1); SODIUM (NA) 135 MEQ/L (136-145)
[2017-06-11 16:45] LABS: ALKALINE PHOSPHATASE 63 U/L (45-117); ALT (GPT) 27 U/L (10-53); TOTAL BILIRUBIN ADULT 0.1 MG/DL (0.2-1.0)
[2017-06-11 17:19] LABS: BLOOD, URINE NEG (NEG); COMMENT (UR) CULT NOT INDICATED; CULTURE IF INDICATED CULT NOT INDICATED; GLUCOSE,URINE NEG (NEG); KETONE, URINE NEG (NEG); NITRITE,URINE NEG (NEG); PH, URINE 6.5 (5.0-8.5); SQUAMOUS EPITHELIAL CELL URINE <1 /hpf (0-5)
[2017-06-11 17:21] LABS: URINE COLOR STRAW (YELLW/STRAW)
[2017-06-11 19:19] VITALS: BP 129/64; PULSE 99; RESP 18; O2SAT 94
[2017-06-11 21:25] VITALS: BP 112/61; PULSE 111; RESP 24; O2SAT 98
[2017-06-11] MEDS ORDERED: LORazepam 2 MG/ML VIAL IM ONE (21:30)
[2017-06-12 02:20] VITALS: BP 121/70; PULSE 100; RESP 18; O2SAT 97
[2017-06-12] MEDS ORDERED: ALUMINUM/MAGNESIUM/SIMETH 30 ML CUP PO ONE (03:15)
[2017-06-12] MEDS ORDERED: LORazepam 2 MG TAB PO PRN (03:30)
[2017-06-12] MEDS ORDERED: LORazepam 2 MG/ML VIAL IV PUSH PRN ×4 (03:30)
[2017-06-12] MEDS ORDERED: FLUMAZENIL 0.5 MG/5 ML VIAL IV PUSH PRN (03:30)
[2017-06-12] MEDS ORDERED: LORazepam 1 MG TAB PO PRN (03:30)
[2017-06-12 06:29] VITALS: BP 128/72; PULSE 92; RESP 18; O2SAT 97
--- NOTE | 2017-06-12 08:54 | PD ---
Physical Exam Narrative Patient initially came in intoxicated requesting psychiatric evaluation. Patient is now sober and requesting to be discharged to be able to follow up as an outpatient. Patient denies any suicidal or homicidal ideations. Denies any medical concerns at this time. Data Data Last Documented VS Vital Signs Date Time Temp Pulse Resp B/P (MAP) Pulse Ox O2 Delivery O2 Flow Rate FiO2 06/12/17 06:29 92 18 128/72 (90) 97 Room Air 06/11/17 15:11 98.8 Orders Orders Complete Blood Count With Diff (06/11/17 15:36) Comprehensive Metabolic Panel (06/11/17 15:36) Psych Screen (06/11/17 15:36) Salicylates (Aspirin) (06/11/17 15:36) Diet Regular Basic (06/11/17 Dinner) Urinalysis - C+S If Indicated (06/11/17 16:49) Drug Screen, Random Urine (06/11/17 16:49) Alcohol (Ethanol) (06/11/17 17:09) Lorazepam Inj (Ativan Inj) (06/11/17 21:30) Al-Mag Hy-Si 40-40-4 Mg/Ml Liq (Mag-Al P (06/12/17 03:15) Alcohol Withdrawal Asmt-Ciwa ONCE (06/12/17 03:16) Flumazenil Inj (Romazicon Inj) (06/12/17 03:30) Lorazepam (Ativan) (06/12/17 03:30) Lorazepam Inj (Ativan Inj) (06/12/17 03:30) Lorazepam (Ativan) (06/12/17 03:30) Lorazepam Inj (Ativan Inj) (06/12/17 03:30) Lorazepam Inj (Ativan Inj) (06/12/17 03:30) Lorazepam Inj (Ativan Inj) (06/12/17 03:30) Diet Regular Basic (06/12/17 Breakfast) Electrocardiogram (06/12/17 ) Labs Laboratory Tests Test 06/11/17 15:30 06/11/17 16:53 White Blood Count 9.8 TH/MM3 Red Blood Count 3.09 MIL/MM3 Hemoglobin 9.7 GM/DL Hematocrit 29.2 % Mean Corpuscular Volume 94.6 FL Mean Corpuscular Hemoglobin 31.4 PG Mean Corpuscular Hemoglobin Concent 33.2 % Red Cell Distribution Width 14.7 % Platelet Count 373 TH/MM3 Mean Platelet Volume 7.8 FL Neutrophils (%) (Auto) 58.7 % Lymphocytes (%) (Auto) 32.5 % Monocytes (%) (Auto) 6.6 % Eosinophils (%) (Auto) 1.3 % Basophils (%) (Auto) 0.9 % Neutrophils # (Auto) 5.8 TH/MM3 Lymphocytes # (Auto) 3.2 TH/MM3 Monocytes # (Auto) 0.6 TH/MM3 Eosinophils # (Auto) 0.1 TH/MM3 Basophils # (Auto) 0.1 TH/MM3 CBC Comment DIFF FINAL Differential Comment Blood Urea Nitrogen 13 MG/DL Creatinine 0.76 MG/DL Random Glucose 87 MG/DL Total Protein 7.0 GM/DL Albumin 3.4 GM/DL Calcium Level 7.8 MG/DL Alkaline Phosphatase 63 U/L Aspartate Amino Transf (AST/SGOT) 25 U/L Alanine Aminotransferase (ALT/SGPT) 27 U/L Total Bilirubin 0.1 MG/DL Sodium Level 135 MEQ/L Potassium Level 4.1 MEQ/L Chloride Level 102 MEQ/L Carbon Dioxide Level 23.6 MEQ/L Anion Gap 9 MEQ/L Estimat Glomerular Filtration Rate 79 ML/MIN Salicylates Level 2.8 MG/DL Ethyl Alcohol Level 246 MG/DL Urine Color STRAW Urine Turbidity CLEAR Urine pH 6.5 Urine Specific [place] 1.004 Urine Protein NEG mg/dL Urine Glucose (UA) NEG mg/dL Urine Ketones NEG mg/dL Urine Occult Blood NEG Urine Nitrite NEG Urine Bilirubin NEG Urine Urobilinogen LESS THAN 2.0 MG/DL Urine Leukocyte Esterase NEG Urine WBC LESS THAN 1 /hpf Urine Squamous Epithelial Cells <1 /hpf Microscopic Urinalysis Comment CULT NOT INDICATED Urine Opiates Screen NEG Urine Barbiturates Screen NEG Urine Amphetamines Screen NEG Urine Benzodiazepines Screen POS Urine Cocaine Screen NEG Urine Cannabinoids Screen NEG MDM Supervised Visit with [facility]ENRY: No Diagnosis Primary Impression: Unspecified psychosis Referrals: [facility] Patient Instructions: General Instructions Additional Instruction: Follow-up with your primary care physician and/or Sh[facility] as soon as possible. Return to the emergency department if symptoms get worse. Disposition: 01 DISCHARGE HOME Condition: Stable Daniel Gomez Jun 12, 2017 08:54
--- NOTE | 2017-06-12 20:56 | EKG ---
Date Performed: 06/11/2017 Time Performed: 21:10:31 PTAGE: 56 years EKG: SINUS TACHYCARDIA ABNORMAL RHYTHM ECG PREVIOUS TRACING 05/31/2017 @ 12.17 Compared to prior tracing no significant change DOCTOR: Alex Rolon Interpretating Date/Time 06/12/2017 20:55:56
== END 2017-06-12 09:36 | disposition home or self-care (01) ==
LOC: NEPD 14:59 → NEPJ 06-12 09:36
DX: F23 Brief psychotic disorder (principal); E11.9 Type 2 diabetes mellitus without complications; F10.129 Alcohol abuse with intoxication, unspecified; Y90.8 Blood alcohol level of 240 mg/100 ml or more; Z79.84 Long term (current) use of oral hypoglycemic drugs; Z79.899 Other long term (current) drug therapy
CPT/HCPCS: 80053; 80307; 81001; 85025; 93005; 96372; 99284; J2060

== ENCOUNTER 2017-06-14 01:26 | Emergency (ER) | payer SELFPAY ==
[~2017-06-14] VITALS: Ht 160 cm; Wt 50.0 kg
[~2017-06-14 01:26] MED LIST changes: +ERGO2000 PO; +METH5TAB4 PO; -PANT40TA3 PO; -QUET1TAB7 PO; -ZOSY4.5P IV
[2017-06-14 01:31] VITALS: BP 141/88; PULSE 113; RESP 18; TEMP 98.5; O2SAT 96
--- NOTE | 2017-06-14 01:36 | PD ---
HPI Chief Complaint: Psychiatric Symptoms Time Seen by Provider: 01:36 Travel History International Travel<30 days: No Contact w/Intl Traveler<30days: No Traveled to known affect area: No History of Present Illness HPI patient is a 56-year-old female presents emergency department for evaluation of chest pain. She also states she's been feeling very sad and suicidal without planning. She was here a few days ago for very similar circumstances she had been admitted and had her troponins trending. She has very vague description of her chest pain states it worsens when she takes deep breath. No fevers no cough no congestion. She states she's also feeling very anxious. Denies any ingestions or attempts tonight. PFSH Past Medical History Cancer: No Cardiovascular Problems: No High Cholesterol: Yes Diabetes: Yes Diminished Hearing: No Endocrine: No Genitourinary: Yes Immune Disorder: No Musculoskeletal: No Neurologic: Yes Psychiatric: Yes Reproductive: No Respiratory: No Menopausal: Yes : 2 Para: 2 Past Surgical History Abdominal Surgery: Yes (choly) Cardiac Surgery: No Section: Yes (X 2) Cholecystectomy: Yes Ear Surgery: No Endocrine Surgery: No Eye Surgery: No Genitourinary Surgery: No Gynecologic Surgery: Yes (c section X2) Thoracic Surgery: No Other Surgery: Yes Social History Alcohol Use: No Tobacco Use: No Substance Use: Yes Allergies-Medications (Allergen,Severity, Reaction): Coded Allergies: No Known Allergies (Unverified , 06/14/17) Reported Meds & Prescriptions Reported Meds & Active Scripts Active Metformin (Metformin HCl) 500 Mg Tab 500 Mg PO BIDPC With meals Augmentin (Amoxicillin-Clavulanate) 875-125 Mg Tab 1 Tab PO BID Reported Methimazole 5 Mg Tab 5 Mg PO DAILY Vitamin D2 (Ergocalciferol) 2,000 Unit Tab 50,000 Units PO DAILY Review of Systems Except as stated in HPI: all other systems reviewed are Neg Physical Exam Narrative GENERAL: Well-developed, thin in no obvious distress. SKIN: Focused skin assessment warm/dry. HEAD: Atraumatic. Normocephalic. EYES: Pupils equal and round. No scleral icterus. No injection or drainage. ENT: No nasal bleeding or discharge. Mucous membranes pink and moist. NECK: Trachea midline. No JVD. CARDIOVASCULAR: Regular rate and rhythm. No murmur appreciated. 2+ bilateral equal pulses in all 4 extremities. RESPIRATORY: No accessory muscle use. Clear to auscultation. Breath sounds equal bilaterally. GASTROINTESTINAL: Abdomen soft, non-tender, nondistended. Hepatic and splenic margins not palpable. MUSCULOSKELETAL: No obvious deformities. No clubbing. No cyanosis. No edema. NEUROLOGICAL: Awake and alert. No obvious cranial nerve deficits. Motor grossly within normal limits. Normal speech. PSYCHIATRIC: Appropriate mood and affect; endorses suicidal ideation without planning. These are very vague thoughts. Data Data Last Documented VS Vital Signs Date Time Temp Pulse Resp B/P (MAP) Pulse Ox O2 Delivery O2 Flow Rate FiO2 06/14/17 09:17 06/14/17 05:55 111 16 95 Room Air 06/14/17 01:31 98.5 Orders Orders Electrocardiogram (06/14/17 01:40) Ckmb (Isoenzyme) Profile (06/14/17 01:40) Complete Blood Count With Diff (06/14/17 01:40) Comprehensive Metabolic Panel (06/14/17 01:40) Magnesium (Mg) (06/14/17 01:40) Prothrombin Time / Inr (Pt) (06/14/17 01:40) Act Partial Throm Time (Ptt) (06/14/17 01:40) Troponin I (06/14/17 01:40) Chest, Single Ap (06/14/17 01:40) Ecg Monitoring (06/14/17 01:40) Iv Access Insert/Monitor (06/14/17 01:40) Oximetry (06/14/17 01:40) Oxygen Administration (06/14/17 01:40) Sodium Chloride 0.9% Flush (Ns Flush) (06/14/17 01:45) Drug Screen, Random Urine (06/14/17 01:40) Alcohol (Ethanol) (06/14/17 01:40) Psych Screen (06/14/17 01:40) Haloperidol Inj (Haldol Inj) (06/14/17 02:00) CKMB (06/14/17 01:52) CKMB% (06/14/17 01:52) Lorazepam Inj (Ativan Inj) (06/14/17 03:30) Lorazepam Inj (Ativan Inj) (06/14/17 03:30) Troponin I (06/14/17 04:16) Electrocardiogram (06/14/17 ) Labs Laboratory Tests Test 06/14/17 01:52 06/14/17 04:25 White Blood Count 6.0 TH/MM3 Red Blood Count 3.95 MIL/MM3 Hemoglobin 12.7 GM/DL Hematocrit 37.1 % Mean Corpuscular Volume 93.8 FL Mean Corpuscular Hemoglobin 32.0 PG Mean Corpuscular Hemoglobin Concent 34.2 % Red Cell Distribution Width 14.5 % Platelet Count 474 TH/MM3 Mean Platelet Volume 7.4 FL Neutrophils (%) (Auto) 55.5 % Lymphocytes (%) (Auto) 34.7 % Monocytes (%) (Auto) 7.9 % Eosinophils (%) (Auto) 0.6 % Basophils (%) (Auto) 1.3 % Neutrophils # (Auto) 3.3 TH/MM3 Lymphocytes # (Auto) 2.1 TH/MM3 Monocytes # (Auto) 0.5 TH/MM3 Eosinophils # (Auto) 0.0 TH/MM3 Basophils # (Auto) 0.1 TH/MM3 CBC Comment DIFF FINAL Differential Comment Prothrombin Time 10.2 SEC Prothromb Time International Ratio 0.9 RATIO Activated Partial Thromboplast Time 22.4 SEC Blood Urea Nitrogen 11 MG/DL Creatinine 0.81 MG/DL Random Glucose 107 MG/DL Total Protein 8.2 GM/DL Albumin 3.8 GM/DL Calcium Level 8.3 MG/DL Magnesium Level 2.1 MG/DL Alkaline Phosphatase 71 U/L Aspartate Amino Transf (AST/SGOT) 38 U/L Alanine Aminotransferase (ALT/SGPT) 40 U/L Total Bilirubin 0.2 MG/DL Sodium Level 140 MEQ/L Potassium Level 4.7 MEQ/L Chloride Level 108 MEQ/L Carbon Dioxide Level 23.6 MEQ/L Anion Gap 8 MEQ/L Estimat Glomerular Filtration Rate 73 ML/MIN Total Creatine Kinase 309 U/L Creatine Kinase MB 1.1 NG/ML Creatine Kinase MB % 0.4 % Troponin I LESS THAN 0.02 NG/ML LESS THAN 0.02 NG/ML Urine Opiates Screen NEG Urine Barbiturates Screen NEG Urine Amphetamines Screen NEG Urine Benzodiazepines Screen POS Urine Cocaine Screen NEG Urine Cannabinoids Screen POS Ethyl Alcohol Level 208 MG/DL MDM Medical Decision Making Medical Screen Exam Complete: Yes Emergency Medical Condition: Yes Differential Diagnosis ACS unlikely, WI unlikely, anxiety, suicidal ideation. Narrative Course Patient roomed in the emergency department, she was given Ativan and was sleeping soundly. EKG is normal, troponin negative 2. Medically cleared from chest pain standpoint. Can be worked up outpatient. Voluntarily wants to see psychiatry. I do not believe she meets Kendrick act criteria and if would like to leave I do not see indication to hold her here against her will. Diagnosis Primary Impression: Chest pain Disposition: 01 DISCHARGE HOME Condition: Stable Tanmay Donald MD Jun 14, 2017 01:36
[2017-06-14] MEDS ORDERED: SODIUM CHLORIDE 0.9% FLUSH 10 ML FLUSH IVF PRN (01:45)
[2017-06-14 01:46] VITALS: O2SAT 99
[2017-06-14] MEDS ORDERED: HALOPERIDOL LACTATE 5 MG/ML AMP IM ONE (02:00)
--- NOTE | 2017-06-14 02:07 | RADRPT ---
EXAM DATE/TIME: 06/14/2017 01:55 [facility] COMPARISON: CHEST SINGLE AP, June 02, 2017, 19:37. INDICATIONS : Chest pain. MEDICAL HISTORY : Diabetes mellitus type II. SURGICAL HISTORY : Cholecystectomy. section ENCOUNTER: Initial ACUITY: 2 days PAIN SCORE: 10/10 LOCATION: Left chest FINDINGS: A single view of the chest demonstrates the lungs to be hyperinflated but clear. Previously seen biba silar atelectatic changes have resolved. No effusions. Heart size is normal. Mild dextroscoliosis of the thoracolumbar spine. Osseous structures are otherwise intact. CONCLUSION: Hyperinflation with no acute cardiopulmonary process. Interval resolution of previously seen bib asilar atelectatic changes. John Ibanez MD on June 14, 2017 at 2:05 Board Certified Radiologist. This report was verified electronically.
[2017-06-14 02:16] LABS: AUTOMATED NEUTROPHIL # 3.3 TH/MM3 (1.8-7.7); BASOPHIL # 0.1 TH/MM3 (0-0.2); BASOPHIL % 1.3 % (0.0-2.0); EOSINOPHIL % 0.6 % (0.0-4.0); HEMATOCRIT 37.1 % (35.0-46.0); HEMO FLAGS DIFF FINAL; LYMPH % 34.7 % (9.0-44.0); LYMPHOCYTE # 2.1 TH/MM3 (1.0-4.8); MEAN CELL VOLUME 93.8 FL (80.0-100.0); MEAN CORPUSCULAR HGB CONC 34.2 % (32.0-36.0); MONO % 7.9 % (0.0-8.0); NEUT % 55.5 % (16.0-70.0); PLATELET COUNT 474 TH/MM3 (150-450); RED BLOOD COUNT 3.95 MIL/MM3 (4.00-5.30); RED CELL DISTRIBUTION WIDTH 14.5 % (11.6-17.2)
[2017-06-14 02:23] LABS: APTT (PATIENT) 22.4 SEC (24.3-30.1); INTERNATIONAL NORMALIZED RATIO 0.9 RATIO; PROTHROMBIN TIME - PATIENT 10.2 SEC (9.8-11.6)
[2017-06-14 02:36] LABS: ALCOHOL 208 MG/DL (0-5); ALKALINE PHOSPHATASE 71 U/L (45-117); ALT (GPT) 40 U/L (10-53); ANION GAP 8 MEQ/L (5-15); AST (GOT) 38 U/L (15-37); BICARBONATE 23.6 MEQ/L (21.0-32.0); BLOOD UREA NITROGEN 11 MG/DL (7-18); CHLORIDE 108 MEQ/L (98-107); CREATINE KINASE 309 U/L (26-192); GLOMERULAR FILTRATION RATE 73 ML/MIN (>89); MAGNESIUM 2.1 MG/DL (1.5-2.5); POTASSIUM 4.7 MEQ/L (3.5-5.1); SODIUM (NA) 140 MEQ/L (136-145); TOTAL BILIRUBIN ADULT 0.2 MG/DL (0.2-1.0)
[2017-06-14 02:49] LABS: CKMB 1.1 NG/ML (0.5-3.6)
[2017-06-14] MEDS ORDERED: LORazepam 2 MG/ML VIAL IV PUSH ONE (03:30)
[2017-06-14] MEDS ORDERED: LORazepam 2 MG/ML VIAL IM ONE (03:30)
[2017-06-14 05:55] VITALS: BP 110/68; PULSE 111; RESP 16; O2SAT 95
--- NOTE | 2017-06-14 09:06 | EKG ---
Date Performed: 06/14/2017 Time Performed: 05:02:27 PTAGE: 56 years EKG: SINUS TACHYCARDIA WITH SHORT MA INTERVAL ABNORMAL RHYTHM ECG Compared to prior electrocardi ogram, rate has increased PREVIOUS TRACING : 06/14/2017 01.59 DOCTOR: Baljinder Hodgson Interpretating Date/Time 06/14/2017 09:06:08
--- NOTE | 2017-06-14 09:10 | EKG ---
Date Performed: 06/14/2017 Time Performed: 01:59:53 PTAGE: 56 years EKG: SINUS TACHYCARDIA POSSIBLE LEFT ATRIAL ENLARGEMENT ABNORMAL RHYTHM ECG No significant rangel e from prior electrocardiogram. PREVIOUS TRACING : 06/11/2017 21.10 DOCTOR: Baljinder Hodgson Interpretating Date/Time 06/14/2017 09:08:52
== END 2017-06-14 09:20 | disposition home or self-care (01) ==
LOC: NEPE 01:26 → NEPD 09:20
DX: R07.9 Chest pain, unspecified (principal); F32.9 Major depressive disorder, single episode, unspecified; R94.31 Abnormal electrocardiogram [ECG] [EKG]; E11.9 Type 2 diabetes mellitus without complications; E78.00 Pure hypercholesterolemia, unspecified
CPT/HCPCS: 71010; 80053; 80307; 82550; 82552; 83735; 84484; 85025; 85610; 85730; 93005; 96372; 99285; J1630; J2060

== ENCOUNTER 2018-02-06 17:06 | Emergency (ER) | payer OTHER ==
[~2018-02-06] VITALS: Ht 165.1 cm; Wt 52.0 kg
[2018-02-06 17:16] VITALS: BP 113/59; PULSE 82; RESP 17; TEMP 98.3; O2SAT 96
[2018-02-06] MEDS ORDERED: SODIUM CHLOR 0.9% 1000 ML INJ 1,000 ML IV SCH (18:20)
--- NOTE | 2018-02-06 18:24 | PD ---
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 She presents the police for evaluation. Reportedly the patient [place] the beach that she was walking home from the beach she was stumbling and the police felt that she was too intoxicated to return home. Thus she was brought here. She is complaining of a generalized headache. She has a contusion on her right upper eyelid, she does not recall falling. She reports that she drinks a mixed drinks at the beach. Symptoms are moderate, aggravated by alcohol use. No other complaints. PFSH Past Medical History Cancer: No Cardiovascular Problems: No High Cholesterol: Yes Diabetes: Yes Diminished Hearing: No Endocrine: No Gastrointestinal Disorders: No Genitourinary: Yes Immune Disorder: No Implanted Vascular Access Dvce: No Musculoskeletal: No Neurologic: Yes Psychiatric: Yes Reproductive: No Respiratory: No ?: Not Menopausal: Yes : 2 Para: 2 Past Surgical History Abdominal Surgery: Yes (choly) Cardiac Surgery: No Section: Yes (X 2) Cholecystectomy: Yes Ear Surgery: No Endocrine Surgery: No Eye Surgery: No Genitourinary Surgery: No Gynecologic Surgery: Yes (c section X2) Thoracic Surgery: No Other Surgery: Yes Social History Alcohol Use: No Tobacco Use: No Substance Use: Yes Allergies-Medications (Allergen,Severity, Reaction): Coded Allergies: No Known Allergies (Unverified , 06/14/17) Reported Meds & Prescriptions Reported Meds & Active Scripts Active Metformin (Metformin HCl) 500 Mg Tab 500 Mg PO BIDPC With meals Augmentin (Amoxicillin-Clavulanate) 875-125 Mg Tab 1 Tab PO BID Reported Methimazole 5 Mg Tab 5 Mg PO DAILY Vitamin D2 (Ergocalciferol) 2,000 Unit Tab 50,000 Units PO DAILY Review of Systems Except as stated in HPI: all other systems reviewed are Neg Physical Exam Narrative GENERAL: Well-developed well-nourished female no acute distress SKIN: Warm and dry. Contusion right upper eyelid. Tender to palpation. HEAD: Atraumatic. Normocephalic. EYES: Pupils equal and round. No scleral icterus. No injection or drainage. ENT: No nasal bleeding or discharge. Mucous membranes pink and moist. NECK: Trachea midline. No JVD. CARDIOVASCULAR: Regular rate and rhythm. No murmur appreciated. RESPIRATORY: No accessory muscle use. Clear to auscultation. Breath sounds equal bilaterally. GASTROINTESTINAL: Abdomen soft, non-tender, nondistended. Hepatic and splenic margins not palpable. MUSCULOSKELETAL: No obvious deformities. No clubbing. No cyanosis. No edema. NEUROLOGICAL: Awake and alert. No obvious cranial nerve deficits. Motor grossly within normal limits. Mildly slurred speech. Data Data Last Documented VS Vital Signs Date Time Temp Pulse Resp B/P (MAP) Pulse Ox O2 Delivery O2 Flow Rate FiO2 02/06/18 17:16 98.3 82 17 113/59 (77) 96 Orders Orders Basic Metabolic Panel (Bmp) (02/06/18 18:20) Complete Blood Count With Diff (02/06/18 18:20) Drug Screen, Random Urine (02/06/18 18:20) Alcohol (Ethanol) (02/06/18 18:20) Ct Brain W/O Iv Contrast(Rout) (02/06/18 ) Sodium Chlor 0.9% 1000 Ml Inj (Ns 1000 M (02/06/18 18:20) Blood Glucose (02/06/18 18:20) Labs Laboratory Tests Test 02/06/18 18:30 02/06/18 18:58 White Blood Count 4.4 TH/MM3 Red Blood Count 3.80 MIL/MM3 Hemoglobin 11.6 GM/DL Hematocrit 34.6 % Mean Corpuscular Volume 91.1 FL Mean Corpuscular Hemoglobin 30.4 PG Mean Corpuscular Hemoglobin Concent 33.4 % Red Cell Distribution Width 13.8 % Platelet Count 269 TH/MM3 Mean Platelet Volume 7.9 FL Neutrophils (%) (Auto) 55.5 % Lymphocytes (%) (Auto) 33.0 % Monocytes (%) (Auto) 9.4 % Eosinophils (%) (Auto) 0.6 % Basophils (%) (Auto) 1.5 % Neutrophils # (Auto) 2.5 TH/MM3 Lymphocytes # (Auto) 1.5 TH/MM3 Monocytes # (Auto) 0.4 TH/MM3 Eosinophils # (Auto) 0.0 TH/MM3 Basophils # (Auto) 0.1 TH/MM3 CBC Comment DIFF FINAL Differential Comment Blood Urea Nitrogen 20 MG/DL Creatinine 1.11 MG/DL Random Glucose 99 MG/DL Calcium Level 8.2 MG/DL Sodium Level 143 MEQ/L Potassium Level 3.6 MEQ/L Chloride Level 111 MEQ/L Carbon Dioxide Level 19.9 MEQ/L Anion Gap 12 MEQ/L Estimat Glomerular Filtration Rate 51 ML/MIN Ethyl Alcohol Level 287 MG/DL Urine Opiates Screen NEG Urine Barbiturates Screen NEG Urine Amphetamines Screen NEG Urine Benzodiazepines Screen NEG Urine Cocaine Screen NEG Urine Cannabinoids Screen NEG MDM Medical Decision Making Medical Screen Exam Complete: Yes Emergency Medical Condition: Yes Medical Record Reviewed: Yes Differential Diagnosis Alcohol intoxication, closed head injury, metabolic disturbance, hypoglycemia Narrative Course Plan is for lab work, CT the brain. She will be given IV fluids. CT the brain is normal. Lab work is essentially notable for an alcohol level of 287. At this point time the plan is to allow the patient remain here until she is clinically sober and then she will be discharged. Diagnosis Primary Impression: Alcohol intoxication Referrals: [facility]Other Pt SpecificInfo: No Change to Meds Disposition: 01 DISCHARGE HOME Condition: Stable Isiah Mcclain February 06, 2018 18:24
[2018-02-06 18:58] LABS: AUTOMATED NEUTROPHIL # 2.5 TH/MM3 (1.8-7.7); BASOPHIL # 0.1 TH/MM3 (0-0.2); BASOPHIL % 1.5 % (0.0-2.0); EOSINOPHIL % 0.6 % (0.0-4.0); HEMATOCRIT 34.6 % (35.0-46.0); HEMOGLOBIN 11.6 GM/DL (11.6-15.3); LYMPHOCYTE # 1.5 TH/MM3 (1.0-4.8); MEAN CELL VOLUME 91.1 FL (80.0-100.0); MEAN CORPUSCULAR HEMOGLOBIN 30.4 PG (27.0-34.0); MEAN CORPUSCULAR HGB CONC 33.4 % (32.0-36.0); MEAN PLATELET VOLUME 7.9 FL (7.0-11.0); MONO % 9.4 % (0.0-8.0); MONOCYTE # 0.4 TH/MM3 (0-0.9); NEUT % 55.5 % (16.0-70.0); PLATELET COUNT 269 TH/MM3 (150-450); RED CELL DISTRIBUTION WIDTH 13.8 % (11.6-17.2); WHITE BLOOD COUNT 4.4 TH/MM3 (4.0-11.0)
[2018-02-06 19:04] LABS: BICARBONATE 19.9 MEQ/L (21.0-32.0); CALCIUM 8.2 MG/DL (8.5-10.1); CREATININE 1.11 MG/DL (0.50-1.00)
--- NOTE | 2018-02-06 20:06 | RADRPT ---
EXAM DATE/TIME: 02/06/2018 19:44 [facility] COMPARISON: CT BRAIN W/O CONTRAST, May 27, 2017, 18:28. INDICATIONS : Trauma; fall. ETOH. RADIATION DOSE: 35.14 CTDIvol (mGy) MEDICAL HISTORY : Diabetes mellitus type 2. SURGICAL HISTORY : Cholecystectomy. ENCOUNTER: Initial ACUITY: 1 day PAIN SCALE: Non-responsive LOCATION: cranial TECHNIQUE: Multiple contiguous axial images were obtained of the head. Using automated exposure control and adj ustment of the mA and/or kV according to patient size, radiation dose was kept as low as reasonably a chievable to obtain optimal diagnostic quality images. DICOM format image data is available electro nically for review and comparison. FINDINGS: CEREBRUM: The ventricles are normal for age. No evidence of midline shift, mass lesion, hemorrhage or acute in farction. No extra-axial fluid collections are seen. POSTERIOR FOSSA: The cerebellum and brainstem are intact. The 4th ventricle is midline. The cerebellopontine angle i s unremarkable. EXTRACRANIAL: The visualized portion of the orbits is intact. SKULL: The calvaria is intact. No evidence of skull fracture. CONCLUSION: Normal examination. Francis Carranza Jr., MD on February 06, 2018 at 20:03 Board Certified Radiologist. This report was verified electronically.
== END 2018-02-07 00:33 | disposition home or self-care (01) ==
LOC: NEDAMB 17:06 → NEPD 02-07 00:33
DX: F10.129 Alcohol abuse with intoxication, unspecified (principal); E11.9 Type 2 diabetes mellitus without complications; Y90.8 Blood alcohol level of 240 mg/100 ml or more; Z79.84 Long term (current) use of oral hypoglycemic drugs
CPT/HCPCS: 70450; 80048; 80307; 85025; 99284; J7030